=== PATIENT | female | born 1960 | race Caucasian/White ===

== ENCOUNTER 2020-04-07 07:50 | Outpatient (CLI) | payer OTHER, SELFPAY ==
[2020-04-07 09:02] LABS: Basophils Absolute Auto 0.1 K/mm3 (0.0-0.1); Basophils Percent Auto 0.8 % (0.2-1.2); Eosinophils Absolute Auto 0.2 K/mm3 (0-0.3); Eosinophils Percent Auto 2.7 % (0-4.4); Hematocrit 40.2 % (37.0-47.0); Hemoglobin 13.6 g/dL (12.0-15.0); Immature Granulocyte Absolute 0.01 K/mm3 (0.00-0.031); Immature Granulocyte Percent A 0.1 % (0-0.5); Lymphocytes Absolute Auto 1.87 K/mm3 (0.9-3.2); Lymphocytes Percent Auto 24.9 % (18.3-44.2); Mean Corpuscular HGB Conc 33.8 g/dl (32-36); Mean Corpuscular Hemoglobin 30.2 pg (26-34); Mean Corpuscular Volume 89.1 fl (80-100); Mean Platelet Volume 10.1 fl (7.4-10.4); Monocytes Absolute Auto 0.9 K/mm3 (0.1-0.6); Neutrophils Absolute Auto 4.5 K/mm3 (1.3-6.7); Neutrophils Percent Auto 59.5 % (45.5-73.1); Platelet Count Result 326 k/mm3 (150-375); Red Blood Count 4.51 M/mm3 (4.2-5.4); Red Cell Distribution Width 11.9 % (11.5-14.5); White Blood Count 7.5 K/mm3 (4.5-10.0)
[2020-04-07 09:18] LABS: Alanine Aminotransferase 23 U/L (4-35); Albumin Level 4.1 g/dL (3.5-5.1); Alkaline Phosphatase 116 U/L (38-126); Anion Gap 7 mmol/L (8-16); Aspartate Amino Transferase 21 U/L (14-36); Bilirubin,Total 0.8 mg/dL (0.2-1.3); Blood Urea Nitrogen 15 mg/dL (7-17); Calcium 9.4 mg/dL (8.4-10.2); Carbon Dioxide 25 mmol/L (22-30); Chloride 107 mmol/L (98-107); Cholesterol 148 mg/dL (0-200); Estimated Glomerular Filt Rate 57; Glucose 113 mg/dL (65-105); HDL Direct 50 mg/dL; Potassium 4.1 mmol/L (3.4-5.0); Sodium 139 mmol/L (137-145); Triglycerides 111 mg/dL (<150)
[2020-04-07 09:29] LABS: LDL Cholesterol Direct 78 mg/dL
[2020-04-07 10:01] LABS: Vitamin D 25 Hydroxy 13.9 ng/mL
[2020-04-07 11:02] LABS: Free T4 Free Thyroxine Reflex 1.13 ng/dL (0.78-2.19)
[2020-04-07 12:01] LABS: Total Triiodothyronine (T3) 1.09 NG/ML (0.97-1.69)
== END 2020-04-07 07:51 | disposition home or self-care (01) ==
PROVIDERS: PCP Student in an Organized Health Care Education/Training Program; Visit Provider Student in an Organized Health Care Education/Training Program
DX: E53.8 Deficiency of other specified B group vitamins (principal); Z13.220 Encounter for screening for lipoid disorders; Z13.29 Encounter for screening for other suspected endocrine disorder; Z13.228 Encounter for screening for other metabolic disorders; Z13.0 Encounter for screening for diseases of the blood and blood-forming organs and certain disorders involving the immune mechanism; E78.5 Hyperlipidemia, unspecified
CPT/HCPCS: 36415; 80053; 80061; 82306; 82607; 82746; 84439; 84443; 84480; 85025

== ENCOUNTER 2021-07-18 04:01 | Emergency (ER) | payer OTHER, SELFPAY ==
[2021-07-18 04:18] VITALS: BP 168/104; PULSE 129; RESP 20; O2SAT 97
--- NOTE | 2021-07-18 06:05 | PC.NURSE ---
Pt reports she is here c daughter who has same symptoms, as did pt's grandson. pt c/o n/v/d x 12 hours. a/o x 4. skin pink, cool, kumar. no s/s of distress.
[2021-07-18] MEDS: SODIUM CHLORIDE 0.9% IV 1,000 ML 999 ML IV CONT (06:11)
[2021-07-18] MEDS: ONDANSETRON INJ 4 MG/2 ML VIAL IV PUSH (06:11)
[2021-07-18 06:18] LABS: Basophils Percent Auto 0.3 % (0.2-1.2); Eosinophils Percent Auto 0.1 % (0-4.4); Hematocrit 46.7 % (37.0-47.0); Hemoglobin 15.5 g/dL (12.0-15.0); Immature Granulocyte Absolute 0.03 K/mm3 (0.00-0.031); Immature Granulocyte Percent A 0.3 % (0-0.5); Lymphocytes Absolute Auto 0.49 K/mm3 (0.9-3.2); Lymphocytes Percent Auto 4.3 % (18.3-44.2); Mean Corpuscular HGB Conc 33.2 g/dl (32-36); Mean Corpuscular Hemoglobin 30.1 pg (26-34); Mean Corpuscular Volume 90.7 fl (80-100); Mean Platelet Volume 10.3 fl (7.4-10.4); Monocytes Absolute Auto 0.8 K/mm3 (0.1-0.6); Monocytes Percent Auto 6.6 % (2.6-8.5); Neutrophils Percent Auto 88.4 % (45.5-73.1); Platelet Count Result 269 k/mm3 (150-375); Red Blood Count 5.15 M/mm3 (4.2-5.4); Red Cell Distribution Width 11.9 % (11.5-14.5); White Blood Count 11.3 K/mm3 (4.5-10.0)
--- NOTE | 2021-07-18 06:25 | ED.GENADULT ---
HPI - General Adult General Chief complaint: Nausea/Vomiting/Diarrhea Stated complaint: vomiting Time Seen by Provider: 07/18/21 05:08 History of Present Illness HPI narrative: Patient is a 60-year-old female who presents ER with nausea/vomiting/diarrhea. Sudden onset last day. No alleviating factors at home. Feels dehydrated. No syncope or dizziness. Her daughter and her grand child both have had GI illness. No loss of taste or smell. Related Data Home Medications Medication Instructions Recorded Confirmed atorvastatin 07/18/21 diltiazem HCl [DILT-XR] PO 07/18/21 doxazosin mg 07/18/21 enalapril maleate 07/18/21 fluticasone propion-salmeterol INHALATION 07/18/21 [Wixela Inhub] methylphenidate HCl 07/18/21 omeprazole 07/18/21 Allergies Allergy/AdvReac Type Severity Reaction Status Date / Time metoclopramide [From Reglan] AdvReac Hallucinati Verified 07/18/21 05:09 ng naproxen AdvReac Swelling Verified 07/18/21 05:09 of Lip/Tongue/Throat Review of Systems Review of Systems: All systems reviewed & are unremarkable except as noted in HPI and below Constitutional: Constitutional: Denies chills, Reports fatigue, Denies fever(s) and Reports weakness ENT: Denies nasal congestion and Denies sore throat Cardiovascular: Cardiovascular: Denies chest pain and Denies radiating jaw, neck or arm pain Gastrointestinal: Gastrointestinal: Denies abdominal pain, Reports diarrhea, Reports nausea and Reports vomiting Genitourinary: Genitourinary: Denies nocturia and Denies dysuria PMFSH Past Medical History Medical History (Updated 07/18/21 @ 06:29 by Ben Bynum MD) Chronic kidney disease Hypertension Surgical History Surgical History (Updated 07/18/21 @ 06:27 by Ben Bynum MD) History of cholecystectomy Social History Social History (Updated 07/18/21 @ 06:27 by Ben Bynum MD) Smoking status: Never smoker Exam Narrative: GENERAL: Fatigued-appearing, well-nourished, and in no acute distress. HEAD: Normocephalic, atraumatic. CHEST: Clear to auscultation. No respiratory distress. HEART: Tachycardic and regular. Normal peripheral pulses. ABDOMEN: Soft, nontender, nondistended. EXTREMITIES: Normal range of motion. No edema. SKIN: Warm, dry, no rash. NEURO: Alert and oriented x3. PSYCH: Normal mood and affect. Course Course Emergency Course: Patient given Zofran and fluids. Vital Signs Vital signs: Vital Signs Pulse Rate 129 H 07/18/21 04:18 Respiratory Rate 20 07/18/21 04:18 Blood Pressure 168/104 H 07/18/21 04:18 Pulse Oximetry 97 07/18/21 04:18 Pulse Rate 129 H 07/18/21 04:18 Respiratory Rate 20 07/18/21 04:18 Blood Pressure 168/104 H 07/18/21 04:18 Pulse Oximetry 97 07/18/21 04:18 Medical Decision Making Vital Signs Vital Signs: Vital Signs Pulse Rate 129 H 07/18/21 04:18 Respiratory Rate 20 07/18/21 04:18 Blood Pressure 168/104 H 07/18/21 04:18 Pulse Oximetry 97 07/18/21 04:18 Pulse Rate 129 H 07/18/21 04:18 Respiratory Rate 20 07/18/21 04:18 Blood Pressure 168/104 H 07/18/21 04:18 Pulse Oximetry 97 07/18/21 04:18 Lab Data Result diagrams: 07/18/21 06:06 07/18/21 06:06 Labs: Lab Results 07/18/21 07/18/21 Range/Units 06:06 06:06 WBC 11.3 H (4.5-10.0) K/mm3 RBC 5.15 (4.2-5.4) M/mm3 Hgb 15.5 H (12.0-15.0) g/dL Hct 46.7 (37.0-47.0) % MCV 90.7 (80-100) fl MCH 30.1 (26-34) pg MCHC 33.2 (32-36) g/dl RDW 11.9 (11.5-14.5) % Plt Count 269 (150-375) k/mm3 MPV 10.3 (7.4-10.4) fl Immature Gran % (Auto) 0.3 (0-0.5) % Neut % (Auto) 88.4 H (45.5-73.1) % Lymph % (Auto) 4.3 L (18.3-44.2) % [place] % (Auto) 6.6 (2.6-8.5) % Eos % (Auto) 0.1 (0-4.4) % Baso % (Auto) 0.3 (0.2-1.2) % Lymph # (Auto) 0.49 L (0.9-3.2) K/mm3 [place] # (Auto) 0.8 H (0.1-0.6) K/mm3 Eos # (Auto) 0.0 (0-0.3
[2021-07-18 06:38] LABS: Alanine Aminotransferase 23 U/L (4-35); Albumin Level 4.4 g/dL (3.5-5.1); Alkaline Phosphatase 143 U/L (38-126); Anion Gap 11 mmol/L (8-16); Aspartate Amino Transferase 26 U/L (14-36); Bilirubin,Total 1.1 mg/dL (0.2-1.3); Blood Urea Nitrogen 14 mg/dL (7-17); Calcium 9.5 mg/dL (8.4-10.2); Carbon Dioxide 22 mmol/L (22-30); Chloride 106 mmol/L (98-107); Estimated CRCL calculation 52 ml/min; Estimated Glomerular Filt Rate 57; Glucose 141 mg/dL (65-110); Lipase 103 U/L (23-300); Sodium 139 mmol/L (137-145)
[2021-07-18 07:26] VITALS: BP 144/96; PULSE 90; RESP 18; O2SAT 100
== END 2021-07-18 07:28 | disposition home or self-care (01) ==
PROVIDERS: Emergency Provider Emergency Medicine; PCP Student in an Organized Health Care Education/Training Program
DX: K52.9 Noninfective gastroenteritis and colitis, unspecified (principal); I12.9 Hypertensive chronic kidney disease with stage 1 through stage 4 chronic kidney disease, or unspecified chronic kidney disease; N18.9 Chronic kidney disease, unspecified
CPT/HCPCS: 36415; 80053; 83690; 85025; 96361; 96374; 99284; J2405; J7030

== ENCOUNTER 2021-11-18 20:51 | Emergency (ER) | payer OTHER, SELFPAY ==
--- NOTE | ~2021-11-18 | XR_ITS ---
EXAMINATION: XR hand RT min 3V DATE: 11/18/2021 21:23 INDICATION: Right hand pain TECHNIQUE: Posteroanterior, oblique and lateral views of the right hand were obtained. COMPARISON: None. FINDINGS: Diffuse osteopenia. Bone alignment is normal. No fracture. Of mild polyarticular osteoarthritis at th e distal radioulnar, radiocarpal, triscaphe, first carpometacarpal and multiple interphalangeal joint s. No erosions to suggest inflammatory arthritis. IMPRESSION: 1. Mild polyarticular osteoarthritis. Reviewed, dictated and finalized at location A.
[2021-11-18 20:58] VITALS: BP 181/103; PULSE 89; RESP 16; TEMP 36.4; O2SAT 98
--- NOTE | 2021-11-18 21:11 | ED.ANIMALBIT ---
HPI - Animal Bite General Chief Complaint: Animal Bite Stated Complaint: dog bite right hand Time Seen by Provider: 11/18/21 21:06 Source: patient Mode of arrival: ambulatory History of Present Illness HPI narrative: 61-year-old female presents today with complaints of dog bite to right hand 15 minutes prior to arrival. Patient states it was her own dog that bit her and is up-to-date on shots. Patient states she was trying to take something from the dog when it bit her. Bleeding controlled upon arrival. Patient unsure of tetanus status. States that it feels like her hand is broken. Patient with full range of motion. CMS intact. Related Data Home Medications Medication Instructions Recorded Confirmed atorvastatin 07/18/21 diltiazem HCl [DILT-XR] PO 07/18/21 doxazosin mg 07/18/21 enalapril maleate 07/18/21 fluticasone propion-salmeterol INHALATION 07/18/21 [Wixela Inhub] methylphenidate HCl 07/18/21 omeprazole 07/18/21 Allergies Allergy/AdvReac Type Severity Reaction Status Date / Time iohexol Allergy Hives Verified 11/18/21 21:04 [From contrast - CT, X-RAY] metoclopramide [From Reglan] AdvReac Hallucinati Verified 11/18/21 21:03 ng naproxen AdvReac Swelling Verified 11/18/21 21:03 of Lip/Tongue/Throat Review of Systems Review of Systems: CONSTITUTIONAL: Denies fever, chills, or sweats. EYES: Denies visual changes, redness, or discharge. ENT: Denies rhinorrhea, congestion, sore throat, or otalgia. CARDIOVASCULAR: Denies chest pain, palpitations, or edema. RESPIRATORY: Denies cough or dyspnea. GASTROINTESTINAL: Denies abdominal pain, nausea, vomiting, or diarrhea. GENITOURINARY: Denies dysuria or hematuria. SKIN: Dog bite to right hand. Denies rash or itching. MUSCULOSKELETAL: Denies back pain, joint pain, or myalgia. NEUROLOGIC: Denies headache, numbness, dizziness, or weakness. PSYCHIATRIC: Denies anxiety or depression. [facility] Past Medical History Medical History Chronic kidney disease Hypertension Surgical History Surgical History History of cholecystectomy Social History Social History Smoking status: Never smoker Exam Narrative: GENERAL: Well-appearing, well-nourished, and in no acute distress. HEAD: Normocephalic, atraumatic. EYES: PERRLA and EOMI. ENT: Nares clear, no rhinorrhea or epistaxis. Mucous membranes moist. Oropharynx without tonsillar hypertrophy exudate or other lesions. Bilateral TMs pearly scott nonbulging NECK: Supple. No adenopathy or masses. No carotid bruits or JVD CHEST: Clear to auscultation. No respiratory distress. No wheezes rales or rhonchi HEART: Regular rate and rhythm. No murmur heard. Normal peripheral pulses. ABDOMEN: Soft, nontender, nondistended, normal active bowel sounds. EXTREMITIES: Normal range of motion. No edema. SKIN: 4 puncture dickey noted to right hand 2 on left dorsal side and 2 on right dorsal side near base of thumb. No erythema noted, purulent drainage, or warmth. Warm, dry, no rash. NEURO: No focal deficits. Alert and oriented x3. PSYCH: Normal mood and affect. Course Vital Signs Vital signs: Vital Signs Temperature 36.4 C 11/18/21 20:58 Pulse Rate 89 11/18/21 20:58 Respiratory Rate 16 11/18/21 20:58 Blood Pressure 181/103 H 11/18/21 20:58 Pulse Oximetry 98 11/18/21 20:58 Temperature 36.4 C 11/18/21 20:58 Pulse Rate 88 11/18/21 22:10 Respiratory Rate 16 11/18/21 22:10 Blood Pressure 174/90 H 11/18/21 22:10 Pulse Oximetry 100 11/18/21 22:10 MDM - Animal Bite Differential Diagnosis Differential diagnosis: Likely bite by animal Medical Records Attestation: I reviewed the patient's medical records. Imaging Data Radiologist's impression: Impressions Hand X-Ray 11/18/21 21:28 IMPRESSION: 1. Mil
[2021-11-18] MEDS: AMOXICILLIN/CLAVULANATE K 875-125 MG TAB 1 TABLET PO (21:46)
[2021-11-18] MEDS: TETANUS,DIPHTHERIA,AC PERTUSSIS ADULT (0.5 ML) BOOSTRIX IM (21:46)
[2021-11-18 22:10] VITALS: BP 174/90; PULSE 88; RESP 16; O2SAT 100
== END 2021-11-18 22:16 | disposition home or self-care (01) ==
LOC: ANHED 21:58
PROVIDERS: Emergency Provider Nurse Practitioner Family; PCP Student in an Organized Health Care Education/Training Program
DX: S61.451A Open bite of right hand, initial encounter (principal); Z23 Encounter for immunization; I12.9 Hypertensive chronic kidney disease with stage 1 through stage 4 chronic kidney disease, or unspecified chronic kidney disease; N18.9 Chronic kidney disease, unspecified; M18.9 Osteoarthritis of first carpometacarpal joint, unspecified; M19.041 Primary osteoarthritis, right hand; M19.031 Primary osteoarthritis, right wrist; W54.0XXA Bitten by dog, initial encounter
CPT/HCPCS: 73130; 90471; 90715; 99283; A9270

== ENCOUNTER 2024-08-29 11:40 | Outpatient (CLI) | payer MEDICARE, SELFPAY ==
--- NOTE | ~2024-08-29 | US_ITS ---
EXAMINATION: US venous doppler LE DATE: 08/29/2024 12:15 INDICATION: Right lower limb pain and swelling TECHNIQUE: Grayscale ultrasound images without and with compression and Doppler ultrasound images of the right lower extremity veins were obtained. COMPARISON: None. FINDINGS: The visualized portions of right common femoral vein, profunda (deep) femoral vein, femoral vein, pop liteal vein, peroneal trunk, posterior tibial veins, peroneal veins, gastrocnemius vein and greater s aphenous vein outflow are patent. IMPRESSION: 1. No deep venous thrombosis in the right lower limb. Reviewed, dictated and finalized at location B. BALL MOLDER
--- OUTSIDE RECORDS SUMMARY | 2024-08-29 12:05 | XMS_ITS | Encounter Summary ---
Author Organization [facility] Address [address] [place] [address] Care Team Providers Care News Editor Name Role Phone Chance Medellin MD Primary Care Provider [phone] Encounter Details Date Type Department Care Team (Late st Contact Info) Description 04/03/2007 Outpatient Historical [facility] 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
--- OUTSIDE RECORDS SUMMARY | 2024-08-29 12:05 | XMS_ITS | Encounter Summary ---
Author Organization [facility] Address [address] [place] [address] Care Team Providers Care Computer Game Tester Name Role Phone Chance Medellin MD Primary Care Provider [phone] Encounter Details Date Type Department Care Team (Late st Contact Info) Description 02/04/2007 Outpatient Historical Division of Neurology [address] [address] Nohemy Benitez MD [address] [facility] [address] [place] [address] Social History Tobacco Use Types Packs/Day Years Used Date Smoking Tobacco: Never Assessed Comments Unknown Sex and Gender Information Value Date Recorded Sex Assigned at Not on file 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
--- OUTSIDE RECORDS SUMMARY | 2024-08-29 12:06 | XMS_ITS | Encounter Summary ---
Author Organization [facility] Address [address] [place]: [place] [address] Care Team Providers Care Inspector Automatic Typewriter Name Role Phone Chance Medellin MD Primary Care Provider [phone] Encounter Details Date Type Department Care Team (Late st Contact Info) Description 04/23/1991 [place] 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 [address] [place] [phone] PCP - General Internal Medicine 04/28/16 documented as of this encounter
--- OUTSIDE RECORDS SUMMARY | 2024-08-29 12:06 | XMS_ITS | Encounter Summary ---
Author Organization [facility] Address [address] [place] [address] Care Team Providers Care Company Pilot Name Role Phone Chance Medellin MD Primary Care Provider [phone] Encounter Details Date Type Department Care Team (Late st Contact Info) Description 11/25/1999 Outpatient Historical [facility] Internal Medicine [facility] [address] [facility] [address] [facility] [address] [place] [address] Niesha Arevalo MD [address] [place] [address] Social History Tobacco Use Types Packs/Day Years Used Date Smoking Tobacco: Never Assessed Comments Unknown Sex and Gender Information Value Date Recorded Sex Assigned at Not on file 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
--- OUTSIDE RECORDS SUMMARY | 2024-08-29 12:06 | XMS_ITS | Encounter Summary ---
Author Organization [facility] Address [address] [place] [address] Care Team Providers Care Sandblaster Paint Sprayer Name Role Phone Chance Medellin MD Primary Care Provider [phone] Encounter Details Date Type Department Care Team (Late st Contact Info) Description 05/07/2007 Outpatient Historical [facility] 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
--- OUTSIDE RECORDS SUMMARY | 2024-08-29 12:06 | XMS_ITS | Encounter Summary ---
Author Organization [facility] Address [address] [place] [address] Care Team Providers Care Steam Press Tender Name Role Phone Chance Medellin MD Primary Care Provider [phone] Encounter Details Date Type Department Care Team (Late st Contact Info) Description 12/04/2001 Outpatient Historical [facility] Internal Medicine [facility] [address] [place] [address] Niesha Arevalo MD [address] [place] [address] Social History Tobacco Use Types Packs/Day Years Used Date Smoking Tobacco: Never Assessed Comments Unknown Sex and Gender Information Value Date Recorded Sex Assigned at Not on file Legal Sex Female 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
--- OUTSIDE RECORDS SUMMARY | 2024-08-29 12:06 | XMS_ITS | Encounter Summary ---
Author Organization [facility] Address 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
--- OUTSIDE RECORDS SUMMARY | 2024-08-29 12:06 | XMS_ITS | Encounter Summary ---
Author Organization [facility] Address [address] [place] [address] Care Team Providers Care Earthmoving Plant Operator Name Role Phone Chance Medellin MD Primary Care Provider [phone] Encounter Details Date Type Department Care Team (Late st Contact Info) Description 11/05/2007 Outpatient Historical [facility] Primary Care - [address] [place] [address] Franklyn Tolbert MD [address] [facility] [address] [address] Social History Tobacco Use Types Packs/Day Years Used Date Smoking Tobacco: Never Assessed Comments Unknown Sex and Gender Information Value Date Recorded Sex Assigned at Not on file Legal Sex Female 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
--- OUTSIDE RECORDS SUMMARY | 2024-08-29 12:06 | XMS_ITS | Encounter Summary ---
Author Organization [facility] Address [address] [place] [address] Care Team Providers Care Warper Tender Name Role Phone Chance Medellin MD Primary Care Provider [phone] Encounter Details Date Type Department Care Team (Late st Contact Info) Description 11/18/1999 Outpatient Historical [facility] Internal Medicine [facility] [address] [facility] [address] [place] [address] Niesha Arevalo MD [address] [place] [address] Social History Tobacco Use Types Packs/Day Years Used Date Smoking Tobacco: Never Assessed Comments Unknown Sex and Gender Information Value Date Recorded Sex Assigned at Not on file Legal Sex Female 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
--- OUTSIDE RECORDS SUMMARY | 2024-08-29 12:06 | XMS_ITS | Encounter Summary ---
Author Organization [facility] Address [address] [place] [address] Care Team Providers Care Junior Underwriter Name Role Phone Chance Medellin MD Primary Care Provider [phone] Encounter Details Date Type Department Care Team (Late st Contact Info) Description 06/11/2007 Outpatient Historical [facility] Internal Medicine Medical [facility] [address] [facility] [address] [address] Nina Contreras MD Social History Tobacco Use Types Packs/Day Years Used Date Smoking Tobacco: Never Assessed Comments Unknown Sex and Gender Information Value Date Recorded Sex Assigned at Not on file Legal Sex Female 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
--- OUTSIDE RECORDS SUMMARY | 2024-08-29 12:06 | XMS_ITS | Encounter Summary ---
Author Organization [facility] Address [address] [place] [address] Care Team Providers Care Technical Service Representative Name Role Phone Chance Medellin MD Primary Care Provider [phone] Encounter Details Date Type Department Care Team (Late st Contact Info) Description 12/02/1999 Outpatient Historical [facility] Internal Medicine [facility] [address] [facility] [address] [place] [address] Niesha Arevalo MD [address] [place] [address] Social History Tobacco Use Types Packs/Day Years Used Date Smoking Tobacco: Never Assessed Comments Unknown Sex and Gender Information Value Date Recorded Sex Assigned at Not on file Legal Sex Female 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
--- OUTSIDE RECORDS SUMMARY | 2024-08-29 12:06 | XMS_ITS | Encounter Summary ---
Author Organization [facility] Address [address] [place] [address] Care Team Providers Care Dividing Machine Operator Helper Name Role Phone Chance Medellin MD Primary Care Provider [phone] Encounter Details Date Type Department Care Team (Late st Contact Info) Description 02/23/1999 Outpatient Historical [facility] Internal Medicine [facility] [address] [facility] [address] [place] [address] Niesha Arevalo MD [address] [place] [address] Social History Tobacco Use Types Packs/Day Years Used Date Smoking Tobacco: Never Assessed Comments Unknown Sex and Gender Information Value Date Recorded Sex Assigned at Not on file Legal Sex Female 4:22 AM REGISTERED REPRESENTATIVE Gender Identity Not on file Sexual Orientation Not on file documented as of this encounter Plan of Treatment Not on file documented as of this encounter Visit Diagnoses Not on filedocumented in this encounter Care Teams Dividing Machine Operator Helper Relationship Specialty Start Date End Date Chance Medellin MD [address] [facility] [address] [place] [address] PCP - General Internal Medicine 04/28/16 documented as of this encounter
--- OUTSIDE RECORDS SUMMARY | 2024-08-29 12:06 | XMS_ITS | Encounter Summary ---
Author Organization [facility] Address [address] [place] [address] Care Team Providers Care Carcass Washer Name Role Phone Chance Medellin MD Primary Care Provider [phone] Encounter Details Date Type Department Care Team (Late st Contact Info) Description 08/19/2001 Outpatient Historical [facility] Internal Medicine [facility] [address] [facility] [address] [place] [address] Niesha Arevalo MD [address] [place] [address] Social History Tobacco Use Types Packs/Day Years Used Date Smoking Tobacco: Never Assessed Comments Unknown Sex and Gender Information Value Date Recorded Sex Assigned at Not on file Legal Sex Female 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
--- OUTSIDE RECORDS SUMMARY | 2024-08-29 12:06 | XMS_ITS | Encounter Summary ---
Author Organization [facility] Address [address] [place] [address] Care Team Providers Care Research Manufacturing Operator Name Role Phone Chance Medellin MD Primary Care Provider [phone] Encounter Details Date Type Department Care Team (Late st Contact Info) Description 09/16/[address] [facility] Internal Medicine [facility] [address] [facility] [address] [place] [address] Niesha Arevalo MD [address] [place] [address] Social History Tobacco Use Types Packs/Day Years Used Date Smoking Tobacco: Never Assessed Comments Unknown Sex and Gender Information Value Date Recorded Sex Assigned at Not on file Legal Sex Female 4:22 AM DIRECTOR OF LABOR RELATIONS Gender Identity Not on file Sexual Orientation Not on file documented as of this encounter Plan of Treatment Not on file documented as of this encounter Visit Diagnoses Not on filedocumented in this encounter Care Teams Research Manufacturing Operator Relationship Specialty Start Date End Date Chance Medellin MD [address] [facility] [address] [place] [phone] PCP - General Internal Medicine 04/28/16 documented as of this encounter
--- OUTSIDE RECORDS SUMMARY | 2024-08-29 12:06 | XMS_ITS | Encounter Summary ---
Author Organization [facility] Address [address] [place] [address] Care Team Providers Care Java Development Manager Name Role Phone Chance Medellin MD Primary Care Provider [phone] Encounter Details Date Type Department Care Team (Late st Contact Info) Description 07/19/2001 Outpatient Historical [facility] Internal Medicine [facility] [address] [facility] [address] [place] [address] Niesha Arevalo MD [address] [place] [address] Social History Tobacco Use Types Packs/Day Years Used Date Smoking Tobacco: Never Assessed Comments Unknown Sex and Gender Information Value Date Recorded Sex Assigned at Not on file Legal Sex Female 4:22 AM DISTANCE EDUCATION DIRECTOR Gender Identity Not on file Sexual Orientation Not on file documented as of this encounter Plan of Treatment Not on file documented as of this encounter Visit Diagnoses Not on filedocumented in this encounter Care Teams Java Development Manager Relationship Specialty Start Date End Date Chance Medellin MD [address] [facility] [address] [place] [phone] PCP - General Internal Medicine 04/28/16 documented as of this encounter
--- OUTSIDE RECORDS SUMMARY | 2024-08-29 12:06 | XMS_ITS | Encounter Summary ---
Author Organization [facility] Address [address] [place] [address] Care Team Providers Care Raw Stock Drier Tender Name Role Phone Chance Medellin MD Primary Care Provider [phone] Encounter Details Date Type Department Care Team (Late st Contact Info) Description 06/11/[address] [facility] [address] [facility] [address] [address] Nohemy Benitez MD [address] [place] [address] Social History Tobacco Use Types Packs/Day Years Used Date Smoking Tobacco: Never Assessed Comments Unknown Sex and Gender Information Value Date Recorded Sex Assigned at Not on file Legal Sex Female 4:22 AM UNIX ANALYST Gender Identity Not on file Sexual Orientation Not on file documented as of this encounter Plan of Treatment Not on file documented as of this encounter Visit Diagnoses Not on filedocumented in this encounter Care Teams Raw Stock Drier Tender Relationship Specialty Start Date End Date Chance Medellin MD [address] [facility] [address] [place] [phone] PCP - General Internal Medicine 04/28/16 documented as of this encounter
--- OUTSIDE RECORDS SUMMARY | 2024-08-29 12:06 | XMS_ITS | Encounter Summary ---
Author Organization [facility] Address [address] [place] [address] Care Team Providers Care General Matcher Name Role Phone Chance Medellin MD Primary Care Provider [phone] Encounter Details Date Type Department Care Team (Late st Contact Info) Description 04/09/2007 Outpatient Historical [facility] [address] [facility] [address] [address] Nohemy Benitez MD [address] [facility] [address] [place] [address] Social History Tobacco Use Types Packs/Day Years Used Date Smoking Tobacco: Never Assessed Comments Unknown Sex and Gender Information Value Date Recorded Sex Assigned at Not on file Legal Sex Female 4:22 AM SR. PAYROLL PROCESSOR Gender Identity Not on file Sexual Orientation Not on file documented as of this encounter Plan of Treatment Not on file documented as of this encounter Visit Diagnoses Not on filedocumented in this encounter Care Teams General Matcher Relationship Specialty Start Date End Date Chance Medellin MD [address] [facility] [address] [place] [phone] PCP - General Internal Medicine 04/28/16 documented as of this encounter
--- OUTSIDE RECORDS SUMMARY | 2024-08-29 12:06 | XMS_ITS | Encounter Summary ---
Author Organization [employer] Address [address] [place] [address] Care Team Providers Care Brass Molder Helper Name Role Phone Chance Medellin MD Primary Care Provider [phone] Encounter Details Date Type Department Care Team (Late st Contact Info) Description 09/19/1999 Outpatient Historical [facility] Gurpreet Kevin MD NO ADDRESS ON FILE Blood in stool (Primary Dx) Social History Tobacco Use Types Packs/Day Years Used Date Smoking Tobacco: Never Assessed Comments Unknown Sex and Gender Information Value Date Recorded Sex Assigned at Not on file Legal Sex Female 4:22 AM DIESEL ENGINE INSPECTOR Gender Identity Not on file Sexual Orientation Not on file documented as of this encounter Plan of Treatment Not on file documented as of this encounter Visit Diagnoses Diagnosis Blood in stool- Primary documented in this encounter Care Teams Brass Molder Helper Relationship Specialty Start Date End Date Chance Medellin MD [address] [facility] [address] [place] [phone] PCP - General Internal Medicine 04/28/16 documented as of this encounter
--- OUTSIDE RECORDS SUMMARY | 2024-08-29 12:06 | XMS_ITS | Encounter Summary ---
Author Organization [facility] Address [address] [place] [address] Care Team Providers Care Police Lieutenant Precinct Name Role Phone Chance Medellin MD Primary Care Provider [phone] Encounter Details Date Type Department Care Team (Latest Contact Info) Description 11/05/2007 Outpatient Historical [facility] Primary Care - [address] [place] [address] Franklyn Tolbert MD [address] [facility] [address] [address] Other and Unspecified Hyperlipidemia Social History Tobacco Use Types Packs/Day Years Used Date Smoking Tobacco: Never Assessed Comments Unknown Sex and Gender Information Value Date Recorded Sex Assigned at Not on file Legal Sex Female 4:22 AM ANESTHESIOLOGY FELLOW Gender Identity Not on file Sexual Orientation Not on file documented as of this encounter Plan of Treatment Not on file documented as of this encounter Procedures Procedure Name Priority Date/Time Associated Diagnosis Comments URINALYSIS WITH REFLEX CULTURE Routine 11/05/2007 9:39 PM CDT URINALYSIS W/REFLEX MICROSCOPIC Routine 11/05/2007 9:39 PM CDT TSH Routine 11/05/2007 9:39 PM CDT LIPID PANEL Routine 11/05/2007 9:39 PM CDT COMPREHENSIVE METABOLIC PANEL Routine 11/05/2007 9:39 PM CDT documented in this encounter Results * URINALYSIS (11/05/2007 9:39 PM CDT) BLOOD UA Negative Negative [facility] GLUCOSE UA Negative Negative [facility] COLOR UA Yellow [facility] NITRITE UA Negative Negative [facility] UROBILINOGEN UA <1 <=1 mg/dL [facility] PH UA 6.0 5.0 - 8.0 [facility] KETONES UA Negative Negative [facility] CLARITY UA Clear Clear [facility] PROTEIN UA Negative Negative [facility] BILIRUBIN UA Negative Negative [facility] LEUKOCYTE ESTERASE UA Negative Negative [facility] SPECIFIC GRAVITY UA 1.014 1.001 - 1.035 [facility] 11/05/2007 9:39 PM CDT 11/05/2007 10:25 PM CDT Franklyn Tolbert MD URINE ORDERABLES Final Resul t [facility] [address] [facility] [place] [address] * URINALYSIS WITH REFLEX CULTURE (11/05/2007 9:39 PM CDT) URINE CULTURE ORDER Not indicated [facility] Comment: Criteria for a reflex culture include one or more of the following: Abnormal nitrite, leukocyte esterase, WBCs or RBCs. Lack of qualifying criteria does not exclude the possiblity of a urinary tract infection. Dilute urine, drug interference, etc. may decrease the sensitivity of the criteria analytes. Urine, clean catch 11/05/2007 9:39 PM CDT 11/05/2007 10:25 PM CDT Franklyn Tolbert MD URINE ORDERABLES Final Resul t Performing Organization Address [facility]/ZIP Co de Phone Number [facility] [address] [place], [place] [address] * TSH (11/05/2007 9:39 PM CDT) Pathologist [facility] TSH 2.90 0.27 - 4.20 uU/mL [facility] Blood specimen (specimen) 11/05/2007 9:39 PM CDT 11/05/2007 10:25 PM CDT Franklyn Tolbert MD CHEMISTRY ORDERABLES Final R esult Performing Organization Address [facility] Co de Phone Number [facility] [address] [place] [address] * COMPREHENSIVE METABOLIC PANEL (11/05/2007 9:39 PM CDT) [facility] GLUCOSE 93 65 - 99 mg/dL [facility] AST 19 12 - 32 U/L [facility] BUN 9 6 - 20 mg/dL [facility] CALCIUM 9.0 8.4 - 10.2 mg/dL [facility] ALBUMIN 4.3 3.4 - 4.8 g/dL [facility] CHLORIDE 104 96 - 108 mmol/L [facility] CREATININE 0.91 0.51 - 0.95 mg/dL [facility] ALT 15 0 - 31 U/L [facility] SODIUM 139 135 - 145 mmol/L [facility] ALKALINE PHOSPHATASE 82 35 - 104 U/L [facility] CO2 25 22 - 30 mmol/L [facility] BILIRUBIN TOTAL 0.4 0.2 - 1.0 mg/dL [facility] POTASSIUM 3.7 3.5 - 4.9 mmol/L [facility] TOTAL PROTEIN 7.5 6.3 - 8.6 g/dL [facility] GFR, >60 >=60 mL/min/1.7 sq meter [facility] GFR >60 >=60 mL/min/1.7 sq meter [facility] Comment: Estimated GFR rate interpretative information for both Americans and non- Americans is available on the [facility] Intranet at: [email or web address] Select: Lab Policies and Procedures Select: Reference Ranges - GFR Blood specimen (specimen) 11/05/2007 9:39 PM CDT 11/05/2007 10:25 PM CDT Franklyn Tolbert MD CHEMISTRY ORDERABLES Edited [facility] [address] [facility] [facility] [place] [address] * (ABNORMAL) LIPID PANEL (11/05/2007 9:39 PM CDT) HDL 48 40 - 59 mg/dL [facility] CHOLESTEROL 181 100 - 199 mg/dL [facility] CHOL/HDL RATIO 3.8 2.0 - 5.0 [facility] TRIGLYCERIDE 116 10 - 149 mg/dL [facility] LDL CALCULATED 110(H) <=99 mg/dL [facility] LIPID PANEL COMMENT See Below [facility] Comment: The adult ATP and pediatric NCEP classifications for lipids are available on the [facility] Intranet at: [email or web address] Select: Lab Policies and Procedures,Current Select: Lipid Panel Interpretation Blood specimen (specimen) 11/05/2007 9:39 PM CDT 11/05/2007 10:25 PM CDT Franklyn Tolbert MD CHEMISTRY ORDERABLES Edited [facility] [address] [place] [address] documented in this encounter Visit Diagnoses Diagnosis Other and unspecified hyperlipidemia documented in this encounter Care Teams Police Lieutenant Precinct Relationship Specialty Start Date End Date Chance Medellin MD [address] [address] PCP - General Internal Medicine 04/28/16 documented as of this encounter
--- OUTSIDE RECORDS SUMMARY | 2024-08-29 12:06 | XMS_ITS | Encounter Summary ---
Author Organization [facility] Address [address] [facility] Attn: Epic Prelude ADT [place] [address] Care Team Providers Care Chief Of Staff Name Role Phone Chance Medellin MD Primary Care Provider [phone] Encounter Details Date Type Department Care Team (Latest Contact Info) Description 09/19/2007 Orders Only Nina Contreras MD Social History Tobacco Use Types Packs/Day Years Used Date Smoking Tobacco: Never Assessed Comments Unknown Sex and Gender Information Value Date Recorded Sex Assigned at Not on file Legal Sex Female 4:22 AM LINTER SAW SHARPENER Gender Identity Not on file Sexual Orientation Not on file documented as of this encounter Plan of Treatment Not on file documented as of this encounter Visit Diagnoses Not on filedocumented in this encounter Care Teams Chief Of Staff Relationship Specialty Start Date End Date Chance Medellin MD [address] [address] PCP - General Internal Medicine 04/28/16 documented as of this encounter
--- OUTSIDE RECORDS SUMMARY | 2024-08-29 12:06 | XMS_ITS | Encounter Summary ---
Author Organization [facility] Address [address] [place] [address] Care Team Providers Care Fruit Farmer Name Role Phone Chnace Medellin MD Primary Care Provider [phone] Encounter Details Date Type Department Care Team (Late st Contact Info) Description 11/22/2001 Outpatient Historical [facility] Internal Medicine [facility] [address] [facility] [address] [place] [address] Niesha Arevalo MD [address] [place] [address] Social History Tobacco Use Types Packs/Day Years Used Date Smoking Tobacco: Never Assessed Comments Unknown Sex and Gender Information Value Date Recorded Sex Assigned at Not on file Legal Sex Female 4:22 AM CRIB CLERK Gender Identity Not on file Sexual Orientation Not on file documented as of this encounter Plan of Treatment Not on file documented as of this encounter Visit Diagnoses Not on filedocumented in this encounter Care Teams Fruit Farmer Relationship Specialty Start Date End Date Chance Medellin MD [address] [facility] [address] [place] [phone] PCP - General Internal Medicine 04/28/16 documented as of this encounter
--- OUTSIDE RECORDS SUMMARY | 2024-08-29 12:06 | XMS_ITS | Encounter Summary ---
Author Organization [facility] Address [address] [place] [address] Care Team Providers Care Ophthalmic Surgical Assistant Name Role Phone Chance Medellin MD Primary Care Provider [phone] Encounter Details Date Type Department Care Team (Late st Contact Info) Description 10/07/2001 Outpatient Historical [facility] Internal Medicine [facility] [address] [place] [address] Niesha Arevalo MD [address] [place] [address] Social History Tobacco Use Types Packs/Day Years Used Date Smoking Tobacco: Never Assessed Comments Unknown Sex and Gender Information Value Date Recorded Sex Assigned at Not on file Legal Sex Female 4:22 AM TEACHER HOME THERAPY Gender Identity Not on file Sexual Orientation Not on file documented as of this encounter Plan of Treatment Not on file documented as of this encounter Visit Diagnoses Not on filedocumented in this encounter Care Teams Ophthalmic Surgical Assistant Relationship Specialty Start Date End Date Chance Medellin MD [address] [facility] [address] [place] [phone] PCP - General Internal Medicine 04/28/16 documented as of this encounter
--- OUTSIDE RECORDS SUMMARY | 2024-08-29 12:06 | XMS_ITS | Encounter Summary ---
Author Organization [facility] Address [address] [place] [address] Care Team Providers Care Patient Consumer Marketer Name Role Phone Chance Medellin MD Primary Care Provider [phone] Encounter Details Date Type Department Care Team (Late st Contact Info) Description 10/14/1999 Outpatient Historical [facility] Internal Medicine [facility] [address] [facility] [address] [place] [address] Niesha Arevalo MD [address] [place] [address] Social History Tobacco Use Types Packs/Day Years Used Date Smoking Tobacco: Never Assessed Comments Unknown Sex and Gender Information Value Date Recorded Sex Assigned at Not on file Legal Sex Female 4:22 AM HOOD FITTER Gender Identity Not on file Sexual Orientation Not on file documented as of this encounter Plan of Treatment Not on file documented as of this encounter Visit Diagnoses Not on filedocumented in this encounter Care Teams Patient Consumer Marketer Relationship Specialty Start Date End Date Chance Medellin MD [address] [facility] [address] [place] [address] PCP - General Internal Medicine 04/28/16 documented as of this encounter
--- OUTSIDE RECORDS SUMMARY | 2024-08-29 12:06 | XMS_ITS | Encounter Summary ---
Author Organization [facility] Address [address] [facility] Attn: Epic Prelude ADT [place] [address] Care Team Providers Care Lan Engineer Name Role Phone Chance Medellin MD Primary Care Provider [phone] Encounter Details Date Type Department Care Team (Latest Contact Info) Description 06/11/2007 Orders Only Nina Contreras MD Social History Tobacco Use Types Packs/Day Years Used Date Smoking Tobacco: Never Assessed Comments Unknown Sex and Gender Information Value Date Recorded Sex Assigned at Not on file Legal Sex Female 4:22 AM BEARING MAKER Gender Identity Not on file Sexual Orientation Not on file documented as of this encounter Plan of Treatment Not on file documented as of this encounter Visit Diagnoses Not on filedocumented in this encounter Care Teams Lan Engineer Relationship Specialty Start Date End Date Chance Medellin MD [address] [address] PCP - General Internal Medicine 04/28/16 documented as of this encounter
--- OUTSIDE RECORDS SUMMARY | 2024-08-29 12:06 | XMS_ITS | Encounter Summary ---
Author Organization [facility] Address [address] [place] [address] Care Team Providers Care Patient Information Coordinator Name Role Phone Chance Medellin MD Primary Care Provider [phone] Encounter Details Date Type Department Care Team (Late st Contact Info) Description 09/23/2001 Outpatient Historical [facility] Internal Medicine [facility] [address] [facility] [address] [place] [address] Niesha Arevalo MD [address] [place] [address] Social History Tobacco Use Types Packs/Day Years Used Date Smoking Tobacco: Never Assessed Comments Unknown Sex and Gender Information Value Date Recorded Sex Assigned at Not on file Legal Sex Female 4:22 AM RIBBON BLOCKMAKER Gender Identity Not on file Sexual Orientation Not on file documented as of this encounter Plan of Treatment Not on file documented as of this encounter Visit Diagnoses Not on filedocumented in this encounter Care Teams Patient Information Coordinator Relationship Specialty Start Date End Date Chance Medellin MD [address] [facility] [address] [place] [phone] PCP - General Internal Medicine 04/28/16 documented as of this encounter
--- OUTSIDE RECORDS SUMMARY | 2024-08-29 12:06 | XMS_ITS | Encounter Summary ---
Author Organization [facility] Address [address] [place] [address] Care Team Providers Care Lift Truck Operator Name Role Phone Chance Medellin MD Primary Care Provider [phone] Encounter Details Date Type Department Care Team (Late st Contact Info) Description 07/04/1999 Outpatient Historical [facility] Internal Medicine [facility] [address] [facility] [address] [place] [address] Niesha Arevalo MD [address] [place] [address] Social History Tobacco Use Types Packs/Day Years Used Date Smoking Tobacco: Never Assessed Comments Unknown Sex and Gender Information Value Date Recorded Sex Assigned at Not on file Legal Sex Female 4:22 AM LONGWALL SHEARER OPERATOR Gender Identity Not on file Sexual Orientation Not on file documented as of this encounter Plan of Treatment Not on file documented as of this encounter Visit Diagnoses Not on filedocumented in this encounter Care Teams Lift Truck Operator Relationship Specialty Start Date End Date Chance Medellin MD [address] [facility] [address] [place] [phone] PCP - General Internal Medicine 04/28/16 documented as of this encounter
--- OUTSIDE RECORDS SUMMARY | 2024-08-29 12:06 | XMS_ITS | Encounter Summary ---
Author Organization [facility] Address [address] [place] [address] Care Team Providers Care Alarm Operator Name Role Phone Chance Medellin MD Primary Care Provider [phone] Encounter Details Date Type Department Care Team (Late st Contact Info) Description 09/16/1998 Outpatient Historical [facility] Internal Medicine [facility] [address] [facility] [address] [place] [address] Niesha Arevalo MD [address] [place] [address] Social History Tobacco Use Types Packs/Day Years Used Date Smoking Tobacco: Never Assessed Comments Unknown Sex and Gender Information Value Date Recorded Sex Assigned at Not on file Legal Sex Female 4:22 AM CREW TEAM MEMBER Gender Identity Not on file Sexual Orientation Not on file documented as of this encounter Plan of Treatment Not on file documented as of this encounter Visit Diagnoses Not on filedocumented in this encounter Care Teams Alarm Operator Relationship Specialty Start Date End Date Chance Medellin MD [address] [facility] [address] [place] [address] PCP - General Internal Medicine 04/28/16 documented as of this encounter
--- OUTSIDE RECORDS SUMMARY | 2024-08-29 12:06 | XMS_ITS | Encounter Summary ---
Author Organization [facility] Address [address] [place] [address] Care Team Providers Care Firestopper Technician Name Role Phone Chance Medellin MD Primary Care Provider Encounter Details Date Type Department Care Team (Late st Contact Info) Description 07/13/1999 Outpatient Historical [facility] Internal Medicine [facility] [address] [facility] [address] [place] [address] Niesha Arevalo MD [address] [place] [address] Social History Tobacco Use Types Packs/Day Years Used Date Smoking Tobacco: Never Assessed Comments Unknown Sex and Gender Information Value Date Recorded Sex Assigned at Not on file Legal Sex Female 4:22 AM LAB SUPPORT TECH Gender Identity Not on file Sexual Orientation Not on file documented as of this encounter Plan of Treatment Not on file documented as of this encounter Visit Diagnoses Not on filedocumented in this encounter Care Teams Firestopper Technician Relationship Specialty Start Date End Date Chance Medellin MD [address] [facility] [address] [place] [address] PCP - General Internal Medicine 04/28/16 documented as of this encounter
--- OUTSIDE RECORDS SUMMARY | 2024-08-29 12:06 | XMS_ITS | Encounter Summary ---
Author Organization [facility] Address [address] [place] [address] Care Team Providers Care Miller Head Name Role Phone Chance Medellin MD Primary Care Provider [phone] Encounter Details Date Type Department Care Team (Late st Contact Info) Description 04/17/2007 Outpatient Historical [facility] [address] [facility] [address] Nohemy Benitez MD [address] [facility] [address] [place] [address] Social History Tobacco Use Types Packs/Day Years Used Date Smoking Tobacco: Never Assessed Comments Unknown Sex and Gender Information Value Date Recorded Sex Assigned at Not on file Legal Sex Female 4:22 AM LEAVE MANAGER Gender Identity Not on file Sexual Orientation Not on file documented as of this encounter Plan of Treatment Not on file documented as of this encounter Visit Diagnoses Not on filedocumented in this encounter Care Teams Miller Head Relationship Specialty Start Date End Date Chance Medellin MD [address] [facility] [address] [place] [address] PCP - General Internal Medicine 04/28/16 documented as of this encounter
--- OUTSIDE RECORDS SUMMARY | 2024-08-29 12:06 | XMS_ITS | Encounter Summary ---
Author Organization [facility] Address [address] [place] [address] Care Team Providers Care Surface Grinding Machine Hand Name Role Phone Chance Medellin MD Primary Care Provider [phone] Encounter Details Date Type Department Care Team (Latest Contact Info) Description 01/17/2007 Outpatient Historical [facility] Internal Medicine [facility] [place] [facility] [address] [facility] [address] [address] Nina Contreras MD Essential Hypertension, Malignant (Primary Dx) Social History Tobacco Use Types Packs/Day Years Used Date Smoking Tobacco: Never Assessed Comments Unknown Sex and Gender Information Value Date Recorded Sex Assigned at Not on file 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 Gender Identity Not on file Sexual Orientation Not on file documented as of this encounter Plan of Treatment Not on file documented as of this encounter Procedures Procedure Name Priority Date/Time Associated Diagnosis Comments VITAMIN B12 LEVEL Routine 01/17/2007 11: 35 AM CDT LIPID PANEL Routine 01/17/2007 11:35 AM CDT BASIC METABOLIC PANEL Routine 01/17/2007 11:35 AM CDT documented in this encounter Results * VITAMIN B12 (01/17/2007 11:35 AM CDT) VITAMIN B12 353 211 - 946 pg/mL INTERFACE SYSTEM Comment: It has been reported that between 5 to 10% of patients with values between 200 and 400 pg/mL may experience neuropsychiatric and hematologic abnormalities due to occult B12 deficiency. Less than 1% of patients with values above 400 pg/mL will have symptoms. 01/17/2007 11:3 5 AM CDT Nina Contreras MD CHEMISTRY ORDERABLES Edited Performing Organization Address [facility] de Phone Number INTERFACE SYSTEM Refer to clinic/hospital department * (ABNORMAL) BASIC METABOLIC PANEL (01/17/2007 11:35 AM CDT) GLUCOSE 102(H) 65 - 99 mg/dL INTERFACE SYSTEM CREATININE 0.97(H) 0.51 - 0.95 mg/dL INTERFACE SYSTEM CALCIUM 8.9 8.4 - 10.2 mg/dL INTERFACE SYSTEM BUN 13 6 - 20 mg/dL INTERFACE SYSTEM SODIUM 138 135 - 145 mmol/L INTERFACE SYSTEM POTASSIUM 4.1 3.5 - 4.9 mmol/L INTERFACE SYSTEM CHLORIDE 103 96 - 108 mmol/L INTERFACE SYSTEM CO2 28 22 - 30 mmol/L INTERFACE SYSTEM GFR, >60 >=60 mL/min/1. 7 sq meter INTERFACE SYSTEM GFR >60 >=60 mL/min/1. 7 sq meter INTERFACE SYSTEM Comment: Estimated GFR rate interpretative information for both Americans and non- Americans is available on the [facility] Intran[facility] at: [email or web address] [email or web address] north [email or web address] Select: Lab Policies and Procedures Select: Reference Ranges - GFR 01/17/2007 11:3 5 AM CDT Result [facility] Nina Contreras MD CHEMISTRY ORDERABLES Edited Performing Organization Address [facility] de Phone Number INTERFACE SYSTEM Refer to clinic/hospital department * (ABNORMAL) LIPID PANEL (01/17/2007 11:35 AM CDT) CHOLESTEROL 209(H) 100 - 199 mg/dL INTERFACE SYSTEM TRIGLYCERIDE 159(H) 10 - 149 mg/dL INTERFACE SYSTEM HDL 57 40 - 59 mg/dL INTERFACE SYSTEM CHOL/HDL RATIO 3.7 2.0 - 5.0 INTER FACE SYSTEM LDL CALCULATED 120(H) <=99 mg/dL INTERFACE SYSTEM LIPID PANEL COMMENT See Below INTERFACE SYSTEM Comment: The adult ATP and pediatric NCEP classifications for lipids are available on the [facility]an[facility] at: [email or web address] [email or web address] north fulton [email or web address]/[email or web address] Select: Lab Policies and Procedures Select: Reference Ranges - Lipids 01/17/2007 11:3 5 AM CDT us Nina Contreras MD CHEMISTRY ORDERABLES Edited INTERFACE SYSTEM Refer to clinic/hospital department documented in this encounter Visit Diagnoses Diagnosis Essential hypertension, malignant- Primary documented in this encounter Care Teams Surface Grinding Machine Hand Relationship Specialty Start Date End Date Chance Medellin MD [address] [address] PCP - General Internal Medicine 04/28/16 documented as of this encounter
--- OUTSIDE RECORDS SUMMARY | 2024-08-29 12:06 | XMS_ITS | Encounter Summary ---
Author Organization [facility] Address [address] [place] [address] Care Team Providers Care Vascular Technologist Name Role Phone Chance Medellin MD Primary Care Provider [phone] Encounter Details Date Type Department Care Team (Late st Contact Info) Description 06/11/2007 Outpatient Historical [facility] Internal Medicine Medical [facility] [address] [facility] [address] [address] Nina Contreras MD Social History Tobacco Use Types Packs/Day Years Used Date Smoking Tobacco: Never Assessed Comments Unknown Sex and Gender Information Value Date Recorded Sex Assigned at Not on file 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
--- OUTSIDE RECORDS SUMMARY | 2024-08-29 12:06 | XMS_ITS | Encounter Summary ---
Author Organization [facility] Address [address] [place] [address] Care Team Providers Care Industrial Relations Officer Name Role Phone Chance Medellin MD Primary Care Provider [phone] Encounter Details Date Type Department Care Team (Late st Contact Info) Description 07/18/1999 Outpatient Historical [facility] Internal Medicine [facility] [address] [facility] [address] [place] [address] Niesha Arevalo MD [address] [place] [address] Social History Tobacco Use Types Packs/Day Years Used Date Smoking Tobacco: Never Assessed Comments Unknown Sex and Gender Information Value Date Recorded Sex Assigned at Not on file 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
--- OUTSIDE RECORDS SUMMARY | 2024-08-29 12:06 | XMS_ITS | Encounter Summary ---
Author Organization 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
--- OUTSIDE RECORDS SUMMARY | 2024-08-29 12:06 | XMS_ITS | Encounter Summary ---
Author Organization [facility] Address [address] [place] [address] Care Team Providers Care Special Police Officer Name Role Phone Chance Medellin MD Primary Care Provider [phone] Encounter Details Date Type Department Care Team (Late st Contact Info) Description 09/30/2001 Outpatient Historical [facility] Internal Medicine [facility] [address] [facility] [address] [place] [address] Niesha Arevalo MD [address] [place] [address] Social History Tobacco Use Types Packs/Day Years Used Date Smoking Tobacco: Never Assessed Comments Unknown Sex and Gender Information Value Date Recorded Sex Assigned at Not on file 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
--- OUTSIDE RECORDS SUMMARY | 2024-08-29 12:06 | XMS_ITS | Encounter Summary ---
Author Organization [facility] Address [address] [place] [address] Care Team Providers Care Health Physics Technician Name Role Phone Chance Medellin MD Primary Care Provider [phone] Encounter Details Date Type Department Care Team (Late st Contact Info) Description 09/26/2007 Outpatient Historical [facility] Primary Care - [address] [place] [address] Franklyn Tolbert MD [address] [facility] [address] [address] Social History Tobacco Use Types Packs/Day Years Used Date Smoking Tobacco: Never Assessed Comments Unknown Sex and Gender Information Value Date Recorded Sex Assigned at Not on file 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
--- OUTSIDE RECORDS SUMMARY | 2024-08-29 12:06 | XMS_ITS | Encounter Summary ---
Author Organization [facility] Address [address] [place] [address] Care Team Providers Care Vessel Master Name Role Phone Chance Medellin MD Primary Care Provider [phone] Encounter Details Date Type Department Care Team (Late st Contact Info) Description 12/27/2001 Outpatient Historical [facility] Internal Medicine [facility] [address] [facility] [address] [place] [address] Niesha Arevalo MD [address] [place] [address] Social History Tobacco Use Types Packs/Day Years Used Date Smoking Tobacco: Never Assessed Comments Unknown Sex and Gender Information Value Date Recorded Sex Assigned at Not on file 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
--- OUTSIDE RECORDS SUMMARY | 2024-08-29 12:06 | XMS_ITS | Encounter Summary ---
Author Organization [facility] Address [address] [place] [address] Care Team Providers Care Nursing Home Assistant Name Role Phone Chance Medellin MD Primary Care Provider [phone] Encounter Details Date Type Department Care Team (Late st Contact Info) Description 06/20/1999 Outpatient Historical [facility] Internal Medicine [facility] [address] [facility] [address] [place] [address] Niesha Arevalo MD [address] [place] [address] Social History Tobacco Use Types Packs/Day Years Used Date Smoking Tobacco: Never Assessed Comments Unknown Sex and Gender Information Value Date Recorded Sex Assigned at Not on file 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
--- OUTSIDE RECORDS SUMMARY | 2024-08-29 12:06 | XMS_ITS | Encounter Summary ---
Author Organization [facility] Address [address] [place] [address] Care Team Providers Care Plaster Applicator Name Role Phone Chance Medellin MD Primary Care Provider [phone] Encounter Details Date Type Department Care Team (Late st Contact Info) Description 05/13/2007 Outpatient [facility] 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
--- OUTSIDE RECORDS SUMMARY | 2024-08-29 12:06 | XMS_ITS | Encounter Summary ---
Author Organization [facility] Address [address] [place] [address] Care Team Providers Care Oil Burner Repairer Name Role Phone Chance Medellin MD Primary Care Provider [phone] Encounter Details Date Type Department Care Team (Late st Contact Info) Description 04/06/1999 Outpatient Historical [facility] Internal Medicine [facility] [address] 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
--- OUTSIDE RECORDS SUMMARY | 2024-08-29 12:06 | XMS_ITS | Encounter Summary ---
Author Organization [employer] Address 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 [address] [place] [phone] PCP - General Internal Medicine 04/28/16 documented as of this encounter
--- OUTSIDE RECORDS SUMMARY | 2024-08-29 12:06 | XMS_ITS | Encounter Summary ---
Author Organization [facility] Address [address] [place] [address] Care Team Providers Care Green Feed Attendant Name Role Phone Chance Medellin MD Primary Care Provider [phone] Encounter Details Date Type Department Care Team (Late st Contact Info) Description 12/09/1999 Outpatient Historical [facility] Internal Medicine [facility] [address] [facility] [address] [place] [address] Niesha Arevalo MD [address] [place] [address] Social History Tobacco Use Types Packs/Day Years Used Date Smoking Tobacco: Never Assessed Comments Unknown Sex and Gender Information Value Date Recorded Sex Assigned at Not on file Legal Sex Female 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 [address] [place] [phone] PCP - General Internal Medicine 04/28/16 documented as of this encounter
--- OUTSIDE RECORDS SUMMARY | 2024-08-29 12:06 | XMS_ITS | Clinical Summary ---
Author Organization [facility] Address [address] [place] [address] Care Team Providers Care Casino Floor Supervisor Name Role Phone Chance Medellin MD Primary Care Provider [phone] Allergies Active Allergy Reactions Criticality Noted Date Comments Adhesive Tape-Silicones Other (See Comments) Skin comes off Iodinated Contrast Media Hives High 11/05/2007 Metoclopramide Hallucination Low 11/05/2007 Naproxen Swelling Low 11/05/2007 Medications ASPIRIN LOW DOSE 81 mg Oral TbEC 1 Every Day 30.00 0 8 Active Cetirizine (ZYRTEC) 10 mg Capsule Take 1 Cap by mouth daily. Active ranitidine (ZANTAC) 150 mg tabletIndications :Hyperlipidemia Take 1 Tab by mouth 2 times daily. 180 Tab 3 5 Active lovastatin (MEVACOR) 40 mg tabletIndications :Hyperlipidemia Take 1 Tab by mouth daily with supper. 90 Tab 3 5 Active furosemide (LASIX) 40 mg tabletIndications :Essential hypertension, malignant Take 1 Tab by mouth daily. 90 Tab 3 5 Active albuterol sulfate (VENTOLIN HFA) 90 mcg/Actuation inhalerIndication s:Asthma, mild persistent, uncomplicated Take 1 Puff by inhalation every 6 hours as needed for Shortness of Breath. 6.7 Gram 5 5 Active ergocalciferol (VITAMIN D2) 50,000 unit capsuleIndication s:Encounter for long-term (current) use of medications Take 1 capsule once a week x 8 weeks; then have a Vitamin D level drawn at the lab.. 8 Capsule 0 6 Active doxazosin (CARDURA) 2 mg tabletIndications :Essential hypertension, malignant Take 1 Tablet (2 mg) by mouth daily. 30 Tablet 0 6 Active diltiaZEM (DILACOR XR) 240 mg Extended Release capsuleIndication s:Essential hypertension, malignant Take 1 Capsule (240 mg) by mouth 2 times daily. 60 Capsule 0 6 Active enalapril (VASOTEC) 20 mg tabletIndications :Essential hypertension, malignant Take 1 Tablet (20 mg) by mouth 2 times daily. 60 Tablet 0 6 Active cyanocobalamin (VITAMIN B-12) 1,000 mcg Tablet Take 1,000 mcg by mouth daily. Active methylphenidate (METADATE ER) 20 mg Extended Release tabletIndications :Multiple sclerosis (CMS/HCC) Take 1 Tablet (20 mg) by mouth daily. Max Daily Amount: 20 mg 30 Tablet 7 Active methylphenidate (METADATE ER) 20 mg Extended Release tabletIndications :Multiple sclerosis (CMS/HCC) Take 1 Tablet (20 mg) by mouth daily. Max Daily Amount: 20 mg 30 Tablet 7 Active methylphenidate (METADATE ER) 20 mg Extended Release tabletIndications :Multiple sclerosis (CMS/HCC) Take 1 Tablet (20 mg) by mouth daily. Max Daily Amount: 20 mg 30 Tablet 7 Active Active Problems Patient Care Coordination No te Formatting of this note migh t be different from the original. Nohemy Benitez, neurologist Kenyon Morgan, adult nurse practitioner Moy Thomas, genetic coordinator Hussein Mcghee, sap director Brad Adkins, nca certified concierge [facility] coding full review 12/22/2014 ss Problem Noted Date Diagnosed Date Hyperlipidemia 11/11/2009 Fatigue Syndrome 12/01/2008 Overview (12/01/2008): Requires ritalin to function Family history of cardiovascular disease 009 Overview (12/01/2008): Brother had WA in 40s Chronic kidney disease, stage II (mild) 11/05/19 08 Overview (08/05/2014): Had seen Dr. Mcghee but no longer will see him due to differences Memory loss 07/13/2006 Other B-complex deficiencies 07/03/2006 H/O prothrombin mutation 06/22/2006 Overview (11/05/2007): Prothrombin promotor mutation, heterozygous Hypertension 06/13/2004 Overview (12/01/2008): No JUSTYNA US 2003 Nl LV fxn, no my abn echo 2003 No ischemia, LVEF 67% stress 2005 No ischemia, nl LV fxn, ZOE 04/28 Esophageal reflux 06/02/2004 Overview (04/26/2010): EGD 2004 Neurogenic bladder 05/19/2004 Demyelinating disease of sigrid tral nervous system, unspecified 05/19/2004 Asthma 05/19/2004 Overview (04/26/2010): Dr. Kenyon Morgan, DePl Resolved Problems Problem Noted Date Diagnosed Date Resolved Date Unspecified essential hypertension 11/05/2007 12/01/2008 Multiple sclerosis -04/199411/05/2007 04/26/2010 Overview (08/13/2012): Completely & totally disabled 09/02 Lovastatin - 20 mg qd -06/2010 - present Doxazosin - 1 mg qd - 06/2010 - present Aspirin - 09/2007 - present Ritalin sr - 20 mg qd - 12/2004 - present Tegretol - 05/2005 Lasix - 40 mg qd - 01/2004 - present nexium - 40 mg bid - 01/2004 - present Hyperlipidemia 11/05/2007 12/01/2008 Extrinsic asthma, unspecified 11/05/2007 12/01/2008 Shortness of breath 06/11/2007 12/02/19 09 Screening for lipoid disorders 05/06/2007 12/01/2008 Plantar fascial fibromatosis 11/16/2006 04/26/2010 Osteoporosis 01/22/2006 04/26/2010 Urinary tract infection, site not specified 12/29/2005 12/01/2008 Pyelonephritis, unspecified 12/29/2005 12/01/2008 Other nonspecific abnormal s elizabeth enzyme levels 05/11/2005 12/01/2008 Other abnormal blood chemistry 04/18/2005 12/01/2008 Pain in limb 01/11/2005 12/01/2008 Stricture and stenosis of esophagus 06/02/2004 11/11/2010 Mitral valve disorders(424.0) 05/19/2004 12/01/2008 Family history of ischemic heart disease 05/19/2004 12/01/2008 Family history of other condition 05/19/2004 12/01/2008 Immunizations Immunization Administration Dates Next Due (PNEUMOVAX 23)(50 YRS UP) PN EUMOCOCCAL POLYSACCHARIDE (PPV23) 0.5 ML, IM 04/26/2010 Influenza Seasonal Unspecified Formulation IM Influenza Vaccine Split 3+ Yrs IM 04/26/2010 Tetanus Vaccine IM 07/23/1998 Family History Medical History Relation Name Comments Coronary Artery Disease Brother 1 WA 4 0 Aneurysm Brother 2 brain aneu rysm Hypertension Brother 3 hypertensive Other Brother 3 obese Lung Cancer Father Kidney Disease Maternal Aunt Bright's dis ease Dementia Maternal Grandmother Diabetes Mother Heart Failure Mother Hypertension Mother Thyroid Disease Mother Hypertension Sister hypertensive Other Sister obese Thyroid Disease Sister Breast Cancer Neg Hx Relation Name Status Comments Brother 1 Brother 2 Brother 3 Father Maternal Aunt Maternal Grandmother Mother Sister Social History Tobacco Use Types Packs/Day Years Used Date Smoking Tobacco: Never Smokeless Tobacco: Never Alcohol Use Standard Drinks/Week Comments No 0 (1 standard drink = 0.6 oz pur e alcohol) Comments No Sex and Gender Information Value Date Recorded Sex Assigned at Not on file 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 Gender Identity Not on file Sexual Orientation Not on file Last Filed Vital Signs Vital Sign Reading Time Taken Comments Blood Pressure 160/98 12/13/2016 1:22 PM CDT Pulse 82 12/13/2016 1:22 PM CDT Temperature 37.4 C (99.3 F) 12/07/2014 12:20 PM CDT Respiratory Rate 16 12/07/2014 12:20 PM CDT Oxygen Saturation 98% 12/07/2014 12:20 PM CDT Inhaled Oxygen Concentration - - Weight 96.2 kg (212 lb 1.9 oz) 12/13/2016 1:22 P M CDT Height 171.5 cm (5' 7.5 ) 12/13/2016 1:22 PM CDT Body Mass Index 32.73 12/13/2016 1:22 PM CDT Plan of Treatment Health Maintenance Due Date Last Done Comments DTAP/TDAP/TD VACCINES (1 - Tdap) 10/24/1979 FIT-DNA Q 3 years 2005 FIT/FOBT Q 1 year 2005 Flex Sig/CT Colonography Q 5 years 2005 ZOSTER VACCINE (1 of 2) 2010 BREAST CANCER SCREENING 05/16/2012 05/16/20 11, 05/16/2011, 06/06/2010, Additional history exists CERVICAL CANCER SCREENING 07/23/2012 07/23/2009, 07/2006 COLORECTAL SCREENING 02/02/2019 02/02/2009 Colorectal Cancer Screening 02/02/2019 INFLUENZA VACCINE (#1) 2024 07/23/2013, 2009 RSV VACCINE (60+ or ) (1 - 1-dose 75+ series) 10/24/2035 Procedures Procedure Name Priority Date/Time Associated Diagnosis Comments MAMMO DIAGNOSTIC BILATERAL W OR WO CAD Routine 05/16/2011 1:39 PM CDT Breast pain from Last 3 Months or Most Recently Relevant to Health Maintenance Results * MAMMO DIGITAL DIAG BILAT (05/16/2011 1:39 PM CDT) Anatomical Region Laterality Modality Breast Bilateral Mammography 05/16/2011 1:37 PM CDT Narrative 05/18/2011 7:56 AM CDT BILATERAL FULL FIELD DIGITAL DIAGNOSTIC MAMMOGRAM WITH CAD DATE OF EXAM: 05/16/11 HISTORY: The patient complains of bilateral breast pain in the far lateral aspect of each breast near the chest wall. COMPARISON: May 2010 and April 2004 COMPOSITION: Heterogeneously dense which lowers the sensitivity of mammography FINDINGS: The bilateral parenchymal pattern appears stable when compared to the previous exams. No new mass or distortion has developed in either breast. No suspicious microcalcifications are seen. CAD was utilized. OVERALL ASSESSMENT: BI-RADS category 1 - Negative RECOMMENDATION: Clinical followup is recommended for further management of the patient's bilateral breast symptoms. Based on imaging findings, the patient may return for routine screening mammography in April 2012. Procedure Note Hussein Dominguez MD - 05/18/2011 BILATERAL FULL FIELD DIGITAL DIAGNOSTIC MAMMOGRAM WITH CAD DATE OF EXAM: 05/16/11 HISTORY: The patient complains of bilateral breast pain in the far lateral aspect of each breast near the chest wall. COMPARISON: May 2010 and April 2004 COMPOSITION: Heterogeneously dense which lowers the sensitivity of mammography FINDINGS: The bilateral parenchymal pattern appears stable when compared to the previous exams. No new mass or distortion has developed in either breast. No suspicious microcalcifications are seen. CAD was utilized. OVERALL ASSESSMENT: BI-RADS category 1 - Negative RECOMMENDATION: Clinical followup is recommended for further management of the patient's bilateral breast symptoms. Based on imaging findings, the patient may return for routine screening mammography in April 2012. us Nina Contreras MD MAMMO ORDERABLES Final Result from Last 3 Months or Most Recently Relevant to Health Maintenance Care Teams Casino Floor Supervisor Relationship Specialty Start Date End Date Chance Medellin MD [address] [address] PCP - General Internal Medicine 04/28/16
--- OUTSIDE RECORDS SUMMARY | 2024-08-29 12:06 | XMS_ITS | Encounter Summary ---
Author Organization [email or web address] [facility] Address 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
--- OUTSIDE RECORDS SUMMARY | 2024-08-29 12:06 | XMS_ITS | Encounter Summary ---
Author Organization [facility] Address [address] [place] [address] Care Team Providers Care Inspector Chief Name Role Phone Chance Medellin MD Primary Care Provider [phone] Encounter Details Date Type Department Care Team (Late st Contact Info) Description 11/05/2007 Orders Only [facility] Primary Care - [address] [place] [address] Franklyn Tolbert MD [address] [facility] [address] [address] Social History Tobacco Use Types Packs/Day Years Used Date Smoking Tobacco: Never Assessed Comments Unknown Sex and Gender Information Value Date Recorded Sex Assigned at Not on file 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 TOBACCO USE Patient does not currently use tobacco. MEDICATIONS: Medication list current. and pt takes monthly b12 injections CHIEF COMPLAINT Seen as a new patient to get established with the practice. saw dr angela nicolas HISTORY: Lisa is here as a new patient. She used to be seen by Dr. Arevalo. She denies any acute complaints. Lisa has a long, complicated past medical history including; a neurologic disease which wasthought to be an MS variant. She has also been treated for acid reflux and hypertension. Current medications; Enalapril 5 mg's bid. Benicar 20 mg's daily. Generic Lasix 20 mg's daily. Nexium 40 mg's bid. Ritalin SR 20 mg's and Advair. ROS: She has no acute complaints. She has various nasal congestion and asthma concerns. Right now, she is suffering from some musculoskeletal back pain and is going to see her neurologist to discuss further management of this. PAST MEDICAL HISTORY: Includes gallbladder surgery and a kidney infection. FAMILY HISTORY: Mother and father both in their 50's and 60's from cancer or heart disease. SOCIAL HISTORY: The patient is disabled. She is for 16 years and has 2 children at home. She is a non-smoker, non-drinker. She wears her seat belt regularly. PHYSICAL EXAMINATION: This is a pleasant 47 year old white female in no acute distress. The lungs are clear. Heart is regular. Peripheral pulses are strong. Head and neck exam is unremarkable. ASSESSMENT/PLAN: 401.9-HYPERTENSION, UNSPECIFIED ASSESSMENT: Her blood pressure is out of control, but she states that it usually is. She is going to see her rental sales representative later this week and we will let him adjust her medicines. LAB ORDERS: Order number: [id number] Test Ordered: COMPREHENSIVE METABOLIC PANEL & GFR 1112 Order number: [id number] Test Ordered: TSH 1720 Order number: [id number] Test Ordered: URINALYSIS WITH REFLEX CULTURE 2221 340-MULTIPLE SCLEROSIS ASSESSMENT: The patient sees Dr. Benitez on a regular basis for further recommendations. 272.4-HYPERLIPIDEMIA ASSESSMENT: We will check her labs today and make further recommendations. LAB ORDERS: Order number: [id number] Test Ordered: LIPID PANEL 1078 493.00-EXTRINSIC ASTHMA ASSESSMENT: It sounds like Advair has been working pretty well for her and she will continue on that. MEDICATIONS: ADVAIR DISKUS INHALATION MISCELLANEOUS 250-50 MCG/DOSE DISKS, 1 puff bid, 1 Dispensed, 11 Fills, status: CONTINUED, 11/05/2007. 585.2-CHRONIC KIDNEY DISEASE STAGE II MILD ASSESSMENT: Will continue to monitor her kidneys with blood work every 4 months or so. HEALTH MAINTENANCE: LAST BREAST EXAM DATE: 04-28. LAST PAP DATE: 04-28. PAP SMEAR PROVIDER: hamzah. LAST DATE PELVIC EXAM: 04-28. LAST MAMMOGRAM DATE: 2 yrs. LAST DATE HORMONE REPLACE DISCUSSED: neg. DISCUSSED SMOKING: neg. LAST TD: neg SEXUAL ACTIVITY DISCUSSED: pos. SUBSTANCE ABUSE DISCUSSED: neg. INJURY PREVENTION DISCUSSED: pos. DIET AND EXERCISE DISCUSSED: neg. ADVANCED DIRECTIVES DISCUSSED: neg. LAST DATE COLONOSCOPY: 3 yrs ago. LAST DATE FOBT: yes. LAST BONE DENSITY DATE: 1 -2 yrs ago. DIABETIC EYE EXAM: na. DIABETIC FOOT EXAM: na LAST FLU VACCINE:neg LAST PNEUMOCOCCAL:neg RETURN VISIT : Patient instructed to return in 3 months, to 4 months. Electronically Signed by: Franklyn Tolbert MD on Thursday, November 08, 2007 documented in this encounter Plan of Treatment Not on file documented as of this encounter Visit Diagnoses Not on filedocumented in this encounter Care Teams Inspector Chief Relationship Specialty Start Date End Date Chance Medellin MD [address] [address] PCP - General Internal Medicine 04/28/16 documented as of this encounter
--- OUTSIDE RECORDS SUMMARY | 2024-08-29 12:06 | XMS_ITS | Encounter Summary ---
Author Organization [facility] Address [address] [place] [address] Care Team Providers Care Specialty Trimmer Name Role Phone Chance Medellin MD Primary Care Provider [phone] Encounter Details Date Type Department Care Team (Late st Contact Info) Description 08/19/1998 Outpatient Historical [facility] Internal Medicine [facility] [address] [facility] [address] [place] [address] Niesha Arevalo MD [address] [place] [address] Social History Tobacco Use Types Packs/Day Years Used Date Smoking Tobacco: Never Assessed Comments Unknown Sex and Gender Information Value Date Recorded Sex Assigned at Not on file 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
--- OUTSIDE RECORDS SUMMARY | 2024-08-29 12:06 | XMS_ITS | Encounter Summary ---
Author Organization [facility] Address [address] [place] [address] Care Team Providers Care Virtual Recruiter Name Role Phone Chance Medellin MD Primary Care Provider [phone] Encounter Details Date Type Department Care Team (Late st Contact Info) Description 07/06/1999 Outpatient Historical [facility] Internal Medicine [facility] [address] 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
--- OUTSIDE RECORDS SUMMARY | 2024-08-29 12:06 | XMS_ITS | Encounter Summary ---
Author Organization [facility] Address [address] [place] [address] Care Team Providers Care Food Preparer Name Role Phone Chance Medellin MD Primary Care Provider [phone] Encounter Details Date Type Department Care Team (Late st Contact Info) Description 06/01/1999 Outpatient Historical [facility] Internal Medicine 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
--- OUTSIDE RECORDS SUMMARY | 2024-08-29 12:06 | XMS_ITS | Encounter Summary ---
Author Organization [facility] Address [address] [place] [address] Care Team Providers Care Furniture Repairer Name Role Phone Chance Medellin MD Primary Care Provider [phone] Encounter Details Date Type Department Care Team (Late st Contact Info) Description 11/08/2001 Outpatient Historical [facility] Internal Medicine [facility] [address] [facility] [address] [place] [address] Niesha Arevalo MD [address] [place] [address] Social History Tobacco Use Types Packs/Day Years Used Date Smoking Tobacco: Never Assessed Comments Unknown Sex and Gender Information Value Date Recorded Sex Assigned at Not on file Legal Sex Female 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
--- OUTSIDE RECORDS SUMMARY | 2024-08-29 12:06 | XMS_ITS | Encounter Summary ---
Author Organization [employer] [facility] Address [address] [place] [address] Care Team Providers Care Fiber Technologist Name Role Phone Chance Medellin MD Primary Care Provider [phone] Encounter Details Date Type Department Care Team (Late st Contact Info) Description 11/05/2007 Outpatient Historical [facility] [address] [address] Yarely Perez, [facility] [address] 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
--- OUTSIDE RECORDS SUMMARY | 2024-08-29 12:06 | XMS_ITS | Encounter Summary ---
Author Organization [facility] Address [address] [place] [address] Care Team Providers Care Foreign Service Teacher Name Role Phone Chance Medellin MD Primary Care Provider [phone] Encounter Details Date Type Department Care Team (Late st Contact Info) Description 07/27/1999 Outpatient Historical [facility] Internal Medicine [facility] [address] [facility] [address] [place] [address] Niesha Arevalo MD [address] [place] [address] Social History Tobacco Use Types Packs/Day Years Used Date Smoking Tobacco: Never Assessed Comments Unknown Sex and Gender Information Value Date Recorded Sex Assigned at Not on file 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
--- OUTSIDE RECORDS SUMMARY | 2024-08-29 12:06 | XMS_ITS | Encounter Summary ---
Author Organization [facility] Address [address] [place] [address] Care Team Providers Care Kiln Firer Name Role Phone Chance Medellin MD Primary Care Provider [phone] Encounter Details Date Type Department Care Team (Late st Contact Info) Description 08/17/1999 Outpatient Historical [facility] Internal Medicine [facility] [address] 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
--- OUTSIDE RECORDS SUMMARY | 2024-08-29 12:06 | XMS_ITS | Encounter Summary ---
Author Organization [facility] Address [address] [place] [address] Care Team Providers Care Shipping Helper Name Role Phone Chance Medellin MD Primary Care Provider [phone] Encounter Details Date Type Department Care Team (Late st Contact Info) Description 01/04/1999 Outpatient Historical [facility] Internal Medicine [facility] [address] [facility] [address] [place] [address] Niesha Arevalo MD [address] [place] [address] Social History Tobacco Use Types Packs/Day Years Used Date Smoking Tobacco: Never Assessed Comments Unknown Sex and Gender Information Value Date Recorded Sex Assigned at Not on file 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
--- OUTSIDE RECORDS SUMMARY | 2024-08-29 12:06 | XMS_ITS | Encounter Summary ---
Author Organization [facility] Address [address] [place] [address] Care Team Providers Care Cabin Outfitter Name Role Phone Chance Medellin MD Primary Care Provider [phone] Encounter Details Date Type Department Care Team (Latest Contact Info) Description 05/07/2007 Outpatient Historical [facility] Internal Medicine [facility] [place] [facility] [address] [address] Nina Contreras MD Screening for Lipoid Disorders (Primary Dx) Social History Tobacco Use Types Packs/Day Years Used Date Smoking Tobacco: Never Assessed Comments Unknown Sex and Gender Information Value Date Recorded Sex Assigned at Not on file Legal 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 Female 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 Gender Identity Not on file Sexual Orientation Not on file documented as of this encounter Plan of Treatment Not on file documented as of this encounter Procedures Procedure Name Priority Date/Time Associated Diagnosis Comments CBC WITH DIFFERENTIAL Routine 05/07/2007 11:38 AM CDT CBC WITH DIFFERENTIAL Routine 05/07/2007 11:38 AM CDT URINALYSIS W/REFLEX MICROSCOPIC Routine 05/07/2007 11:38 AM CDT BRAIN NATRIURETIC PEPTIDE, BNP OR PROBNP Routine 05/07/2007 11:38 AM CDT VITAMIN B12 LEVEL Routine 05/07/2007 11: 38 AM CDT LIPID PANEL Routine 05/07/2007 11:38 AM CDT BASIC METABOLIC PANEL Routine 05/07/2007 11:38 AM CDT documented in this encounter Results * (ABNORMAL) URINALYSIS (05/07/2007 11:38 AM CDT) COLOR UA Yellow INTERFACE SYSTEM CLARITY UA Clear Clear INTERFACE SYSTEM SPECIFIC GRAVITY UA 1.013 1.001 - 1.035 INTERFACE SYSTEM PH UA 7.0 5.0 - 8.0 INTERFACE SYSTEM LEUKOCYTE ESTERASE UA Trace(A) Negative INTERFACE SYSTEM NITRITE UA Negative Negative INTERFACE SYSTEM PROTEIN UA Negative Negative INTERFACE SYSTEM GLUCOSE UA Negative Negative INTERFACE SYSTEM KETONES UA Negative Negative INTERFACE SYSTEM UROBILINOGEN UA <1 <=1 mg/dL INTE RFACE SYSTEM BILIRUBIN UA Negative Negative INTERFA CE SYSTEM BLOOD UA Negative Negative INTERFACE SYSTEM WBC UA 3 0 - 5 /HPF INTERFACE SYSTEM RBC UA <1 0 - 4 /HPF INTERFACE SYSTEM EPITHELIAL CELLS, URINE 0-2 /HPF INTERFACE SYSTEM 05/07/2007 11:3 8 AM CDT Nina Contreras MD URINE ORDERABLES Edited Performing Organization Address [facility] Phone Number INTERFACE SYSTEM Refer to clinic/hospital department * CBC WITH DIFFERENTIAL (05/07/2007 11:38 AM CDT) NEUTROPHILS 65 45 - 70 % INTERFAC E SYSTEM LYMPHOCYTES 22 16 - 45 % INTERFAC E SYSTEM MONOCYTES 11 3 - 13 % INTERFACE SYSTEM EOSINOPHILS 2 0 - 7 % INTERFAC E SYSTEM BASOPHILS 1 0 - 2 % INTERFACE SYSTEM NEUTROPHIL ABSOLUTE 4.93 1.90 - 7.00 K/uL INTERFACE SYSTEM LYMPHOCYTE ABSOLUTE 1.70 0.70 - 4.50 K/uL INTERFACE SYSTEM MONOCYTE ABSOLUTE 0.80 0.10 - 1.30 K/uL INTERFACE SYSTEM EOSINOPHIL ABSOLUTE 0.14 0.00 - 0.70 K/uL INTERFACE SYSTEM BASOPHILS ABSOLUTE 0.06 0.00 - 0.20 K/uL INTERFACE SYSTEM 05/07/2007 11:3 8 AM CDT Nina Contreras MD HEMATOLOGY ORDERABLES Edited Performing Organization Address [facility] Phone Number INTERFACE SYSTEM Refer to clinic/hospital department * CBC WITH DIFFERENTIAL (05/07/2007 11:38 AM CDT) WBC 7.6 4.0 - 9.8 K/uL INTERFACE SYSTEM RBC 4.62 3.90 - 4.90 M/uL INTERFACE SYSTEM HEMOGLOBIN 13.5 11.8 - 14.8 g/dL INTERFACE SYSTEM HEMATOCRIT 39.7 35.5 - 44.0 % INTERFACE SYSTEM MCV 85.9 82.0 - 99.0 fL INTERFACE SYSTEM MCH 29.2 27.2 - 32.6 pg INTERFACE SYSTEM MCHC 34.0 31.5 - 35.5 % INTERFACE SYSTEM RDW 12.3 11.5 - 14.5 % INTERFACE SYSTEM RDW-STDEV 38.6 37.1 - 48.7 fL INTERFACE SYSTEM PLATELETS 316 140 - 350 K/uL INTERFACE SYSTEM MPV 10.4 9.3 - 12.4 fL INTERFACE SYSTEM 05/07/2007 11:3 8 AM CDT Nina Contreras MD HEMATOLOGY ORDERABLES Edited Performing Organization Address [facility] de Phone Number INTERFACE SYSTEM Refer to clinic/hospital department * VITAMIN B12 (05/07/2007 11:38 AM CDT) Pathologist [facility] VITAMIN B12 507 211 - 946 pg/mL INTERFACE SYSTEM Comment: It has been reported that between 5 to 10% of patients with values between 200 and 400 pg/mL may experience neuropsychiatric and hematologic abnormalities due to occult B12 deficiency. Less than 1% of patients with values above 400 pg/mL will have symptoms. 05/07/2007 11:3 8 AM CDT Nina Contreras MD CHEMISTRY ORDERABLES Edited Performing Organization Address [facility] Co de Phone Number INTERFACE SYSTEM Refer to clinic/hospital department * (ABNORMAL) BASIC METABOLIC PANEL (05/07/2007 11:38 AM CDT) GLUCOSE 92 65 - 99 mg/dL INTERFACE SYSTEM CREATININE 1.03(H) 0.51 - 0.95 mg/dL INTERFACE SYSTEM CALCIUM 9.5 8.4 - 10.2 mg/dL INTERFACE SYSTEM BUN 10 6 - 20 mg/dL INTERFACE SYSTEM SODIUM 139 135 - 145 mmol/L INTERFACE SYSTEM POTASSIUM 4.2 3.5 - 4.9 mmol/L INTERFACE SYSTEM CHLORIDE 103 96 - 108 mmol/L INTERFACE SYSTEM CO2 28 22 - 30 mmol/L INTERFACE SYSTEM GFR, >60 >=60 mL/min/1. 7 sq meter INTERFACE SYSTEM GFR 58(L) >=60 mL/min/1. 7 sq meter INTERFACE SYSTEM Comment: Estimated GFR rate interpretative information for both Americans and non- Americans is available on the [facility] Intranet at: [email or web address] Select: Lab Policies and Procedures Select: Reference Ranges - GFR 05/07/2007 11:3 8 AM CDT Nina Contreras MD CHEMISTRY ORDERABLES Edited Performing Organization Address [facility] Co de Phone Number INTERFACE SYSTEM Refer to clinic/hospital department * (ABNORMAL) LIPID PANEL (05/07/2007 11:38 AM CDT) CHOLESTEROL 202(H) 100 - 199 mg/dL INTERFACE SYSTEM TRIGLYCERIDE 147 10 - 149 mg/dL INTERFACE SYSTEM HDL 49 40 - 59 mg/dL INTERFACE SYSTEM CHOL/HDL RATIO 4.1 2.0 - 5.0 INTER FACE SYSTEM LDL CALCULATED 124(H) <=99 mg/dL INTERFACE SYSTEM LIPID PANEL COMMENT See Below INTERFACE SYSTEM Comment: The adult ATP and pediatric NCEP classifications for lipids are available on the [facility] Intranet at: [email or web address] Select: Lab Policies and Procedures,Current Select: Lipid Panel Interpretation 05/07/2007 11:3 8 AM CDT us Nina Contreras MD CHEMISTRY ORDERABLES Edited Performing Organization Address City/[facility]/ZIP Co de Phone Number INTERFACE SYSTEM Refer to clinic/hospital department * BRAIN NATRIURETIC PEPTIDE, BNP OR PROBNP (05/07/2007 11:38 AM CDT) PRO-BNP 32 <=124 pg/mL INTERFACE SYSTEM Comment: proBNP Interpretation: Reference values for screening purposes based on aircraft de icer installer's recommendation: Patients less than 75 years: <125 pg/mL Patients 75 years and older: <450 pg/mL Reference values for determination of acute congestive heart failure in dyspneic patients based on PRIDE study (AM J Cardiol 2005;95:948): Patients less than 50 years: <450 pg/mL (Negative predictive value= 99%) Patients 50 years and older: <900 pg/mL (Negative predictive value= 92%) Rule out cutpoint, all ages: <300 pg/mL (Negative predictive value= 99% ) 05/07/2007 11:3 8 AM CDT us Nina Contreras MD CHEMISTRY ORDERABLES Edited INTERFACE SYSTEM Refer to clinic/hospital department documented in this encounter Visit Diagnoses Diagnosis Screening for lipoid disorders- Primary documented in this encounter Care Teams Cabin Outfitter Relationship Specialty Start Date End Date Chance Medellin MD [address] [facility] [address] [place] [address] PCP - General Internal Medicine 04/28/16 documented as of this encounter
--- OUTSIDE RECORDS SUMMARY | 2024-08-29 12:06 | XMS_ITS | Encounter Summary ---
Author Organization [facility] Address [address] [place] [address] Care Team Providers Care Department Of Sociology Chair Name Role Phone Chance Medellin MD Primary Care Provider [phone] Encounter Details Date Type Department Care Team (Late st Contact Info) Description 02/10/2007 Outpatient Historical [facility] Michael Sanders MD [facility] [place] [id number] [place], Authorized P NO ADDRESS ON FILE Painful Respiration (Primary Dx) Social History Tobacco Use Types Packs/Day Years Used Date Smoking Tobacco: Never Assessed Comments Unknown Sex and Gender Information Value Date Recorded Sex Assigned at Not on file 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 Gender Identity Not on file Sexual Orientation Not on file documented as of this encounter Plan of Treatment Not on file documented as of this encounter Procedures Procedure Name Priority Date/Time Associated Diagnosis Comments TROPONIN (W/REFLEX CKMB/CK) Routine 02/10/2007 9:02 PM CDT PT AND APTT Routine 02/10/2007 9:02 PM CDT CBC WITH DIFFERENTIAL Routine 02/10/2007 9:02 PM CDT CBC WITH DIFFERENTIAL Routine 02/10/2007 9:02 PM CDT D-DIMER Routine 02/10/2007 9:02 PM CDT COMPREHENSIVE METABOLIC PANEL Routine 02/10/2007 9:02 PM CDT documented in this encounter Results * TROPONIN (W/REFLEX CKMB/CK) (02/10/2007 9:02 PM CDT) Pathologist [facility] TROPONIN T <0.01 <=0.03 ng/mL INTERFACE SYSTEM TROPONIN T INTERP Negative INTERFACE SYSTEM 02/10/2007 9:02 PM CDT Narrative INTERFACE SYSTEM - 02/10/2007 9:29 PM CDT Ordered by an unspecified provider. Historical Provider CHEMISTRY ORDERABLES Edited Performing Organization Address City/[facility] Co de Phone Number INTERFACE SYSTEM Refer to clinic/hospital department * (ABNORMAL) CBC WITH DIFFERENTIAL (02/10/2007 9:02 PM CDT) Pathologist [facility] NEUTROPHIL ABSOLUTE 8.13(H) 1.90 - 7.00 K/uL INTERFACE SYSTEM LYMPHOCYTE ABSOLUTE 1.28 0.70 - 4.50 K/uL INTERFACE SYSTEM MONOCYTE ABSOLUTE 1.18 0.10 - 1.30 K/uL INTERFACE SYSTEM EOSINOPHIL ABSOLUTE 0.11 0.00 - 0.70 K/uL INTERFACE SYSTEM BASOPHILS ABSOLUTE 0.00 0.00 - 0.20 K/uL INTERFACE SYSTEM NEUTROPHILS, SEG 76(H) 45 - 70 % INT ERFACE SYSTEM LYMPHOCYTES 12(L) 16 - 45 % INTERFAC E SYSTEM MONOCYTES 11 3 - 13 % INTERFACE SYSTEM EOSINOPHILS 1 0 - 7 % INTERFAC E SYSTEM BASOPHILS 0 0 - 2 % INTERFACE SYSTEM PLATELET EST. Consistent w/ count Normal INTERFACE SYSTEM ANISOCYTOSIS Slight INTERFA CE SYSTEM POIKILOCYTES Slight INTERFA CE SYSTEM MICROCYTES Slight INTERFACE SYSTEM HYPOCHROMIA Slight INTERFAC E SYSTEM OVALOCYTES Slight INTERFACE SYSTEM 02/10/2007 9:02 PM CDT Narrative INTERFACE SYSTEM - 02/10/2007 9:41 PM CDT Ordered by an unspecified provider. Historical Provider HEMATOLOGY ORDERABLES Edited Performing Organization Address City/[facility]/ZIP Co de Phone Number INTERFACE SYSTEM Refer to clinic/hospital department * (ABNORMAL) CBC WITH DIFFERENTIAL (02/10/2007 9:02 PM CDT) Pathologist [facility] WBC 10.7(H) 4.0 - 9.8 K/uL INTERFACE SYSTEM RBC 4.48 3.90 - 4.90 M/uL INTERFACE SYSTEM HEMOGLOBIN 12.9 11.8 - 14.8 g/dL INTERFACE SYSTEM HEMATOCRIT 37.4 35.5 - 44.0 % INTERFACE SYSTEM MCV 83.5 82.0 - 99.0 fL INTERFACE SYSTEM MCH 28.8 27.2 - 32.6 pg INTERFACE SYSTEM MCHC 34.5 31.5 - 35.5 % INTERFACE SYSTEM RDW 14.0 11.5 - 14.5 % INTERFACE SYSTEM RDW-STDEV 42.1 37.1 - 48.7 fL INTERFACE SYSTEM PLATELETS 354(H) 140 - 350 K/uL INTERFACE SYSTEM MPV 10.6 9.3 - 12.4 fL INTERFACE SYSTEM 02/10/2007 9:02 PM CDT Narrative INTERFACE SYSTEM - 02/10/2007 9:11 PM CDT Ordered by an unspecified provider. Historical Provider HEMATOLOGY ORDERABLES Edited Performing Organization Address City/[facility] de Phone Number INTERFACE SYSTEM Refer to clinic/hospital department * (ABNORMAL) D-DIMER (02/10/2007 9:02 PM CDT) [facility] D-DIMER QUANT 0.52(H) <=0.42 ug/mL FEU INTERFACE SYSTEM Comment: DVT Screen reference range <0.45 ug/mL FEU D. Dimer Interpretation: The reference range is not clearly established in uncomplicated pregnanc ies. Values above the upper limit of the reference range are common from the 31st to 40th week of . High negative predictive values for DVT have been reported with the current methodology, as part of a comprehensive medical examination, including risk stratification. 02/10/2007 9:02 PM CDT Narrative INTERFACE SYSTEM - 02/10/2007 9:31 PM CDT Ordered by an unspecified provider. [facility] Provider HEMATOLOGY ORDERABLES Edited Performing Organization Address City/[facility] Co de Phone Number INTERFACE SYSTEM Refer to clinic/hospital department * PT AND APTT (02/10/2007 9:02 PM CDT) PROTIME 13.8 12.7 - 15.1 Seconds INTERFACE SYSTEM INR 1.0 0.9 - 1.1 INTERFACE SYSTEM Comment: INR Therapeutic Range: Adult: 2.0 - 3.0 for pulmonary embolism or prophylaxis against venous thrombosis or systemic embolization. 2.0 - 3.0 for patients with tissue heart valves. 2.5 - 3.5 for patients with mechanical heart valves or post NE. Pediatric (12 years and under): 1.5 - 3.0 Although the target range in children is not well established , INR values of 1.5 - 3.0 are recommended for most patients. Higher values have been used in children with prosthetic cardiac valves and hereditary clotting disorders. (<3 days) therapeutic ranges have not been established. PTT 30.7 24.4 - 36.4 Seconds INTERFACE SYSTEM Comment: PTT Therapeutic Range: Heparin Level PTT (seconds) <0.10 units/mL <53 0.10 - 0.30 units/mL 53 - 67 0.30 - 0.70 units/mL* 67 - 95* 0.70 - 1.00 units/mL 95 - 116 *corresponds to therapeutic range for unfractionated heparin 02/10/2007 9:02 PM CDT Narrative INTERFACE SYSTEM - 02/10/2007 9:24 PM CDT Ordered by an unspecified provider. us Historical Provider HEMATOLOGY ORDERABLES Edited INTERFACE SYSTEM Refer to clinic/hospital department * (ABNORMAL) COMPREHENSIVE METABOLIC PANEL (02/10/2007 9:02 PM CDT) GLUCOSE 97 65 - 99 mg/dL INTERFACE SYSTEM CREATININE 1.16(H) 0.51 - 0.95 mg/dL INTERFACE SYSTEM CALCIUM 8.9 8.4 - 10.2 mg/dL INTERFACE SYSTEM ALKALINE PHOSPHATASE 96 35 - 104 U/L INTERFACE SYSTEM AST 15 12 - 32 U/L INTERFACE SYSTEM ALT 15 0 - 31 U/L INTERFACE SYSTEM TOTAL PROTEIN 7.4 6.3 - 8.6 g/dL INTERFACE SYSTEM ALBUMIN 4.3 3.4 - 4.8 g/dL INTERFACE SYSTEM BILIRUBIN TOTAL 0.4 0.2 - 1.0 mg/dL INTERFACE SYSTEM BUN 15 6 - 20 mg/dL INTERFACE SYSTEM SODIUM 140 135 - 145 mmol/L INTERFACE SYSTEM POTASSIUM 3.8 3.5 - 4.9 mmol/L INTERFACE SYSTEM CHLORIDE 106 96 - 108 mmol/L INTERFACE SYSTEM CO2 25 22 - 30 mmol/L INTERFACE SYSTEM GFR, >60 >=60 mL/min/1. 7 sq meter INTERFACE SYSTEM GFR 50(L) >=60 mL/min/1. 7 sq meter INTERFACE SYSTEM Comment: Estimated GFR rate interpretative information for both Americans and non- Americans is available on the [facility] Intranet at: [email or web address] new [email or web address] Select: Lab Policies and Procedures Select: Reference Ranges - GFR 02/10/2007 9:02 PM CDT Narrative INTERFACE SYSTEM - 02/10/2007 9:30 PM CDT Ordered by an unspecified provider. us Historical Provider CHEMISTRY ORDERABLES Edited INTERFACE SYSTEM Refer to clinic/hospital department documented in this encounter Visit Diagnoses Diagnosis Painful respiration- Primary documented in this encounter Care Teams Department Of Sociology Chair Relationship Specialty Start Date End Date Chance Medellin MD [address] [address] PCP - General Internal Medicine 04/28/16 documented as of this encounter
--- OUTSIDE RECORDS SUMMARY | 2024-08-29 12:06 | XMS_ITS | Encounter Summary ---
Author Organization [facility] Address [address] [place] [address] Care Team Providers Care Associate Relations Specialist Name Role Phone Chance Medellin MD Primary Care Provider [phone] Encounter Details Date Type Department Care Team (Late st Contact Info) Description 04/13/1999 Outpatient Historical Division of Neurology [address] [facility] [address] Nohemy Benitez MD [address] [facility] [address] [place] [address] Social History Tobacco Use Types Packs/Day Years Used Date Smoking Tobacco: Never Assessed Comments Unknown Sex and Gender Information Value Date Recorded Sex Assigned at Not on file 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
--- OUTSIDE RECORDS SUMMARY | 2024-08-29 12:06 | XMS_ITS | Encounter Summary ---
Author Organization [facility] Address [address] [place] [address] Care Team Providers Care Content Designer Name Role Phone Chance Medellin MD Primary Care Provider [phone] Encounter Details Date Type Department Care Team (Late st Contact Info) Description 05/07/2007 Outpatient Historical [facility] [address] [facility] 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
--- OUTSIDE RECORDS SUMMARY | 2024-08-29 12:07 | XMS_ITS | Encounter Summary ---
Author Organization [employer] Address [address] [place] [address] Care Team Providers Care Mineral Industry Teacher Name Role Phone Chance Medellin MD Primary Care Provider [phone] Encounter Details Date Type Department Care Team (Latest Contact Info) Description 07/03/2005 Outpatient Historical [facility] Brad Graff MD [address] [place] [address] HYPERTENSION NOS (Primary Dx) Social History Tobacco Use Types Packs/Day Years Used Date Smoking Tobacco: Never Assessed Comments Unknown Sex and Gender Information Value Date Recorded Sex Assigned at Not on file Legal 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 Female 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 Gender Identity Not on file Sexual Orientation Not on file documented as of this encounter Plan of Treatment Not on file documented as of this encounter Procedures Procedure Name Priority Date/Time Associated Diagnosis Comments CBC WITH DIFFERENTIAL Routine 07/03/2005 10:49 AM 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 CBC WITH DIFFERENTIAL Routine 07/03/2005 10:49 AM 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 BRAIN NATRIURETIC PEPTIDE, BNP OR PROBNP Routine 07/03/2005 10:49 AM 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 LIPID PANEL Routine 07/03/2005 10:49 AM 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 BASIC METABOLIC PANEL Routine 07/03/2005 10:49 AM 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 documented in this encounter Results * BRAIN NATRIURETIC PEPTIDE, BNP OR PROBNP (07/03/2005 10:49 AM 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) BRAIN NATRIURETIC PEPTIDE 46 pg/mL INTERFACE SYSTEM Comment: BNP Interpretation: < or = 100 pg/mL: Negative Unlikely the patient's symptoms are related to heart failure. >100 pg/mL: Positive The degree of elevation correlates with the severity of heart failure. 07/03/2005 10:4 9 AM 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 Brad Adkins MD CHEMISTRY ORDERABLES Final Resul t Performing Organization Address City/[facility] Phone Number INTERFACE SYSTEM Refer to clinic/hospital department * CBC WITH DIFFERENTIAL (07/03/2005 10:49 AM 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) NEUTROPHILS 60 45 - 70 % INTERFAC E SYSTEM LYMPHOCYTES 26 16 - 45 % INTERFAC E SYSTEM MONOCYTES 11 3 - 13 % INTERFACE SYSTEM EOSINOPHILS 3 0 - 7 % INTERFAC E SYSTEM BASOPHILS 1 0 - 2 % INTERFACE SYSTEM NEUTROPHIL ABSOLUTE 3.92 1.90 - 7.00 K/uL INTERFACE SYSTEM LYMPHOCYTE ABSOLUTE 1.72 0.70 - 4.50 K/uL INTERFACE SYSTEM MONOCYTE ABSOLUTE 0.73 0.10 - 1.30 K/uL INTERFACE SYSTEM EOSINOPHIL ABSOLUTE 0.18 0.00 - 0.70 K/uL INTERFACE SYSTEM BASOPHILS ABSOLUTE 0.04 0.00 - 0.20 K/uL INTERFACE SYSTEM 07/03/2005 10:4 9 AM 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 Brad Adkins MD HEMATOLOGY ORDERABLES Final Resu lt Performing Organization Address [facility] Phone Number INTERFACE SYSTEM Refer to clinic/hospital department * (ABNORMAL) CBC WITH DIFFERENTIAL (07/03/2005 10:49 AM 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) WBC 6.6 4.0 - 9.8 K/uL INTERFACE SYSTEM RBC 4.50 3.90 - 4.90 M/uL INTERFACE SYSTEM HEMOGLOBIN 13.1 11.8 - 14.8 g/dL INTERFACE SYSTEM HEMATOCRIT 39.4 35.5 - 44.0 % INTERFACE SYSTEM MCV 87.6 82.0 - 99.0 fL INTERFACE SYSTEM MCH 29.1 27.2 - 32.6 pg INTERFACE SYSTEM MCHC 33.2 31.5 - 35.5 % INTERFACE SYSTEM RDW 12.2 11.5 - 14.5 % INTERFACE SYSTEM RDW-STDEV 39.0 37.1 - 48.7 fL INTERFACE SYSTEM PLATELETS 352(H) 140 - 350 K/uL INTERFACE SYSTEM MPV 10.3 9.3 - 12.4 fL INTERFACE SYSTEM 07/03/2005 10:4 9 AM 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 us Brad Adkins MD HEMATOLOGY ORDERABLES Final Resu lt Performing Organization Address City/[facility] Phone Number INTERFACE SYSTEM Refer to clinic/hospital department * (ABNORMAL) BASIC METABOLIC PANEL (07/03/2005 10:49 AM 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) GLUCOSE 99 65 - 109 mg/dL INTERFACE SYSTEM CREATININE 1.2 0.4 - 1.2 mg/dL INTERFACE SYSTEM CALCIUM 9.8 8.6 - 10.2 mg/dL INTERFACE SYSTEM BUN 14 6 - 20 mg/dL INTERFACE SYSTEM SODIUM 141 135 - 145 mmol/L INTERFACE SYSTEM POTASSIUM 4.0 3.5 - 4.9 mmol/L INTERFACE SYSTEM CHLORIDE 103 96 - 108 mmol/L INTERFACE SYSTEM CO2 31(H) 22 - 30 mmol/L INTERFACE SYSTEM 07/03/2005 10:4 9 AM 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 us Brad Adkins MD CHEMISTRY ORDERABLES Final Resul t Performing Organization Address [facility] Phone Number INTERFACE SYSTEM Refer to clinic/hospital department * (ABNORMAL) LIPID PANEL (07/03/2005 10:49 AM 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) LIPID PANEL COMMENT See below INTERFACE SYSTEM Comment: Adult ATP III Classifications: Cholesterol (mg/dL) Triglyceride (mg/dL) Desirable <200 Normal <150 Borderline 200 - 239 Borderline High 150 - 199 High >=240 High 200 - 499 Very High >=500 HDL Cholesterol (mg/dL) LDL (mg/dL) Low (increased risk) <40 Optimal <100 High (reduced risk) >=60 Near or above optimal 100 - 129 Borderline 130 - 159 High 160 - 189 Very High >=190 LDL calculation is not accurate if Triglycerides are greater than 400 mg /dL Pediatric NCEP Classifications: Cholesterol(<20 years),(mg/dL) Triglyceride Desirable <170 Pediatric classification Borderline 170 - 199 not defined. High >=200 HDL (<5 years) LDL (mg/dL) No Reference Range Established Desirable <110 Borderline 110 - 129 High >=130 CHOLESTEROL 222(H) 100 - 199 mg/dL INTERFACE SYSTEM TRIGLYCERIDE 143 10 - 149 mg/dL INTERFACE SYSTEM HDL 50 40 - 59 mg/dL INTERFACE SYSTEM LDL CALCULATED 143(H) <=99 mg/dL INTERFACE SYSTEM CHOL/HDL RATIO 4.4 2.0 - 5.0 INTER FACE SYSTEM Comment:See interpretive dwaine a section for risk classifications. 07/03/2005 10:4 9 AM 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 us Brad Adkins MD CHEMISTRY ORDERABLES Final Resul t INTERFACE SYSTEM Refer to clinic/hospital department documented in this encounter Visit Diagnoses Diagnosis Unspecified essential hypertension- Primary documented in this encounter Care Teams Mineral Industry Teacher Relationship Specialty Start Date End Date Chance Medellin MD [address] [facility] [address] [place] [phone] PCP - General Internal Medicine 04/28/16 documented as of this encounter
--- OUTSIDE RECORDS SUMMARY | 2024-08-29 12:07 | XMS_ITS | Encounter Summary ---
Author Organization [facility] Address [address] [place] [address] Care Team Providers Care Senior Shipping Clerk Name Role Phone Chance Medellin MD Primary Care Provider [phone] Encounter Details Date Type Department Care Team (Late st Contact Info) Description 01/11/2001 Outpatient Historical [facility] Internal Medicine [facility] [address] [facility] [address] [place] [address] Niesha Arevalo MD [address] [place] [address] Social History Tobacco Use Types [...] on filedocumented in this encounter Care Teams Senior Shipping Clerk Relationship Specialty Start Date End Date Chance Medellin MD [address] [facility] [address] [place] [phone] PCP - General Internal Medicine 04/28/16 documented as of this encounter
--- OUTSIDE RECORDS SUMMARY | 2024-08-29 12:07 | XMS_ITS | Encounter Summary ---
Author Organization [facility] Address 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 Gender Identity Not on file Sexual Orientation Not on file documented as of this encounter Plan of Treatment Not on file documented as of this encounter Procedures Procedure Name Priority Date/Time Associated Diagnosis Comments TSH REFLEXIVE Routine 04/13/2005 1:15 PM CDT CBC WITH DIFFERENTIAL Routine 04/13/2005 1:15 PM CDT CBC WITH DIFFERENTIAL Routine 04/13/2005 1:15 PM CDT COMPREHENSIVE METABOLIC PANEL Routine 04/13/2005 1:15 PM CDT documented in this encounter Results * (ABNORMAL) CBC WITH DIFFERENTIAL (04/13/2005 1:15 PM CDT) NEUTROPHIL ABSOLUTE 7.74(H) 1.90 - 7.00 K/uL INTERFACE SYSTEM LYMPHOCYTE ABSOLUTE 2.54 0.70 - 4.50 K/uL INTERFACE SYSTEM MONOCYTE ABSOLUTE 0.21 0.10 - 1.30 K/uL INTERFACE SYSTEM EOSINOPHIL ABSOLUTE 0.00 0.00 - 0.70 K/uL INTERFACE SYSTEM BASOPHILS ABSOLUTE 0.11 0.00 - 0.20 K/uL INTERFACE SYSTEM NEUTROPHILS, SEG 73(H) 45 - 70 % INT ERFACE SYSTEM LYMPHOCYTES 23 16 - 45 % INTERFAC E SYSTEM MONOCYTES 2(L) 3 - 13 % INTERFACE SYSTEM EOSINOPHILS 0 0 - 7 % INTERFAC E SYSTEM BASOPHILS 1 0 - 2 % INTERFACE SYSTEM ATYPICAL LYMPHOCYTE 1 0 - 5 % INTERFACE SYSTEM PLATELET EST. Normal Normal INTERF MARKUS SYSTEM ANISOCYTOSIS Slight INTERFA CE SYSTEM POIKILOCYTES Slight INTERFA CE SYSTEM OVALOCYTES Slight INTERFACE SYSTEM 04/13/2005 1:15 PM CDT Nina Contreras MD HEMATOLOGY ORDERABLES Final R esult Performing Organization Address [facility] de Phone Number INTERFACE SYSTEM Refer to clinic/hospital department * (ABNORMAL) CBC WITH DIFFERENTIAL (04/13/2005 1:15 PM CDT) WBC 10.6(H) 4.0 - 9.8 K/uL INTERFACE SYSTEM RBC 4.30 3.90 - 4.90 M/uL INTERFACE SYSTEM HEMOGLOBIN 12.7 11.8 - 14.8 g/dL INTERFACE SYSTEM HEMATOCRIT 37.3 35.5 - 44.0 % INTERFACE SYSTEM MCV 86.7 82.0 - 99.0 fL INTERFACE SYSTEM MCH 29.5 27.2 - 32.6 pg INTERFACE SYSTEM MCHC 34.0 31.5 - 35.5 % INTERFACE SYSTEM RDW 12.3 11.5 - 14.5 % INTERFACE SYSTEM RDW-STDEV 39.2 37.1 - 48.7 fL INTERFACE SYSTEM PLATELETS 309 140 - 350 K/uL INTERFACE SYSTEM MPV 10.0 9.3 - 12.4 fL INTERFACE SYSTEM 04/13/2005 1:15 PM CDT Nina Contreras MD HEMATOLOGY ORDERABLES Final R esult Performing Organization Address [facility] Co de Phone Number INTERFACE SYSTEM Refer to clinic/hospital department * (ABNORMAL) COMPREHENSIVE METABOLIC PANEL (04/13/2005 1:15 PM CDT) GLUCOSE 112(H) 65 - 109 mg/dL INTERFACE SYSTEM CREATININE 1.3(H) 0.4 - 1.2 mg/dL INTERFACE SYSTEM CALCIUM 9.7 8.6 - 10.2 mg/dL INTERFACE SYSTEM AST 17 12 - 32 U/L INTERFACE SYSTEM ALKALINE PHOSPHATASE 78 35 - 104 U/L INTERFACE SYSTEM BUN 11 6 - 20 mg/dL INTERFACE SYSTEM BILIRUBIN TOTAL 0.8 0.2 - 1.0 mg/dL INTERFACE SYSTEM ALBUMIN 4.5 3.4 - 4.8 g/dL INTERFACE SYSTEM TOTAL PROTEIN 7.4 6.3 - 8.6 g/dL INTERFACE SYSTEM ALT 15 0 - 31 U/L INTERFACE SYSTEM SODIUM 139 135 - 145 mmol/L INTERFACE SYSTEM POTASSIUM 4.0 3.5 - 4.9 mmol/L INTERFACE SYSTEM CHLORIDE 104 96 - 108 mmol/L INTERFACE SYSTEM CO2 28 22 - 30 mmol/L INTERFACE SYSTEM 04/13/2005 1:15 PM CDT us Nina Contreras MD CHEMISTRY ORDERABLES Final Re sult Performing Organization Address City/[facility] de Phone Number INTERFACE SYSTEM Refer to clinic/hospital department * TSH REFLEXIVE (04/13/2005 1:15 PM CDT) TSH 2.73 0.27 - 4.20 uU/mL INTERFACE SYSTEM 04/13/2005 1:15 PM CDT Nina Contreras MD CHEMISTRY ORDERABLES Final Re marielyt Performing Organization Address [facility] Co de Phone Number INTERFACE SYSTEM Refer to clinic/hospital department documented in this encounter Visit Diagnoses Diagnosis Nausea alone- Primary documented in this encounter Care Teams Shop Tech Relationship Specialty Start Date End Date Chance Medellin MD [address] [phone] PCP - General Internal Medicine 04/28/16 documented as of this encounter
--- OUTSIDE RECORDS SUMMARY | 2024-08-29 12:07 | XMS_ITS | Encounter Summary ---
Author Organization [facility] Address [address] [place] [address] Care Team Providers Care Paper Winder Name Role Phone Chance Medellin MD Primary Care Provider [phone] Encounter Details Date Type Department Care Team (Late st Contact Info) Description 12/23/1999 Outpatient Historical [facility] Internal Medicine [facility] [address] [place] [address] Niesha Arevalo MD [address] [place] [address] Social History Tobacco Use Types Packs/Day Years Used Date Smoking Tobacco: Never Assessed Comments Unknown Sex and Gender Information Value Date Recorded Sex Assigned at Not on file Legal 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 [address] [place] [phone] PCP - General Internal Medicine 04/28/16 documented as of this encounter
--- OUTSIDE RECORDS SUMMARY | 2024-08-29 12:07 | XMS_ITS | Encounter Summary ---
Author Organization [employer] Address [address] [place] [address] Care Team Providers Care Walking Dragline Oiler Name Role Phone Chance Medellin MD Primary Care Provider [phone] Encounter Details Date Type Department Care Team (Latest Contact Info) Description 05/05/2008 Outpatient Historical [facility] [address] Franklyn Tolbert MD [address] [facility] [address] [address] Chronic Kidney Disease, Stage II (Mild) Social History Tobacco Use Types Packs/Day Years Used Date Smoking Tobacco: Never Alcohol Use Standard Drinks/Week Comments No 0 (1 standard drink = 0.6 oz pur e alcohol) Comments No Sex and Gender Information Value Date Recorded Sex Assigned at Not on file Legal Sex Female 4:22 AM FIRST COOK Gender Identity Not on file Sexual Orientation Not on file documented as of this encounter Plan of Treatment Not on file documented as of this encounter Visit Diagnoses Diagnosis Chronic kidney disease, stage II (mild) Chronic kidney disease, Stage II (mild) documented in this encounter Care Teams Walking Dragline Oiler Relationship Specialty Start Date End Date Chance Medellin MD [address] [facility] [address] [place] [phone] PCP - General Internal Medicine 04/28/16 documented as of this encounter
--- OUTSIDE RECORDS SUMMARY | 2024-08-29 12:07 | XMS_ITS | Encounter Summary ---
Author Organization [facility] Address [address] [place] [address] Care Team Providers Care Processor Inspector Name Role Phone Chance Medellin MD Primary Care Provider [phone] Encounter Details Date Type Department Care Team (Late st Contact Info) Description 03/15/2001 Outpatient Historical [facility] Internal Medicine [facility] [address] [place] [address] Niesha Arevalo MD [address] [place] [address] Social History Tobacco Use Types Packs/Day Years Used Date Smoking Tobacco: Never Assessed Comments Unknown Sex and Gender Information Value Date Recorded Sex Assigned at Not on file Legal Sex Female 4:22 AM CUFF SETTER Gender Identity Not on file Sexual Orientation Not on file documented as of this encounter Plan of Treatment Not on file documented as of this encounter Visit Diagnoses Not on filedocumented in this encounter Care Teams Processor Inspector Relationship Specialty Start Date End Date Chance Medellin MD [address] [facility] [address] [place] [phone] PCP - General Internal Medicine 04/28/16 documented as of this encounter
--- OUTSIDE RECORDS SUMMARY | 2024-08-29 12:07 | XMS_ITS | Encounter Summary ---
Author Organization [employer] Address [address] [place] [address] Care Team Providers Care Support Staff Name Role Phone Chance Medellin MD Primary Care Provider [phone] Encounter Details Date Type Department Care Team (Late st Contact Info) Description 06/22/2005 Outpatient Historical [facility] 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
--- OUTSIDE RECORDS SUMMARY | 2024-08-29 12:07 | XMS_ITS | Encounter Summary ---
Author Organization [employer] [facility] Address 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
--- OUTSIDE RECORDS SUMMARY | 2024-08-29 12:07 | XMS_ITS | Encounter Summary ---
Author Organization [facility] Address [address] [place] [address] Care Team Providers Care Spot Cleaner Name Role Phone Chance Medellin MD Primary Care Provider [phone] Encounter Details Date Type Department Care Team (Late st Contact Info) Description 02/10/2003 Outpatient Historical [facility] Internal Medicine [facility] [address] [place] [address] Niesha Arevalo MD [address] [place] [address] Social History Tobacco Use Types Packs/Day Years Used Date Smoking Tobacco: Never Assessed Comments Unknown Sex and Gender Information Value Date Recorded Sex Assigned at Not on file Legal Sex Female 4:22 AM ODD PIECE CHECKER Gender Identity Not on file Sexual Orientation Not on file documented as of this encounter Plan of Treatment Not on file documented as of this encounter Visit Diagnoses Not on filedocumented in this encounter Care Teams Spot Cleaner Relationship Specialty Start Date End Date Chance Medellin MD [address] [facility] [address] [place] [phone] PCP - General Internal Medicine 04/28/16 documented as of this encounter
--- OUTSIDE RECORDS SUMMARY | 2024-08-29 12:07 | XMS_ITS | Encounter Summary ---
Author Organization [employer] [facility] Address [address] [place] [address] Care Team Providers Care Safety And Skill Based Pay Manager Name Role Phone Chance Medellin MD Primary Care Provider [phone] Encounter Details Date Type Department Care Team (Latest Contact Info) Description 11/03/2008 Outpatient Historical [facility] [address] Franklyn Tolbert MD [address] [facility] [address] [address] Other and Unspecified Hyperlipidemia Social History Tobacco Use Types Packs/Day Years Used Date Smoking Tobacco: Never Alcohol Use Standard Drinks/Week Comments No 0 (1 standard drink = 0.6 oz pur e alcohol) Comments No Sex and Gender Information Value Date Recorded Sex Assigned at Not on file Legal Sex Female 4:22 AM GAG WRITER Gender Identity Not on file Sexual Orientation Not on file documented as of this encounter Plan of Treatment Not on file documented as of this encounter Visit Diagnoses Diagnosis Other and unspecified hyperlipidemia documented in this encounter Care Teams Safety And Skill Based Pay Manager Relationship Specialty Start Date End Date Chance Medellin MD [address] [facility] [address] [place] [phone] PCP - General Internal Medicine 04/28/16 documented as of this encounter
--- OUTSIDE RECORDS SUMMARY | 2024-08-29 12:07 | XMS_ITS | Encounter Summary ---
Author Organization [facility] Address [address] [place] [address] Care Team Providers Care Manager Site Name Role Phone Chance Medellin MD Primary Care Provider Encounter Details Date Type Department Care Team (Late st Contact Info) Description 11/16/2000 Outpatient Historical [facility] Internal Medicine [facility] [address] [facility] [address] [place] [address] Niesha Arevalo MD [address] [place] [address] Social History Tobacco Use Types Packs/Day Years Used Date Smoking Tobacco: Never Assessed Comments Unknown Sex and Gender Information Value Date Recorded Sex Assigned at Not on file Legal Sex Female 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
--- OUTSIDE RECORDS SUMMARY | 2024-08-29 12:07 | XMS_ITS | Encounter Summary ---
Author Organization [facility] Address [address] [place] [address] Care Team Providers Care Barrel Line Operator Name Role Phone Chance Medellin MD Primary Care Provider [phone] Encounter Details Date Type Department Care Team (Late st Contact Info) Description 03/29/2001 Outpatient Historical [facility] Internal Medicine [facility] [address] [place] [address] Niesha Arevalo MD [address] [place] [address] Social History Tobacco Use Types Packs/Day Years Used Date Smoking Tobacco: Never Assessed Comments Unknown Sex and Gender Information Value Date Recorded Sex Assigned at Not on file 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
--- OUTSIDE RECORDS SUMMARY | 2024-08-29 12:07 | XMS_ITS | Encounter Summary ---
Author Organization [facility] Address [address] [place] [address] Care Team Providers Care Block Hacker Name Role Phone Chance Medellin MD Primary Care Provider [phone] Encounter Details Date Type Department Care Team (Late st Contact Info) Description 04/11/2000 Outpatient Historical [facility] [address] [place] [address] Niesha Arevalo MD [address] [place] [address] Social History Tobacco Use Types Packs/Day Years Used Date Smoking Tobacco: Never Assessed Comments Unknown Sex and Gender Information Value Date Recorded Sex Assigned at Not on file Legal Sex Female 4:22 AM [employer] Gender Identity Not on file Sexual Orientation Not on file documented as of this encounter Plan of Treatment Not on file documented as of this encounter Visit Diagnoses Not on filedocumented in this encounter Care Teams Block Hacker Relationship Specialty Start Date End Date Chance Medellin MD [address] [facility] [address] [place] [phone] PCP - General Internal Medicine 04/28/16 documented as of this encounter
--- OUTSIDE RECORDS SUMMARY | 2024-08-29 12:07 | XMS_ITS | Patient Health Summary ---
Author Organization [facility] Address [address] [place] [address] Care Team Providers Care Head Porter Name Role Phone Nina Contreras MD Primary Care Provider [phone] Hussein Mcghee MD Unavailable [phone] Kenyon Morgan MD Unavailable [phone] Note from [facility],non-owned Affiliates and Associated Physician Practices is amultiple site organization consisting of ambulatory clinics and hospital sitesin [place], [place], [place]. This disclosure is being madepursuant to the Care Everywhere program and may not contain all information available regarding this patient. Last updated 18.[facility] Allergies * Contrast-Iodinated Agents For Ct/Other * Naproxen * Reglan Medications * Be aware that medications may not be up to date on this document. Alwaysverify current medications with the patient. * enalapril (VASOTEC) 20 MG tablet Take 20 mg by mouth 2 times daily. * diltiazem ER (TIAZAC) 240 MG capsule Take 240 mg by mouth 2 times daily. * furosemide (LASIX) 40 MG tablet Take 40 mg by mouth once daily. 40 to 60 mg daily. * aspirin 81 MG tablet Take 81 mg by mouth daily. * methylphenidate ER (RITALIN SR) 20 MG tablet Take 20 mg by mouth every morning. * cyanocobalamin (vitamin B-12) injection Inject into muscle every 30 days. * lovastatin (MEVACOR) 20 MG tablet Take 20 mg by mouth at bedtime. * vitamin D, ergocalciferol, (DRISDOL) 65579 UNIT capsule Take 50,000 Units by mouth every 7 days. * doxazosin (CARDURA) 1 MG tablet Take 1 mg by mouth at bedtime. * levalbuterol (XOPENEX HFA) 45 MCG/ACT inhaler(Started 07/29/2010) Inhale 2 Puffs by mouth every 6 hours. prn 3 refills left * fluticasone-salmeterol (ADVAIR) 250-50 MCG/DOSE inhaler(Started 01/09/2011) Inhale 1 Puff by mouth 2 times daily. 5 refills left * albuterol HFA (PROVENTIL;VENTOLIN;PROAIR) 108 (90 BASE) MCG/ACT inhaler (Started 01/27/2011) Inhale 2 Puffs by mouth every 6 hours as needed. 5 refills left * esomeprazole (NEXIUM) 40 MG capsule(Started 01/27/2011) Take 1 Cap by mouth 2 times daily. 5 refills left Active Problems Problem Noted Date Diagnosed Date MS (multiple sclerosis) 01/27/2011 Snoring 07/29/2010 Sleep disturbance 07/29/2010 Asthma 08/17/2009 GERD (gastroesophageal reflux disease) 0 Hypertension 08/17/2009 Primary hypercoagulable state 08/17/2009 Chronic fatigue 08/17/2009 Esophageal stricture 08/17/2009 Allergic rhinitis 08/17/2009 Immunizations * INFLUENZA A [id number] VACCINE(Given 07/23/2009) * INFLUENZA VACCINE(Given 06/30/2009) Social History Tobacco Use Types Packs/Day Years Used Date Smoking Tobacco: Never Alcohol Use Standard Drinks/Week Comments No 0 (1 standard drink = 0.6 oz pur e alcohol) Sex and Gender Information Value Date Recorded Sex Assigned at Not on file Gender Identity Not on file Sexual Orientation Not on file Last Filed Vital Signs Vital Sign Reading Time Taken Comments Blood Pressure 157/102 01/27/2011 1:12 PM CDT Pulse 88 01/27/2011 1:12 PM CDT Temperature 36.7 C (98.1 F) 01/27/2011 1:12 PM CDT Respiratory Rate 20 01/27/2011 1:12 PM CDT Oxygen Saturation 97% 01/27/2011 1:12 PM CDT Room air Inhaled Oxygen Concentration 21% 01/27/2011 1 :12 PM CDT Room air Weight 97.1 kg (214 lb) 01/27/2011 1:12 PM CDT Height 170.2 cm (5' 7 ) 01/27/2011 1:12 PM CDT Body Mass Index 33.52 01/27/2011 1:12 PM CDT Procedures * XR CHEST 2VW(Performed 07/29/2010) Performed for Vitamin D deficiency, Asthma, GERD (gastroesophageal reflux disease), Chronic fatigue, Esophageal stricture, Allergic rhinitis, Hyperglycemia, Arthralgia, Cough, Shortness of breath * PFT-LAB(Performed 07/29/2010) * COMPLETE PFT W/WO BRONCHODILATOR(Performed 07/29/2010) Performed for Vitamin D deficiency, Asthma, GERD (gastroesophageal reflux disease), Chronic fatigue, Esophageal stricture, Allergic rhinitis, Hyperglycemia, Arthralgia, Cough, Shortness of breath * RHEUMATOID FACTOR BLOOD QUANTITATIVE(Performed 02/07/2010) Performed for Vitamin D Deficiency, Asthma, GERD (Gastroesophageal Reflux Disease), Chronic Fatigue, Esophageal Stricture, Allergic Rhinitis, Hyperglycemia, Arthralgia, Cough, Shortness of Breath * ERYTHROCYTE SEDIMENTATION RATE(Performed 02/07/2010) Performed for Vitamin D Deficiency, Asthma, GERD (Gastroesophageal Reflux Disease), Chronic Fatigue, Esophageal Stricture, Allergic Rhinitis, Hyperglycemia, Arthralgia, Cough, Shortness of Breath * OLIVER W REFLEX DS-DNA+OSEI+SSJ(Performed 02/07/2010) Performed for Vitamin D Deficiency, Asthma, GERD (Gastroesophageal Reflux Disease), Chronic Fatigue, Esophageal Stricture, Allergic Rhinitis, Hyperglycemia, Arthralgia, Cough, Shortness of Breath * HEMOGLOBIN A1C(Performed 02/07/2010) Performed for Vitamin D Deficiency, Asthma, GERD (Gastroesophageal Reflux Disease), Chronic Fatigue, Esophageal Stricture, Allergic Rhinitis, Hyperglycemia, Arthralgia, Cough, Shortness of Breath * BASIC METABOLIC PANEL (CALCIUM TOTAL)(Performed 02/07/2010) Performed for Vitamin D Deficiency, Asthma, GERD (Gastroesophageal Reflux Disease), Chronic Fatigue, Esophageal Stricture, Allergic Rhinitis, Hyperglycemia, Arthralgia, Cough, Shortness of Breath * VITAMIN D 1,25 DIHYDROXY(Performed 02/07/2010) Performed for Vitamin D Deficiency, Asthma, GERD (Gastroesophageal Reflux Disease), Chronic Fatigue, Esophageal Stricture, Allergic Rhinitis, Hyperglycemia, Arthralgia, Cough, Shortness of Breath * VITAMIN D 25-HYDROXY(Performed 07/22/2009) * IGE BLOOD(Performed 07/22/2009) * FUNGAL ANTIBODY PANEL IMMUNODIFFUSION(Performed 07/22/2009) * PNEUMONITIS HYPERSENSITIVE PANEL(Performed 07/22/2009) * CBC W AUTO DIFFERENTIAL(Performed 07/22/2009) * ALLERGEN ZONE 10(Performed 07/22/2009) * BLOOD GASES ART + COOX PANEL(Performed 06/25/2009) Performed for Unspecified Asthma (Hcc) * PFT-LAB(Performed 06/25/2009) * PFT-LAB(Performed 06/25/2009) Performed for Unspecified Asthma (Hcc) Results * XR CHEST PA AND LATERAL (07/29/2010 11:23 AM BIOMEDICAL MANAGER) Anatomical Region Laterality Modality Chest Radiographic An ging 07/29/2010 11:5 1 AM BIOMEDICAL MANAGER Impressions 07/29/2010 11:51 AM BIOMEDICAL MANAGER No acute disease in the chest. Narrative 07/29/2010 11:51 AM BIOMEDICAL MANAGER PA AND LATERAL CHEST INDICATION: Vitamin D deficiency FINDINGS: The lungs are clear. The mediastinal contour and heart size are within normal limits. The pulmonary vascularity is normal. The osseous structures are unremarkable. Procedure Note Delfina Stubbs MD - 07/29/2010 PA AND LATERAL CHEST INDICATION: Vitamin D deficiency FINDINGS: The lungs are clear. The mediastinal contour and heart size are within normal limits. The pulmonary vascularity is normal. The osseous structures are unremarkable. IMPRESSION No acute disease in the chest. Kenyon Morgan MD DIAGNOSTIC IMAGING O RDERABLES * COMPLETE PFT W/WO BRONCHODILATOR (07/29/2010) Kenyon Morgan MD RESPIRATORY THERAPY ORDERABLES * COMPLETE PFT (07/29/2010) 07/29/2010 Narrative 07/29/2010 1:06 PM BIOMEDICAL MANAGER [facility] Pulmonary Function Test [facility] PULMONARY FUNCTION TEST REPORT PATIENT: LUDA PEREZ MR#: [id number] ADMIT DATE: 07/29/2010 DATE OF PROCEDURE: 07/29/2010 : 1960 PHYSICIAN: Kenyon Morgan MD FINDINGS: 1. Baseline spirometry reveals normal expiratory flows. 2. Following administration of bronchodilator, there is no significant change in expiratory flows. 3. Lung volumes are within normal limits. 4. Diffusing capacity is within normal limits. 5. Flow volume loop has a normal configuration. IMPRESSION: Normal pulmonary function with no obstructive or restrictive lung disease. Gas transfer capacity is normal. Compared to the patient's prior PFT from 06/25/2009 there has been an increase in expiratory flows, lung volumes and gas transfer capacity. Overall this is consistent with interval improvement in the patient's normal pulmonary function. MD JUSTYNA Madison/MedRaghavendra #: [id number] Procedure Note Kenyon Morgan MD - 07/29/2010 1:06 PM CST [facility] Pulmonary Function Test [facility] PULMONARY FUNCTION TEST REPORT PATIENT: LUDA PEREZ MR#: [id number] ADMIT DATE: 07/29/2010 DATE OF PROCEDURE: 07/29/2010 : 1960 PHYSICIAN: Kenyon Morgan MD FINDINGS: 1. Baseline spirometry reveals normal expiratory flows. 2. Following administration of bronchodilator, there is no significantchange in expiratory flows. 3. Lung volumes are within normal limits. 4. Diffusing capacity is within normal limits. 5. Flow volume loop has a normal configuration. IMPRESSION: Normal pulmonary function with no obstructive or restrictivelung disease. Gas transfer capacity is normal. Compared to the patient'sprior PFT from 06/25/2009 there has been an increase in expiratory flows,lung volumes and gas transfer capacity. Overall this is consistent withinterval improvement in the patient's normal pulmonary function. MD JUSTYNA Madison/Margarita #:[id number] Kenyon Morgan MD RESPIRATORY THERAPY ORDERABLES * OLIVER W REFLEX DS-DNA+OSEI+SSJ (PO REF LAB) (02/07/2010 2:00 PM CDT) OLIVER Direct Negative Negative [facility] INSURANCE BILL BLOOD SPECIMEN / Unknown 02/07/2010 2:00 PM CDT 02/07/2010 7:35 PM CDT Narrative Resulting Agency Comment [facility] [address] [phone] Kenyon Morgan MD LAB - SEROLOGY ORDER SAMMY [facility] INSURANCE BILL * RHEUMATOID FACTOR BLOOD QUANTITATIVE (02/07/2010 2:00 PM CDT) Rheumatoid Factor 9.9 0.0 - 13.9 IU/mL [facility] INSURANCE BILL BLOOD SPECIMEN / Unknown 02/07/2010 2:00 PM CDT 02/07/2010 7:35 PM CDT Narrative Resulting Agency Comment [facility] [address] [phone] Kenyon Morgan MD LAB - CHEMISTRY ORDE RABMENDY [facility] INSURANCE BILL * (ABNORMAL) HEMOGLOBIN A1C (02/07/2010 2:00 PM CDT) Hemoglobin A1c 6.0(H) 4.8 - 5.6 % [facility] INSURANCE BILL Comment: Increased risk for diabetes: 5.7 - 6.4 Diabetes: >6.4 Glycemic control for adults with diabetes: <7.0 BLOOD SPECIMEN / Unknown 02/07/2010 2:00 PM CDT 02/07/2010 7:35 PM CDT Narrative Resulting Agency Comment [facility] [address] [phone] Kenyon Morgan MD LAB - CHEMISTRY ORDJax OLIVEROS [facility] INSURANCE BILL * SED RATE WESTERGREN AUTO (02/07/2010 2:00 PM CDT) Erythrocyte Sedimentation Rate Westergren 12 0 - 20 mm/hr [facility] INSURANCE BILL BLOOD SPECIMEN / Unknown 02/07/2010 2:00 PM CDT 02/07/2010 7:35 PM CDT Narrative Resulting Agency Comment [place] [id number] [facility] [phone] Kenyon Morgan MD LAB - HEMATOLOGY STEF SANCHEZ [facility] INSURANCE BILL * (ABNORMAL) BASIC METABOLIC PANEL (CALCIUM TOTAL) (02/07/2010 2:00 PM CDT) Glucose 89 65 - 99 mg/dL [facility] INSURANCE BILL BUN 11 5 - 26 mg/dL [facility] INSURANCE BILL Creatinine 1.29(H) 0.57 - 1.00 mg/dL [facility] INSURANCE BILL eGFR by MDRD 44(L) >59 mL/min/1.7 3 [facility] INSURANCE BILL eGFR by MDRD 53(L) >59 mL/min/1.7 3 [facility] INSURANCE BILL Comment: Note: Persistent reduction for 3 months or more in an eGFR <60 mL/min/1.73 m2 defines CKD. Patients with eGFR values >/=60 mL/min/1.73 m2 may also have CKD if evidence of persistent proteinuria is present. Additional information may be found at [email or web address].org. BUN/Creatinine Ratio 9 8 - 27 [facility] INSURANCE BILL Sodium 140 135 - 145 mmol/L [facility] INSURANCE BILL Potassium 4.0 3.5 - 5.2 mmol/L [facility] INSURANCE BILL Chloride 102 97 - 108 mmol/L [facility] INSURANCE BILL CO2 23 20 - 32 mmol/L [facility] INSURANCE BILL Calcium 9.8 8.7 - 10.2 mg/dL [facility] INSURANCE BILL BLOOD SPECIMEN / Unknown 02/07/2010 2:00 PM CDT 02/07/2010 7:35 PM CDT Narrative Resulting Agency Comment [facility] [address] [phone] Kenyon Morgan MD LAB - CHEMISTRY JOSE ARMANDO OLIVEROS [facility] INSURANCE BILL * VITAMIN D 1,25 DIHYDROXY (02/07/2010 1:59 PM CDT) Calcitriol (1,25 di-OH Vit D) 24.8 10.0 - 75.0 pg/mL [facility] INSURANCE BILL BLOOD SPECIMEN / Unknown 02/07/2010 1:59 PM CDT 02/07/2010 7:53 PM CDT Narrative Resulting Agency Comment [facility] [address] [phone] Kenyon Morgan MD LAB - CHEMISTRY JOSE ARMANDO OLIVEROS [facility] INSURANCE BILL * (ABNORMAL) ALLERGEN PROFILE ZONE 10 (07/22/2009 11:53 AM BIOMEDICAL MANAGER) Class Description Blood [facility] ACCOUNT BILL Comment: Levels of Specific IgE Class Description of Class ----- <0.05 0 Negative 0.05 - 0.07 0/I Equivocal 0.08 - 0.15 I Increasing 0.16 - 0.50 II levels 0.51 - 2.50 III of 2.51 - 12.50 IV Specific IgE 12.51 - 62.50 V Antibody 62.51 - >100.00 Allergen Dermatophagoides pteronyssinus 1.14(A) Class III kU/L [facility] ACCOUNT BILL Allergen Dermatophagoides farinae 1.28(A) Class III kU/L [facility] ACCOUNT BILL Allergen Cat Dander <0.05 Class 0 kU/L [facility] ACCOUNT BILL Allergen Dog Epithelium <0.05 Class 0 kU/L [facility] ACCOUNT BILL Allergen Bermuda Grass 0.32(A) Class II kU/L [facility] ACCOUNT BILL Allergen Paty Grass 0.59(A) Class III kU/L [facility] ACCOUNT BILL Allergen Braden Grass 0.14(A) Class I kU/L [facility] ACCOUNT BILL Allergen Cockroach Nicaraguan <0.05 Class 0 kU/L [facility] ACCOUNT BILL Allergen P. Notatum <0.05 Class 0 kU/L [facility] ACCOUNT BILL Allergen C Herbarum 0.05(A) Class 0/I kU/L [facility] ACCOUNT BILL Allergen Aspergillus fumigatus 0.09(A) Class I kU/L [facility] ACCOUNT BILL Allergen Mucor racemosus 0.06(A) Class 0/I kU/L [facility] ACCOUNT BILL Allergen A Tenuis 0.05(A) Class 0/I kU/L [facility] ACCOUNT BILL Allergen Stemphylium botryosum <0.05 Class 0 kU/L [facility] ACCOUNT BILL Allergen [place] <0.05 Class 0 kU/L [facility] ACCOUNT BILL Allergen Elm <0.05 Class 0 kU/L [facility] ACCOUNT BILL Allergen Maple <0.05 Class 0 kU/L [facility] ACCOUNT BILL Allergen [place] <0.05 Class 0 kU/L [facility] ACCOUNT BILL Allergen Nicaraguan [place] <0.05 Class 0 kU/L [facility] ACCOUNT BILL Allergen [place] <0.05 Class 0 kU/L [facility] ACCOUNT BILL Allergen [place] <0.05 Class 0 kU/L [facility] ACCOUNT BILL Allergen Short/Common Ragweed <0.05 Class 0 kU/L [facility] ACCOUNT BILL Allergen Ivorian Plantain <0.05 Class 0 kU/L [facility] ACCOUNT BILL Allergen Greenlandic Thistle <0.05 Class 0 kU/L [facility] ACCOUNT BILL Allergen Rough Pigweed <0.05 Class 0 kU/L [facility] ACCOUNT BILL Allergen [place] <0.05 Class 0 kU/L [facility] ACCOUNT BILL Allergen Neetle <0.05 Class 0 kU/L [facility] ACCOUNT BILL 07/22/2009 11:5 3 AM BIOMEDICAL MANAGER 07/22/2009 5:07 PM BIOMEDICAL MANAGER Narrative [facility] ACCOUNT BILL - 07/28/2009 8:08 PM BIOMEDICAL MANAGER [id number] [place]; [id number] Pigweed, Rough; [id number] [place](Dock); [id number] Nettle were developed and had performance characteristics determined by [facility]. These tests have not been cleared or approved by the U.S. Food and Drug Administration. The FDA has determined that such clearance or approval is not necessary. These tests are used for clinical purposes. These should not be regarded as investigational or for research. Resulting Agency Comment [facility] [address] [phone] Kenyon Morgan MD LAB - SEROLOGY ORDER SAMMY [facility] ACCOUNT BILL * PNEUMONITIS HYPERSENSITIVE PANEL (07/22/2009 11:53 AM BIOMEDICAL MANAGER) Aspergillus fumigatus IGG Antibody Negative Negative [facility] ACCOUNT BILL Micropolyspora faeni IgG Antibody Negative Negative [facility] ACCOUNT BILL Thermoactinomyces vulgaris IgG Negative Negative [facility] ACCOUNT BILL Aureobasidium pullulans IgG Antibody Negative Negative [facility] ACCOUNT BILL Thermoactinomyces sacchari IgG Negative Negative [facility] ACCOUNT BILL [place]ick Serum IgG Negative Negative LAB [facility] ACCOUNT BILL 07/22/2009 11:5 3 AM BIOMEDICAL MANAGER 07/22/2009 5:07 PM BIOMEDICAL MANAGER Narrative [facility] ACCOUNT BILL - 07/28/2009 8:08 PM BIOMEDICAL MANAGER [id number] [place]; [id number] Pigweed, Rough; [id number]- [id number] [place]ock); [id number] Nettle were developed and had performance characteristics determined by [facility]. These tests have not been cleared or approved by the U.S. Food and Drug Administration. The FDA has determined that such clearance or approval is not necessary. These tests are used for clinical purposes. These should not be regarded as investigational or for research. Resulting Agency Comment [facility] [address] [phone] Kenyon Morgan MD LAB - CHEMISTRY JOSE ARMANDO OLIVEROS [facility] ACCOUNT BILL * FUNGAL ANTIBODY PANEL (07/22/2009 11:53 AM BIOMEDICAL MANAGER) Aspergillus fumigatus Negative Neg:<1:1 [facility] ACCOUNT BILL Aspergillus flavus Negative Neg:<1:1 [facility] ACCOUNT BILL Aspergillus niger Negative Neg:<1:1 [facility] ACCOUNT BILL Blastomyces Antibody Quantitative DID Negative Neg:<1:1 [facility] ACCOUNT BILL Coccidioides Antibody Quantitative DID Negative Neg:<1:1 [facility] ACCOUNT BILL Histoplasma Antibody Quantitative DID Negative Neg:<1:1 [facility] ACCOUNT BILL 07/22/2009 11:5 3 AM BIOMEDICAL MANAGER 07/22/2009 5:07 PM BIOMEDICAL MANAGER Narrative [facility] ACCOUNT BILL - 07/28/2009 8:08 PM BIOMEDICAL MANAGER [id number] [place]; [id number] Pigweed, Rough; [id number]- [id number] [place]); [id number] Nettle were developed and had performance characteristics determined by [facility]. These tests have not been cleared or approved by the U.S. Food and Drug Administration. The FDA has determined that such clearance or approval is not necessary. These tests are used for clinical purposes. These should not be regarded as investigational or for research. Resulting Agency Comment [facility] [address] [phone] Kenyon Morgan MD LAB - CHEMISTRY JOSE ARMANDO OLIVEROS Performing Organization Address [facility] Co de Phone Number [facility] ACCOUNT BILL * (ABNORMAL) VITAMIN D 25-HYDROXY (07/22/2009 11:53 AM BIOMEDICAL MANAGER) Vitamin D, 25 Hydroxy 7.3(L) 32.0 - 100.0 ng/mL [facility] ACCOUNT BILL Comment: Recent studies consider the lower limit of 32.0 ng/mL to be a threshold for optimal health. Jasbir HOOPER. J Nutr. 2004;135(2):317-22. 07/22/2009 11:5 3 AM BIOMEDICAL MANAGER 07/22/2009 5:07 PM BIOMEDICAL MANAGER Narrative [facility] ACCOUNT BILL - 07/28/2009 8:08 PM BIOMEDICAL MANAGER [id number] [place]; [id number] Pigweed, Rough; [id number]- [id number] [place]); [id number] Nettle were developed and had performance characteristics determined by [facility]. These tests have not been cleared or approved by the U.S. Food and Drug Administration. The FDA has determined that such clearance or approval is not necessary. These tests are used for clinical purposes. These should not be regarded as investigational or for research. Resulting Agency Comment [facility] [address] [phone] Kenyon Morgan MD LAB - CHEMISTRY JOSE ARMANDO OLIVEROS Performing Organization Address City/[facility]/ZIP Co de Phone Number [facility] ACCOUNT BILL * CBC W AUTO DIFFERENTIAL (07/22/2009 11:53 AM BIOMEDICAL MANAGER) WBC 7.7 4.0 - 10.5 x10E3/uL [facility] ACCOUNT BILL RBC 4.41 3.80 - 5.10 x10E6/uL [facility] ACCOUNT BILL Hemoglobin 13.5 11.5 - 15.0 g/dL [facility] ACCOUNT BILL Hematocrit 39.3 34.0 - 44.0 % [facility] ACCOUNT BILL MCV 89 80 - 98 fL [facility] ACCOUNT BILL MCH 30.6 27.0 - 34.0 pg [facility] ACCOUNT BILL MCHC 34.3 32.0 - 36.0 g/dL [facility] ACCOUNT BILL RDW 12.9 11.7 - 15.0 % [facility] ACCOUNT BILL Platelet Count 367 140 - 415 x10E3/uL [facility] ACCOUNT BILL Granulocytes % 69 40 - 74 % [facility] ACCOUNT BILL Lymphocytes % 19 14 - 46 % [facility] ACCOUNT BILL Monocytes % 10 4 - 13 % [facility] ACCOUNT BILL Eosinophils % 1 0 - 7 % [facility] ACCOUNT BILL Basophils % 1 0 - 3 % [facility] ACCOUNT BILL Immature Cells NOT AVAIL. [facility] ACCOUNT BILL Granulocytes Absolute 5.3 1.8 - 7.8 x10E3/uL [facility] ACCOUNT BILL Lymphocytes Absolute 1.5 0.7 - 4.5 x10E3/uL [facility] ACCOUNT BILL Monocytes Absolute 0.8 0.1 - 1.0 x10E3/uL [facility] ACCOUNT BILL Eosinophils Absolute 0.1 0.0 - 0.4 x10E3/uL [facility] ACCOUNT BILL Basophils Absolute 0.1 0.0 - 0.2 x10E3/uL [facility] ACCOUNT BILL Immature Granulocytes NOT AVAIL. [facility] ACCOUNT BILL Immature Granulocytes Absolute NOT AVAIL. [facility] ACCOUNT BILL nRBC NOT AVAIL. [facility] ACCOUNT BILL Comment Hematology NOT AVAIL. [facility] ACCOUNT BILL 07/22/2009 11:5 3 AM BIOMEDICAL MANAGER 07/22/2009 5:07 PM BIOMEDICAL MANAGER Narrative [facility] ACCOUNT BILL - 07/28/2009 8:08 PM BIOMEDICAL MANAGER [id number] [place]; [id number] Pigweed, Rough; [id number]- [id number] [place]); [id number] Nettle were developed and had performance characteristics determined by [facility]. These tests have not been cleared or approved by the U.S. Food and Drug Administration. The FDA has determined that such clearance or approval is not necessary. These tests are used for clinical purposes. These should not be regarded as investigational or for research. Additional Result Information IMMATURE CELLS ([facility]): RESULT NOT AVAILABLE IMMATURE GRANULOCYTES ([facility]): RESULT NOT AVAILABLE IMMATURE GRANS (ABS) ([facility]): RESULT NOT AVAILABLE NRBC ([facility]): RESULT NOT AVAILABLE HEMATOLOGY COMMENTS: BLOOD,URINE ([facility]): RESULT NOT AVAILABLE Resulting Agency Comment [facility] [address] [phone] Kenyon Morgan MD LAB - HEMATOLOGY ORD ERABLES Performing Organization Address [facility] de Phone Number [facility] ACCOUNT BILL * IGE (07/22/2009 11:53 AM BIOMEDICAL MANAGER) IgE 8 0 - 158 IU/mL [facility] ACCOUNT BILL 07/22/2009 11:5 3 AM BIOMEDICAL MANAGER 07/22/2009 5:07 PM BIOMEDICAL MANAGER Narrative [facility] ACCOUNT BILL - 07/28/2009 8:08 PM BIOMEDICAL MANAGER [id number] [place]; [id number] Pigweed, Rough; [id number]- [id number] [place]); [id number] Nettle were developed and had performance characteristics determined by [facility]. These tests have not been cleared or approved by the U.S. Food and Drug Administration. The FDA has determined that such clearance or approval is not necessary. These tests are used for clinical purposes. These should not be regarded as investigational or for research. Resulting Agency Comment [facility] [address] [phone] Kenyon Morgan MD LAB - CHEMISTRY JOSE ARMANDO OLIVEROS Performing Organization Address [facility]/ZIP Co de Phone Number [facility] ACCOUNT BILL * (ABNORMAL) BLOOD GASES + COOX ARTERIAL PANEL (06/25/2009 8:10 AM BIOMEDICAL MANAGER) pH Arterial 7.419 7.38 - 7.42 pH Units [facility] pCO2 Arterial 34.8(L) 38 - 42 mm Hg [facility] pO2 Arterial 92.0 75 - 100 mm Hg [facility] O2 Saturation Arterial 97.0 92.0 - 98.5 % [facility] HCO3 Arterial 22.0 22 - 29 mmol/L [facility] TCO2 Arterial 23.1 23.0 - 27.0 mmol/L [facility] Base Excess Arterial -1.8 -2.0 to 2.0 mmol/L [facility] Oxyhemoglobin Arterial 96.6 92.0 - 98.5 % [facility] Carboxyhemoglobin Arterial 0.1(L) 0.5 - 1.5 % [facility] Methemoglobin Arterial 0.3 0.0 - 1.5 % [facility] O2 Content Arterial 19.4 15 - 23 % [facility] Hemoglobin Arterial 14.2 12.0 - 18.0 gm/dl [facility] Hematocrit Arterial 42 36 - 54 % [facility] Glucose 102 75 - 110 mg/dl [facility] Sodium Arterial 133.4(L) 135 - 145 mmol/L [facility] Potassium Arterial 3.95 3.3 - 5.3 mmol/L [facility] Calcium Ionized 1.21 1.10 - 1.33 mmol/L [facility] Site RIGHT RADIAL [facility] FI O2 Arterial 21.0 [facility] Reported To CATY [facility] ARTERIAL BLOOD SPECIMEN / Unknown 06/25/2009 8:10 AM BIOMEDICAL MANAGER 06/25/2009 8:15 AM BIOMEDICAL MANAGER Kenyon Morgan MD LAB - BLOOD GASES OR DERABLES [facility] [address] [place] [address] * COMPLETE PFT (06/25/2009 12:00 AM BIOMEDICAL MANAGER) 06/25/2009 Narrative 07/04/2009 12:41 PM BIOMEDICAL MANAGER [facility] Pulmonary Function Test [facility] PULMONARY FUNCTION TEST REPORT PATIENT: LUDA PEREZ MR#: [id number] ADMIT DATE: 06/25/2009 DATE OF PROCEDURE: 06/25/2009 : 1960 PHYSICIAN: Kenyon Morgan MD PULMONARY FUNCTION TEST: 1. Baseline spirometry reveals normal expiratory flows. 2. Following administration of bronchodilator, there is a 15% to 20% improvement in expiratory flows. 3. Lung volumes are within normal limits. 4. Diffusing capacity is within normal limits. 5. Flow volume loop has a normal configuration. 6. Arterial blood gases on room air demonstrate no significant hypercapnia or hypoxemia. IMPRESSION: Normal expiratory flows with a minimal improvement following bronchodilator administration consistent with a component of reversible airway obstruction. There is no restrictive lung disease. Gas transfer capacity is normal with normal oxygenation and ventilation on blood gases. Kenyon Morgan MD JUSTYNA/MedQ #: [id number] Procedure Note Kenyon Morgan MD - 06/25/2009 12:00 AM CST [facility] Pulmonary Function Test [facility] PULMONARY FUNCTION TEST REPORT PATIENT: LUDA PEREZ MR#: [id number] ADMIT DATE: 06/25/2009 DATE OF PROCEDURE: 06/25/2009 : 1960 PHYSICIAN: Kenyon Morgan MD PULMONARY FUNCTION TEST: 1. Baseline spirometry reveals normal expiratory flows. 2. Following administration of bronchodilator, there is a 15% to 20%improvement in expiratory flows. 3. Lung volumes are within normal limits. 4. Diffusing capacity is within normal limits. 5. Flow volume loop has a normal configuration. 6. Arterial blood gases on room air demonstrate no significant hypercapniaor hypoxemia. IMPRESSION: Normal expiratory flows with a minimal improvement followingbronchodilator administration consistent with a component of reversibleairway obstruction. There is no restrictive lung disease. Gas transfercapacity is normal with normal oxygenation and ventilation on bloodgases. Kenyon Morgan MD JUSTYNA/MedQ #:[id number] Kenyon Morgan MD RESPIRATORY THERAPY ORDERABLES * COMPLETE PFT (06/25/2009) Kenyon Morgan MD RESPIRATORY THERAPY ORDERABLES Care Teams Head Porter Relationship Specialty Start Date End Date Nina Contreras MD PCP - General 02/07/10 Hussein Mcghee MD [address] [facility] [address] [place] [address] Nephrology 07/29/[address] [place] [address] [facility] [address] [place] [address] Pulmonary Disease 01/27/11
--- OUTSIDE RECORDS SUMMARY | 2024-08-29 12:07 | XMS_ITS | Encounter Summary ---
Author Organization [employer] Address [address] [place] [address] Care Team Providers Care Drywall Professional Name Role Phone Chance Medellin MD Primary Care Provider [phone] Encounter Details Date Type Department Care Team (Late st Contact Info) Description 08/14/2003 Outpatient Historical Division [facility] Neurology [address] [facility] [address] Nohemy Benitez MD [address] [facility] [address] [place] [address] Social History Tobacco Use Types Packs/Day Years Used Date Smoking Tobacco: Never Assessed Comments Unknown Sex and Gender Information Value Date Recorded Sex Assigned at Not on file Legal Sex Female 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
--- OUTSIDE RECORDS SUMMARY | 2024-08-29 12:07 | XMS_ITS | Encounter Summary ---
Author Organization [facility] Address [address] [place] [address] Care Team Providers Care Affiliate Manager Name Role Phone Chance Medellin MD Primary Care Provider [phone] Encounter Details Date Type Department Care Team (Late st Contact Info) Description 04/13/2005 Outpatient Historical [facility] Internal Medicine [facility] [address] [facility] [address] [address] Nina Contreras MD Social History Tobacco Use Types Packs/Day Years Used Date Smoking Tobacco: Never Assessed Comments Unknown Sex and Gender Information Value Date Recorded Sex Assigned at Not on file Legal Sex Female 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 Gender Identity Not on file Sexual Orientation Not on file documented as of this encounter Last Filed Vital Signs Vital Sign Reading Time Taken Comments Blood Pressure 130/94 04/13/2005 11:45 AM CDT Pulse 76 04/13/2005 11:45 AM CDT Temperature 37.1 C (98.8 F) 04/13/2005 11:45 AM CDT Respiratory Rate 12 04/13/2005 11:45 AM CDT Oxygen Saturation - - Inhaled Oxygen Concentration - - Weight 86.2 kg (190 lb) 04/13/2005 11:45 AM CDT Height - - Body Mass Index 29.76 06/13/2004 9:30 AM SENIOR MEDICAL BILLING SPECIALIST documented in this encounter Plan of Treatment Not on file documented as of this encounter Visit Diagnoses Not on filedocumented in this encounter Care Teams Affiliate Manager Relationship Specialty Start Date End Date Chance Medellin MD [address] [facility] [address] [place] [phone] PCP - General Internal Medicine 04/28/16 documented as of this encounter
--- OUTSIDE RECORDS SUMMARY | 2024-08-29 12:07 | XMS_ITS | Encounter Summary ---
Author Organization [employer] Address [address] [place] [address] Care Team Providers Care Musical Instrument Mechanic Name Role Phone Chance Medellin MD Primary Care Provider [phone] Encounter Details Date Type Department Care Team (Late st Contact Info) Description 02/19/2001 Outpatient Historical Division of Neurology [address] [address] Nohemy Benitez MD [address] [facility] [address] [place] [address] Social History Tobacco Use Types Packs/Day Years Used Date Smoking Tobacco: Never Assessed Comments Unknown Sex and Gender Information Value Date Recorded Sex Assigned at Not on file Legal 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
--- OUTSIDE RECORDS SUMMARY | 2024-08-29 12:07 | XMS_ITS | Encounter Summary ---
Author Organization [facility] Address [address] [place] [address] Care Team Providers Care Documentation Lead Name Role Phone Chance Medellin MD Primary Care Provider [phone] Encounter Details Date Type Department Care Team (Late st Contact Info) Description 01/20/2003 Outpatient Historical [facility] Internal Medicine [facility] [address] [facility] [address] [place] [address] Niesha Arevalo MD [address] [place] [address] Social History Tobacco Use Types Packs/Day Years Used Date Smoking Tobacco: Never Assessed Comments Unknown Sex and Gender Information Value Date Recorded Sex Assigned at Not on file Legal Sex Female 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
--- OUTSIDE RECORDS SUMMARY | 2024-08-29 12:07 | XMS_ITS | Encounter Summary ---
Author Organization [facility] Address [address] [place] [address] Care Team Providers Care Presser Automatic Name Role Phone Chance Medellin MD Primary Care Provider Encounter Details Date Type Department Care Team (Late st Contact Info) Description 04/15/2008 Outpatient Historical [facility] Franklyn Tolbert MD [address] [facility] [address] [address] Cervicalgia Social History Tobacco Use Types Packs/Day Years Used Date Smoking Tobacco: Never Alcohol Use Standard Drinks/Week Comments No 0 (1 standard drink = 0.6 oz pur e alcohol) Comments No Sex and Gender Information Value Date Recorded Sex Assigned at Not on file Legal Sex Female 4:[address]IGHT REPAIRER Gender Identity Not on file Sexual Orientation Not on file documented as of this encounter Plan of Treatment Not on file documented as of this encounter Visit Diagnoses Diagnosis Cervicalgia documented in this encounter Care Teams Presser Automatic Relationship Specialty Start Date End Date Chance Medellin MD [address] [facility] [address] [place] [address] PCP - General Internal Medicine 04/28/16 documented as of this encounter
--- OUTSIDE RECORDS SUMMARY | 2024-08-29 12:07 | XMS_ITS | Encounter Summary ---
Author Organization [employer] Address [address] [place] [address] Care Team Providers Care Vehicle Operator Name Role Phone Chance Medellin MD Primary Care Provider [phone] Encounter Details Date Type Department Care Team (Late st Contact Info) Description 07/27/2005 Outpatient Historical [facility] [address] [place] [address] Brad Adkins MD [address] [address] [place] [address] Social History Tobacco Use Types Packs/Day Years Used Date Smoking Tobacco: Never Assessed Comments Unknown Sex and Gender Information Value Date Recorded Sex Assigned at Not on file Legal Sex Female 4:22 AM HR RECEPTIONIST Gender Identity Not on file Sexual Orientation Not on file documented as of this encounter Plan of Treatment Not on file documented as of this encounter Visit Diagnoses Not on filedocumented in this encounter Care Teams Vehicle Operator Relationship Specialty Start Date End Date Chance Medellin MD [address] [facility] [address] [place] [address] PCP - General Internal Medicine 04/28/16 documented as of this encounter
--- OUTSIDE RECORDS SUMMARY | 2024-08-29 12:07 | XMS_ITS | Encounter Summary ---
Author Organization [facility] Address [address] [place] [address] Care Team Providers Care Pipe Fitter Soft Copper Name Role Phone Chance Medellin MD Primary Care Provider Encounter Details Date Type Department Care Team (Late st Contact Info) Description 03/04/2001 Outpatient Historical [facility] Internal Medicine [facility] [address] [facility] [address] [place] [address] Niesha Arevalo MD [address] [place] [address] Social History Tobacco Use Types Packs/Day Years Used Date Smoking Tobacco: Never Assessed Comments Unknown Sex and Gender Information Value Date Recorded Sex Assigned at Not on file Legal Sex Female 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
--- OUTSIDE RECORDS SUMMARY | 2024-08-29 12:07 | XMS_ITS | Encounter Summary ---
Author Organization [facility] Address [address] [place] [address] Care Team Providers Care Wool Cleaner Name Role Phone Chance Medellin MD Primary Care Provider [phone] Encounter Details Date Type Department Care Team (Late st Contact Info) Description 02/10/2003 Outpatient Historical [facility] Niesha Witt MD [address] [place] [address] LOWER LEG INJURY NOS (Primary Dx) Social History Tobacco Use Types Packs/Day Years Used Date Smoking Tobacco: Never Assessed Comments Unknown Sex and Gender Information Value Date Recorded Sex Assigned at Not on file Legal Sex Female 4: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
--- OUTSIDE RECORDS SUMMARY | 2024-08-29 12:07 | XMS_ITS | Clinical Summary ---
Author Organization [facility] Address [address] [place] [address] Care Team Providers Care Configuration Analyst Name Role Phone Mykel Garcia DO Primary Care Provider + Allergies Active Allergy Reactions Criticality Noted Date Comments Chlorthalidone Unknown,Rash Medium 06/03/2021 Iodinated Contrast Media Hives,Unknown High 11/05/19 08 Iodine Hives,Itching,Rash Medium 03/25/2020 Iohexol Hives 11/18/2021 Metoclopramide Other (see comment),Unknown,Darrell lucinations Medium 11/05/2007 Naproxen Swelling,Unknown Medium 11/05/2007 Tape Unknown,Rash,Other (see comment) Medium 04/26/2010 Skin comes off Medications aspirin EC 81 MG tablet Take 1 tablet (81 mg total) by mouth daily. Active cetirizine (ZYRTEC ALLERGY) 10 MG tabletIndications :Seasonal allergies Take 1 tablet (10 mg total) by mouth daily. 90 tablet 3 022 Active vitamin B-12 (CYANOCOBALAMIN) (CYANOCOBALAMIN) 1000 mcg tabletIndications :Vitamin B12 deficiency Take 1 tablet (1,000 mcg total) by mouth daily. 90 tablet 3 022 Active Cholecalciferol (VITAMIN D) 50 MCG (1999 UT) TabIndications:Vi tamin D deficiency Take 1 tablet by mouth daily. 90 tablet 3 022 Active enalapril (VASOTEC) 20 MG tabletIndications :Benign hypertension with stage 3a chronic kidney disease ([facility] HHS/HCC) Take 1 tablet (20 mg total) by mouth 2 (two) times daily. 90 tablet 024 Active fluticasone-salme terol (ADVAIR DISKUS) 100-50 MCG/ACT inhalerIndication s:Mild intermittent asthma without complication (HHS/HCC) Inhale 1 puff into the lungs 2 (two) times daily. 60 each 1 024 Active doxazosin (CARDURA) 2 MG tabletIndications :Benign hypertension with stage 3a chronic kidney disease ([facility] HHS/HCC) Take 1 tablet (2 mg total) by mouth nightly at bedtime. 90 tablet 024 Active albuterol sulfate HFA (VENTOLIN HFA) 108 (90 Base) MCG/ACT inhalerIndication s:Mild intermittent asthma without complication (HHS/HCC) Inhale 2 puffs into the lungs every 4 (four) hours as needed for Wheezing. 18 g 2 024 Active dilTIAZem ER 240 MG 24 hr capsuleIndication s:Benign hypertension with stage 3a chronic kidney disease ([facility] HHS/HCC) Take 1 capsule (240 mg total) by mouth daily. 90 capsule 024 Active Additional Information Patient taking differently:240 mg OralBID, Reported on 08/29/2024 atorvastatin (LIPITOR) 10 MG tabletIndications :Hyperlipidemia, unspecified hyperlipidemia type TAKE 1 TABLET BY MOUTH EVERY DAY 90 tablet 1 024 Active methylphenidate (RITALIN) 10 MG tabletIndications :Demyelinating disease of central nervous system ([facility] HHS/HCC) Take 1 tablet (10 mg total) by mouth daily. 30 tablet 024 Active omeprazole (PRILOSEC) 20 MG capsuleIndication s:Gastroesophagea l reflux disease, unspecified whether esophagitis present TAKE 1 CAPSULE BY MOUTH EVERY DAY 90 capsule 1 025 Active omeprazole (PRILOSEC) 20 MG capsuleIndication s:Gastroesophagea l reflux disease, unspecified whether esophagitis present Take 1 capsule (20 mg total) by mouth daily. 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 ([facility]) 03/25/2020 Hiatal hernia 03/25/2020 Vitamin D deficiency 03/25/2020 Prediabetes 01/18/2018 Chronic cough 06/26/2017 Demyelinating disease of sigrid tral nervous system ([facility]) 06/26/2017 Herniation of intervertebral disc 02/26/2014 Sleep disturbance 07/29/2010 Hyperlipidemia 11/11/2009 Primary hypercoagulable state ([facility]) 08/17/2009 Overview (03/26/2020): Hx of clotting disorder with thrombosis due to abnormal clotting protein. Esophageal stricture 08/17/2009 Overview (11/12/2023): She is status post dilatation. Fatigue 12/01/2008 Overview (03/26/2020): Due to neurologic disorder: possibly MS. Requires ritalin to function Family history of cardiovascular disease 009 Overview (03/26/2020): Brother had MD in 40s Chronic kidney disease, stage II (mild) 11/05/19 08 Overview (03/26/2020): Had seen Dr. Mcghee but no longer will see him due to differences Cobalamin deficiency 07/03/2006 H/O prothrombin mutation 06/22/2006 Overview (03/26/2020): Prothrombin promotor mutation, heterozygous Hypertension 06/13/2004 Overview (03/26/2020): No JUSTYNA US 2004 Nl LV fxn, no my abn echo 2003 No ischemia, LVEF 67% stress 2005 No ischemia, nl LV fxn, ZOE 04/28 Gastroesophageal reflux disease 06/02/2004 Overview (03/26/2020): She is status post dilatation. EGD 2005 Asthma ([facility]) 05/19/2004 Overview (03/26/2020): Adult onset. Dr. Kenyon Morgan, [facility] Neurogenic bladder 05/19/2004 Resolved Problems Problem Noted Date Diagnosed Date Resolved Date Bite by animal 11/22/2021 09/11/2022 Sinusitis 07/05/2015 09/11/2022 Encounter for preventive health examination 12/05/2012 04/02/2020 Snoring 07/29/2010 09/11/2022 Allergic rhinitis 08/17/2009 09/11/2022 Overview (03/26/2020): RAST positive for dust, mold, grass. Memory loss 07/13/2006 09/11/2022 Encounters Date Type Department Care Team Description 08/29/2024 10:00 AM COMPENSATION MANAGER Office Visit [facility] [address] [phone] Mykel Garcia P, DO Leg Pain (Pt admits to the pain starting about 8pm last night. She admits that now it is not hurting as bad, it only hurts when touched or or bumped. She is worried due to her blood clot disorder and wants to make sure she is ok.//Wants to discuss vaccines before getting the flu and pneumonia ) 08/29/2024 Travel 08/18/2024 Patient Outreach [facility] [address] [phone] Sharon Dhillon, supervisor covering and lining Medication (Enalapril - successful 2024) 07/11/2024 Telephone [facility] [address] [phone] Mykel Garcia, DO Fall 06/30/2024 Telephone [facility] [address] [phone] Mykel Garcia, DO Lab Results 06/06/2024 8:20 AM COMPENSATION MANAGER Office Visit [facility] [address] [phone] Mykel Garcia DO Hypertension (Follow up on b/p ); Cyst (The patient was seen for a cyst 2 weeks ago and was prescribed septra. She states the area improved and started draining last night. ) 06/06/2024 Telephone [facility] [address] [phone] Mykel Garcia DO Lab Order 06/06/2024 Travel from Last 3 Months Immunizations Name Administration Dates Next Due Fluzone 6 Months+ Quad (0.5 mL Prefilled Syringe) 03/26/2020 H1N1 Injectable 2008 Influenza 07/23/2009 Influenza (Generic) 06/26/2017, 6,07/23/2013,2009,06/30/2009 Influenza Adult (Generic) 06/17/2023,,06/26/2017,2015,07/23/2013 Pneumococcal (Pneumovax 23) 04/26/2010 Tdap (Generic) 11/18/2021 Tdap (Historical Only-select from magnify glass) 03/26/2020 Tetanus Diptheria 07/23/1998 Tetanus Toxoid Inj 07/23/1998 Family History Medical History Relation Comments Aneurysm Brother 1 cerebral Early Brother 2 Cerebral aneurys m Cancer Father Lung Glaucoma Father Lung Cancer Father Diabetes Mother Hypertension Mother Thyroid Disease Mother Glaucoma Sister Thyroid Disease Sister Relation Status Comments Brother 1 Brother 2 Father Mother Sister Alive Social History Tobacco Use Types Packs/Day Years Used Date Smoking Tobacco: Never Passive Smoke Exposure: Never Smokeless Tobacco: Never Tobacco Cessation:Counseling Given: Not Answered Alcohol Use Standard Drinks/Week Comments Never 0 (1 standard drink = 0.6 oz pur e alcohol) AUDIT-C Answer Date Recorded Q1: How often do you have a drink containing alc ohol? Never 03/26/2020 Average Number of Drinks Not on file 020 Frequency of Binge Drinking Not on file 10/2019 PHQ-2 Answer Date Recorded Patient Health Questionnaire-2 Score 0 08/29/2024 Comments No Sex and Gender Information Value Date Recorded Sex Assigned at Not on file Legal Sex Female 8:32 PM CDT Gender Identity Not on file Sexual Orientation Not on file Last Filed Vital Signs Vital Sign Reading Time Taken Comments Blood Pressure 124/70 08/29/2024 10:10 AM COMPENSATION MANAGER Pulse 74 08/29/2024 10:10 AM COMPENSATION MANAGER Temperature 35.9 C (96.6 F) 08/29/2024 10:10 AM COMPENSATION MANAGER Respiratory Rate 16 08/29/2024 10:10 AM COMPENSATION MANAGER Oxygen Saturation 98% 08/29/2024 10:10 AM COMPENSATION MANAGER Inhaled Oxygen Concentration - - Weight 96.6 kg (213 lb) 08/29/2024 10:10 AM COMPENSATION MANAGER Height 170.2 cm (5' 7 ) 08/29/2024 10:10 AM COMPENSATION MANAGER Body Mass Index 33.36 08/29/2024 10:10 AM COMPENSATION MANAGER Plan of Treatment Health Maintenance Due Date Last Done Comments Cervical Cancer Screening Pap Smear (Age 30 to 64) Every 3 Years 1960 Cervical Cancer Screening Pap with HPV Testing (Age 30 to 64) Every 5 Years 1990 Pneumococcal Vaccine: Pediatrics (0 to 5 Years) and At-Risk Patients (6 to 64 Years) (2 of 2 - PCV) 04/26/2011 04/26/2010 Annual Physical 04/13/2024 04/13/2023 Influenza Adult (#1) 2024 06/17/2023, 05/19/2022, 03/26/2020, Additional history exists PHQ-2 (Physician [place]) 07/23/2024 11/12/2023 RSV Immunization or 60+ Years (1 - Risk 60-74 years 1-dose series) 11/11/2024 Postponed fro m 2020 (Going to Outside Clinic) Zoster Vaccines (1 of 2) 11/11/2024 Pos tponed from 2010 (Going to Outside Clinic) COVID-19 Vaccine ( season) 2025 05/03/2023, 04/11/2022, 05/25/2021, Additional history exists Postponed from 03/23/2024 (Future Appointment) Cervical Cancer Screening with HPV 06/06/2025 Postponed from 1990 (Future Appointment) Mammogram Screening 06/06/2025 Postpone d from 2000 (Patient Refused) Colorectal Cancer Screening FIT-DNA (3 Years) 05/13/2027 05/13/2024, 05/13/2024 DTaP, Tdap and Td Vaccines (3 - Td or Tdap) 11/19/2031 11/18/2021, 03/26/2020, 07/23/1998, Additional history exists Colorectal Cancer Screening FIT/FOBT (1 Year) Discontinued 07/29/2021 Hepatitis C Completed 04/10/2023 Meningococcal B Vaccine Aged Out No l onger eligible based on patient's age to complete this topic Meningococcal Vaccine Aged Out No petey tea eligible based on patient's age to complete this topic RSV Immunizations Under 20 Months Aged Out No longer eligible based on patient's age to complete this topic Procedures Procedure Name Priority Date/Time Associated Diagnosis Comments VITAMIN D, 25 OH Routine 06/09/2024 8:12 AM COMPENSATION MANAGER VITAMIN B-12 Routine 06/09/2024 8:12 AM COMPENSATION MANAGER TSH W/REFLEX Routine 06/09/2024 8:12 AM COMPENSATION MANAGER Benign hypertension with stage 3a chronic kidney disease (CMS/HCC HHS/HCC) Hyperlipidemia, unspecified hyperlipidemia type HEMOGLOBIN, GLYCOSYLATED Routine 06/09/2024 8:12 AM COMPENSATION MANAGER Prediabetes COMPREHENSIVE METABOLIC PANEL Routine 06/09/2024 8:12 AM COMPENSATION MANAGER Benign hypertension with stage 3a chronic kidney disease (CMS/HCC HHS/HCC) Hyperlipidemia, unspecified hyperlipidemia type CBC W/DIFF AUTOMATED Routine 06/09/2024 8:12 AM COMPENSATION MANAGER Benign hypertension with stage 3a chronic kidney disease (CMS/HCC HHS/HCC) Hyperlipidemia, unspecified hyperlipidemia type COLOGUARD (EXACT SCIENCE) Routine 05/13/2024 6:54 AM CDT Screening for malignant neoplasm of colon HEPATITIS C ANTIBODY W/RFX TO HCV RNA Routine 04/10/2023 7:37 AM CDT OCCULT BLOOD, FECES Routine 07/29/2021 7 :04 AM COMPENSATION MANAGER Diarrhea from Last 3 Months or Most Recently Relevant to Health Maintenance Results * TSH W/REFLEX (06/09/2024 8:12 AM COMPENSATION MANAGER) TSH 3.82 0.40 - 4.50 mIU/L [facility] 06/09/2024 8:12 AM COMPENSATION MANAGER 06/09/2024 8:13 AM COMPENSATION MANAGER Narrative Resulting Agency Comment Performing Organization Information: Site ID: [place] Name: [facility] Address: [address] [place] [address] Director: Issa Yanez MD Mykel Garcia DO LABORATORY Final Re sult [facility] [employer] [facility] [address] [place] [address], * (ABNORMAL) HEMOGLOBIN, GLYCOSYLATED (06/09/2024 8:12 AM COMPENSATION MANAGER) HGB A1C 6.4(H) <5.7 % of total Hgb [facility] [place] [place] Comment: For someone without known diabetes, a hemoglobin A1c value between 5.7% and 6.4% is consistent with prediabetes and should be confirmed with a follow-up test. For someone with known diabetes, a value <7% indicates that their diabetes is well controlled. A1c targets should be individualized based on duration of diabetes, age, comorbid conditions, and other considerations. This assay result is consistent with an increased risk of diabetes. Currently, no consensus exists regarding use of hemoglobin A1c for diagnosis of diabetes for children. 06/09/2024 8:12 AM COMPENSATION MANAGER 06/09/2024 8:13 AM COMPENSATION MANAGER Narrative Resulting Agency Comment Performing Organization Information: Site ID: [place] Name: [facility] Address: [address] [address] Director: Issa Yanez us Mykel P Luchtefeld DO LABORATORY Final Re sult Performing Organization Address [facility]/ZIP Co de Phone Number [facility] [employer] Maricruz SOUZA [employer] [address], * VITAMIN B-12 (06/09/2024 8:12 AM COMPENSATION MANAGER) VITAMIN B12 S/P/B 252 200 - 1,100 pg/mL [employer] [facility] Comment: Please Note: Although the reference range for vitamin B12 is 200-1100 pg/mL, it has been reported that between 5 and 10% of patients with values between 200 and 400 pg/mL may experience neuropsychiatric and hematologic abnormalities due to occult B12 deficiency; less than 1% of patients with values above 400 pg/mL will have symptoms. 06/09/2024 8:12 AM COMPENSATION MANAGER 06/09/2024 8:13 AM COMPENSATION MANAGER Narrative Resulting Agency Comment Performing Organization Information: Site ID: [place] Name: [facility] Address: [address] [place] [address] Director: Issa Yanez MD Mykel Garcia DO LABORATORY Final Re sult Performing Organization Address [facility] Co de Phone Number MEAGAN SOUZA [employer] [facility] [address] [place] [address], * (ABNORMAL) COMPREHENSIVE METABOLIC PANEL (06/09/2024 8:12 AM COMPENSATION MANAGER) Pathologist [facility] GLUCOSE 114(H) 65 - 99 mg/dL [employer] [facility] Comment: Fasting reference interval For someone without known diabetes, a glucose value between 100 and 125 mg/dL is consistent with prediabetes and should be confirmed with a follow-up test. BUN 12 7 - 25 mg/dL [employer] [facility] CREATININE S/P/B 1.04 0.50 - 1.05 mg/dL [employer] [facility] GFR ESTIMATE 60 > OR = 60 mL/min/1. 73m2 [employer] [facility] BUN CREATININE RATIO SEE NOTE: 6 - 22 (calc) [employer] [facility] Comment: Not Reported: BUN and Creatinine are within reference range. SODIUM S/P/B 139 135 - 146 mmol/L [employer] [facility] POTASSIUM S/P/B 4.5 3.5 - 5.3 mmol/L [employer] [place] CHLORIDE S/P/B 102 98 - 110 mmol/L [facility] [facility] [place] CO2 30 20 - 32 mmol/L [employer] [facility] [place] CALCIUM S/P/B 10.2 8.6 - 10.4 mg/dL [employer] [facility] TOTAL PROTEIN S/P/B 7.0 6.1 - 8.1 g/dL [employer] [place] ALBUMIN S/P/B 4.5 3.6 - 5.1 g/dL [employer] [facility] GLOBULIN 2.5 1.9 - 3.7 g/dL (calc) [facility] ALBUMIN/GLOBULI N RATIO 1.8 1.0 - 2.5 (calc) [facility] BILIRUBIN TOTAL S/P/B 0.8 0.2 - 1.2 mg/dL [employer] [facility] ALKALINE PHOSPHATASE S/P/B 100 37 - 153 U/L [facility] AST 14 10 - 35 U/L [facility] ALT 18 6 - 29 U/L [facility] 06/09/2024 8:12 AM COMPENSATION MANAGER 06/09/2024 8:13 AM COMPENSATION MANAGER Narrative Resulting Agency Comment Performing Organization Information: Site ID: [place] Name: [facility] Address: [address] [place] [address] Director: Issa Yanez MD Mykel Garcia DO LABORATORY Final Re sult MEAGAN [facility]OUZA [employer] [address] [place] [address], * CBC W/DIFF AUTOMATED (06/09/2024 8:12 AM COMPENSATION MANAGER) WBC 6.6 3.8 - 10.8 Thousand/u L [facility] RBC 4.82 3.80 - 5.10 Million/uL [facility] HGB 14.4 11.7 - 15.5 g/dL [facility] HCT 43.7 35.0 - 45.0 % [employer] [facility] MCV 90.7 80.0 - 100.0 fL [employer] [facility] [place] MCH 29.9 27.0 - 33.0 pg [facility] [place] MCHC 33.0 32.0 - 36.0 g/dL [facility] [place] Comment: For adults, a slight decrease in the calculated MCHC value (in the range of 30 to 32 g/dL) is most likely not clinically significant; however, it should be interpreted with caution in correlation with other red cell parameters and the patient's clinical condition. RDW 12.3 11.0 - 15.0 % [facility] [place] PLT 383 140 - 400 Thousand/u L [facility] [place] MPV 10.1 7.5 - 12.5 fL [facility] [place] ABS. NEUTROPHILS 3,887 1,500 - 7,800 cells/uL [facility] [place] ABS. LYMPHOCYTES 1,663 850 - 3,900 cells/uL [facility] [place] ABS. MONOCYTES 785 200 - 950 cells/uL [facility] [place] ABS. EOSINOPHILS 191 15 - 500 cells/uL [facility] [place] ABS. BASOPHILS 73 0 - 200 cells/uL [facility] [employer] [place] SEG NEUTROPHILS 58.9 % [facility] [place] LYMPHOCYTES 25.2 % [facility] [place] MONOCYTES 11.9 % [facility] [place] EOSINOPHILS 2.9 % [facility] [place] BASOPHILS 1.1 % [facility] [place] 06/09/2024 8:12 AM COMPENSATION MANAGER 06/09/2024 8:13 AM COMPENSATION MANAGER Narrative Resulting Agency Comment Performing Organization Information: Site ID: [place] Name: [facility] Address: [address] [place] [address] Director: Issa Yanez MD us Mykel Garcia DO LABORATORY Final Re sult [facility] [address] [address], [place] * (ABNORMAL) VITAMIN D, 25 OH (06/09/2024 8:12 AM COMPENSATION MANAGER) VITAMIN D 25 HYDROXY TOTAL S/P/B 21.6(L) >29.9 ng/mL [facility] Comment: This test was developed and its analytical performance characteristics have been determined by [employer] [facility]. It has not been cleared or approved by the U.S. Food and Drug Administration. This assay has been validated pursuant to the CLIA regulations and is used for clinical purposes. Vitamin D, 25-Hydroxy reports concentrations of two common forms, 25-OHD2 and 25-OHD3. 25-OHD3 indicates both endogenous production and supplementation. 25-OHD2 is an indicator of exogenous sources, such as diet or supplementation. Therapy is based on measurement of Total 25-OHD, with levels <20 ng/mL indicative of Vitamin D deficiency, while levels between 20 ng/mL and 30 ng/mL suggest insufficiency. Optimal levels are >=30 ng/mL. Vitamin D, 25-Hydroxy reports concentrations of two common forms, 25-OHD2 and 25-OHD3. 25-OHD3 indicates both endogenous production and supplementation. 25-OHD2 is an indicator of exogenous sources, such as diet or supplementation. Therapy is based on measurement of Total 25-OHD, with levels <20 ng/mL indicative of Vitamin D deficiency, while levels between 20 ng/mL and 30 ng/mL suggest insufficiency. Optimal levels are > or = 30 ng/mL. VITAMIN D 25 HYDROXY D3 S/P/B 21.6 ng/mL [email or web address] Comment: This test was developed and its analytical performance characteristics have been determined by [employer]. It has not been cleared or approved by the FDA. This assay has been validated pursuant to the CLIA regulations and is used for clinical purposes. VITAMIN D 25 HYDROXY D2 S/P/B <1.0 ng/mL [email or web address] Comment: This test was developed and its analytical performance characteristics have been determined by [employer]. It has not been cleared or approved by the FDA. This assay has been validated pursuant to the CLIA regulations and is used for clinical purposes. 06/09/2024 8:12 AM COMPENSATION MANAGER 06/09/2024 8:13 AM COMPENSATION MANAGER Narrative Resulting Agency Comment Performing Organization Information: Site ID: [id number] Name: [employer] Address: [address] [place] [address] [address] [place] [address] Director: Parminder Salcedo PhD,[facility] Mykel Garcia DO LABORATORY Final Re sult [facility] [address] [facility], [address] [place] [address], [place] * COLOGUARD (EXACT SCIENCE) (05/13/2024 6:54 AM CDT) COLOGUARD RESULT Negative Negative [employer] (CLIA #:[id number]) Comment: NEGATIVE TEST RESULT. A negative Cologuard result indicates a low likelihood that a colorectal cancer (CRC) or advanced adenoma (adenomatous polyps with more advanced pre-malignant features) is present. The chance that a person with a negative Cologuard test has a colorectal cancer is less than 1 in 1500 (negative predictive value >99.9%) or has an advanced adenoma is less than 5.3% (negative predictive value 94.7%). These data are based on a prospective cross-sectional study of 10,000 individuals at average risk for colorectal cancer who were screened with both Cologuard and colonoscopy. (Simon Reyes et al, N Engl J Med 2014;370(14):8390-1903) The normal value (reference range) for this assay is negative. COLOGUARD RE-SCREENING RECOMMENDATION: Periodic colorectal cancer screening is an important part of preventive healthcare for asymptomatic individuals at average risk for colorectal cancer. Following a negative Cologuard result, the [place] [employer] and U.S. Multi-Society Task Force screening guidelines recommend a Cologuard re-screening interval of 3 years. References: [place] [employer] Guideline for Colorectal Cancer Screening: https://www.cancer.org/cancer/axqxk-mcmqzb-pvgqsa/hbkroxmkd-sgqeyeknn-mhtingj/ac s-rec ommendations.html.; Manuel DK, Mele CR, Osmin HolmanK, Colorectal Cancer Screening: Recommendations for Physicians and Patients from the U.S. Multi-Society Task Force on Colorectal Cancer Screening , Am J Gastroenterology 2017; 112:9511-1185. TEST DESCRIPTION: Composite algorithmic analysis of stool DNA-biomarkers with hemoglobin immunoassay. Quantitative values of individual biomarkers are not reportable and are not associated with individual biomarker result reference ranges. Cologuard is intended for colorectal cancer screening of adults of either sex, 45 years or older, who are at average-risk for colorectal cancer (CRC). Cologuard has been approved for use by the U.S. FDA. The performance of Cologuard was established in a cross sectional study of average-risk adults aged 50-84. Cologuard performance in patients ages 45 to 49 years was estimated by sub-group analysis of near-age groups. Colonoscopies performed for a positive result may find as the most clinically significant lesion: colorectal cancer [4.0%], advanced adenoma (including sessile serrated polyps greater than or equal to 1cm diameter) [20%] or non- advanced adenoma [31%]; or no colorectal neoplasia [45%]. These estimates are derived from a prospective cross-sectional screening study of 10,000 individuals at average risk for colorectal cancer who were screened with both Cologuard and colonoscopy. (Simon Agarwal al, N Engl J Med 2014;370(14):4462-6233.) Cologuard may produce a false negative or false positive result (no colorectal cancer or precancerous polyp present at colonoscopy follow up). A negative Cologuard test result does not guarantee the absence of CRC or advanced adenoma (pre-cancer). The current Cologuard screening interval is every 3 years. ([place] Cancer Society and U.S. Multi-Society Task Force). Cologuard performance data in a 10,000 patient pivotal study using colonoscopy as the reference method can be accessed at the following location: [email or web address].[email or web address]/results. Additional description of the Cologuard test process, warnings and precautions can be found at [email or web address].[email or web address]. STOOL STOOL SPECIMEN / Unknown 05/13/2024 6:54 AM CDT 05/14/2024 10:16 AM CDT us Mykel Garcia DO BODY FLUIDS AND STOOLS O RDERABLES Final Result [employer] ([facility]) [address] [place] [address], [email or web address] (CLIA #:[id number]) [address] [place] [address] * HEPATITIS C ANTIBODY W/RFX TO HCV RNA (04/10/2023 7:37 AM CDT) HEPATITIS C AB NON-REACT QUAN NON-REACT QUAN [facility] Comment: HCV antibody was non-reactive. There is no laboratory evidence of HCV infection. In most cases, no further action is required. However, if recent HCV exposure is suspected, a test for HCV RNA (test code 64582) is suggested. For additional information please refer to http://education.BalconyTV/faq/NBM79k8 (This link is being provided for informational/ educational purposes only.) 04/10/2023 7:37 AM CDT 04/10/2023 7:40 AM CDT Narrative Resulting Agency Comment Performing Organization Information: Site ID: [place] Name: [facility] Address: [address] [place] [id number] Director: Issa Yanez MD us Mykel Garcia DO LABORATORY Final Re sult Performing Organization Address City/[facility]/ZIP Co de Phone Number [facility] - DANI SOUZA [id number] [address] [id number] * OCCULT BLOOD, FECES (CARD PERFORMED BY LAB) (07/29/2021 7:04 AM COMPENSATION MANAGER) Pathologist [facility] OCCULT BLOOD FECAL 0.9 LESS THAN 3.0 mg Hgb Eq/g [facility], Comment: This test was developed and its analytical performance characteristics have been determined by [facility]. It has not been cleared or approved by FDA. This assay has been validated pursuant to the CLIA regulations and is used for clinical purposes. STOOL SPECIMEN / Unknown 07/29/2021 7:04 AM COMPENSATION MANAGER 07/29/2021 7:06 AM COMPENSATION MANAGER Mykel Garcia DO BODY FLUIDS AND STOOLS O RDERABLES Final Result [facility] - DANI ORDERS [facility] [place], [address] [facility] [address] from Last 3 Months or Most Recently Relevant to Health Maintenance Insurance [employer] Care Teams Configuration Analyst Relationship Specialty Start Date End Date Mykel Garcia DO [address] [place] [address] [id number] PCP - General FAMILY PRACTICE 03/26/20
--- OUTSIDE RECORDS SUMMARY | 2024-08-29 12:07 | XMS_ITS | Encounter Summary ---
Author Organization [facility] Address [address] [place] [address] Care Team Providers Care Geological E Logger Name Role Phone Chance Medellin MD Primary Care Provider [phone] Encounter Details Date Type Department Care Team (Late st Contact Info) Description 02/07/2002 Outpatient Historical [facility] Internal Medicine [facility] [address] [facility] [address] [place] [address] Niesha Arevalo MD [address] [place] [address] Social History Tobacco Use Types Packs/Day Years Used Date Smoking Tobacco: Never Assessed Comments Unknown Sex and Gender Information Value Date Recorded Sex Assigned at Not on file Legal Sex Female 4:22 AM SOCIAL WORK NURSE Gender Identity Not on file Sexual Orientation Not on file documented as of this encounter Plan of Treatment Not on file documented as of this encounter Visit Diagnoses Not on filedocumented in this encounter Care Teams Geological E Logger Relationship Specialty Start Date End Date Chance Medellin MD [address] [facility] [address] [place] [phone] PCP - General Internal Medicine 04/28/16 documented as of this encounter
--- OUTSIDE RECORDS SUMMARY | 2024-08-29 12:07 | XMS_ITS | Encounter Summary ---
Author Organization [facility] Address [address] [place] [address] Care Team Providers Care Ropeman Name Role Phone Chance Medellin MD Primary Care Provider [phone] Encounter Details Date Type Department Care Team (Late st Contact Info) Description 09/14/2003 Outpatient Historical [facility] [address] [place] [address] Nohemy Benitez MD [address] [facility] [address] [place] [address] Social History Tobacco Use Types Packs/Day Years Used Date Smoking Tobacco: Never Assessed Comments Unknown Sex and Gender Information Value Date Recorded Sex Assigned at Not on file Legal Sex Female 4:22 AM IP PARALEGAL Gender Identity Not on file Sexual Orientation Not on file documented as of this encounter Plan of Treatment Not on file documented as of this encounter Visit Diagnoses Not on filedocumented in this encounter Care Teams Ropeman Relationship Specialty Start Date End Date Chance Medellin MD [address] [facility] [address] [place] [address] PCP - General Internal Medicine 04/28/16 documented as of this encounter
--- OUTSIDE RECORDS SUMMARY | 2024-08-29 12:07 | XMS_ITS | Encounter Summary ---
Author Organization [employer] [facility] Address [address] [place] [address] Care Team Providers Care It Analyst Name Role Phone Chance Medellin MD Primary Care Provider [phone] Encounter Details Date Type Department Care Team (Latest Contact Info) Description 09/14/2003 Outpatient Historical [facility] Nohemy Benitez MD [address] [facility] [address] [place] [address] ABNORMAL ELECTROENCEPHALOGRAM (Primary Dx) Social History Tobacco Use Types Packs/Day Years Used Date Smoking Tobacco: Never Assessed Comments Unknown Sex and Gender Information Value Date Recorded Sex Assigned at Not on file Legal Sex Female 4:22 AM OFFSET PRINTER Gender Identity Not on file Sexual Orientation Not on file documented as of this encounter Plan of Treatment Not on file documented as of this encounter Visit Diagnoses Diagnosis Nonspecific abnormal electroencephalogram (EEG)- Primary documented in this encounter Care Teams It Analyst Relationship Specialty Start Date End Date Chance Medellin MD [address] [facility] [address] [place] [phone] PCP - General Internal Medicine 04/28/16 documented as of this encounter
--- OUTSIDE RECORDS SUMMARY | 2024-08-29 12:07 | XMS_ITS | Encounter Summary ---
Author Organization [facility] Address [address] [place] [address] Care Team Providers Care Director Compliance Name Role Phone Chance Medellin MD Primary Care Provider Encounter Details Date Type Department Care Team (Late st Contact Info) Description 02/01/2001 Outpatient Historical [facility] Internal Medicine [facility] [address] [facility] [address] [place] [address] Niesha Arevalo MD [address] [place] [address] Social History Tobacco Use Types Packs/Day Years Used Date Smoking Tobacco: Never Assessed Comments Unknown Sex and Gender Information Value Date Recorded Sex Assigned at Not on file Legal Sex Female 4:22 AM CRM TECHNICAL LEAD Gender Identity Not on file Sexual Orientation Not on file documented as of this encounter Plan of Treatment Not on file documented as of this encounter Visit Diagnoses Not on filedocumented in this encounter Care Teams Director Compliance Relationship Specialty Start Date End Date Chance Medellin MD [address] [facility] [address] [place] [phone] PCP - General Internal Medicine 04/28/16 documented as of this encounter
--- OUTSIDE RECORDS SUMMARY | 2024-08-29 12:07 | XMS_ITS | Encounter Summary ---
Author Organization [employer] Address [address] [place] [address] Care Team Providers Care Dial Lathe Operator Name Role Phone Chance Medellin MD Primary Care Provider [phone] Encounter Details Date Type Department Care Team (Late st Contact Info) Description 03/15/2000 Outpatient Historical Division of Neurology [address] [facility] [address] [address] Nohemy Benitez MD [address] [facility] [address] [place] [address] Social History Tobacco Use Types Packs/Day Years Used Date Smoking Tobacco: Never Assessed Comments Unknown Sex and Gender Information Value Date Recorded Sex Assigned at Not on file Legal Sex Female 4:22 AM HYDRAULIC BLOCKER Gender Identity Not on file Sexual Orientation Not on file documented as of this encounter Plan of Treatment Not on file documented as of this encounter Visit Diagnoses Not on filedocumented in this encounter Care Teams Dial Lathe Operator Relationship Specialty Start Date End Date Chance Medellin MD [address] [facility] [address] [place] [address] PCP - General Internal Medicine 04/28/16 documented as of this encounter
--- OUTSIDE RECORDS SUMMARY | 2024-08-29 12:07 | XMS_ITS | Encounter Summary ---
Author Organization [facility] Address [address] [place] [address] Care Team Providers Care Professor Of Finance Name Role Phone Chance Medellin MD Primary Care Provider [phone] Encounter Details Date Type Department Care Team (Late st Contact Info) Description 02/06/2000 Outpatient Historical [facility] Internal Medicine [facility] [address] [facility] [address] [place] [address] Niesha Arevalo MD [address] [place] [address] Social History Tobacco Use Types Packs/Day Years Used Date Smoking Tobacco: Never Assessed Comments Unknown Sex and Gender Information Value Date Recorded Sex Assigned at Not on file Legal Sex Female 4:22 AM LENS POLISHER HAND Gender Identity Not on file Sexual Orientation Not on file documented as of this encounter Plan of Treatment Not on file documented as of this encounter Visit Diagnoses Not on filedocumented in this encounter Care Teams Professor Of Finance Relationship Specialty Start Date End Date Chance Medellin MD [address] [facility] [address] [place] [phone] PCP - General Internal Medicine 04/28/16 documented as of this encounter
--- OUTSIDE RECORDS SUMMARY | 2024-08-29 12:07 | XMS_ITS | Encounter Summary ---
Author Organization [facility] Address [address] [place] [address] Care Team Providers Care Director Teen Post Name Role Phone Mykel Garcia DO Primary Care Provider + Reason for Referral * Imaging (Emergency) - Authorized Specialty Diagnoses / Procedures Referred By Yueac prince Referred To Contact RADIOLOGY Diagnoses Pain and swelling of right lower leg Procedures [facility] KENYON DUPLEX LOW EXT RT Mykel Garcia DO [address] [place] [address] Phone: tel: fax: [place] [address] Phone: tel: fax: Referral ID Status Reason Start Date Expiration Date V isits Requested Visits Authorized [id number] Authorized 08/29/2024 08/29/2025 1 1 FORCE DEVELOPMENT SPECIALIST Reason for Visit * Reason Comments Leg Pain Pt admits to the cornelia n starting about 8pm last night. She admits that now it is not hurting as bad, it only hurts when touched or or bumped. She is worried due to her blood clot disorder and wants to make sure she is ok.Wants to discuss vaccines before getting the flu and pneumonia Encounter Details Date Type Department Care Team ([facility] Contact Info) Description 08/29/2024 10:00 AM WORKFORCE DEVELOPMENT SPECIALIST Office Visit [facility] Family & Internal Medicine [address] [place] [place] [phone] Mykel Garcia DO [facility] [place] [address] Leg Pain (Pt admits to the pain starting about 8pm last night. She admits that now it is not hurting as bad, it only hurts when touched or or bumped. She is worried due to her blood clot disorder and wants to make sure she is ok.//Wants to discuss vaccines before getting the flu and pneumonia ) Social History Tobacco Use Types Packs/Day Years Used Date Smoking Tobacco: Never Passive Smoke Exposure: Never Smokeless Tobacco: Never Alcohol Use Standard Drinks/Week Comments Never 0 [...] Comments Blood Pressure 124/70 08/29/2024 10:10 AM WORKFORCE DEVELOPMENT SPECIALIST Pulse 74 08/29/2024 10:10 AM WORKFORCE DEVELOPMENT SPECIALIST Temperature 35.9 C (96.6 F) 08/29/2024 10:10 AM WORKFORCE DEVELOPMENT SPECIALIST Respiratory Rate 16 08/29/2024 10:10 AM WORKFORCE DEVELOPMENT SPECIALIST Oxygen Saturation 98% 08/29/2024 10:10 AM WORKFORCE DEVELOPMENT SPECIALIST Inhaled Oxygen Concentration - - Weight 96.6 kg (213 lb) 08/29/2024 10:10 AM WORKFORCE DEVELOPMENT SPECIALIST Height 170.2 cm (5' 7 ) 08/29/2024 10:10 AM WORKFORCE DEVELOPMENT SPECIALIST Body Mass Index 33.36 08/29/2024 10:10 AM WORKFORCE DEVELOPMENT SPECIALIST documented in this encounter Progress Notes * Mykel Garcia DO - 08/29/2024 10:00 AM CST Images from the original note were not included. GENERAL OFFICE VISIT Encounter Date: 08/29/2024 Chief Complaint: 63-year-old female presents for Leg Pain (Pt admits to the pain starting about 8pm last night. She admits that now it is not hurting as bad, it only hurts when touched or or bumped. She is worried due to her blood clot disorder and wants to make sure she is ok.//Wants to discuss vaccines before getting the flu and pneumonia ) HPI: Pt presents for leg pain. Pt noted pain yesterday. It did seem to improve mildly since yesterday. The pain was a 7-810 when it happened. She has a known hypercoaguable issues. Pt has no major swelling. Pt did have numbness in the area. Pt notes pain on both sides today, more consistent with radicular pain. Review of Systems Constitutional: Negative for fever. Respiratory: Negative for shortness of breath. Cardiovascular: Negative for chest pain. 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 ([facility] HHS/HCC) Hiatal hernia Hypertension Vitamin D deficiency Fatigue Chronic kidney disease, stage II (mild) Family history of cardiovascular disease H/O prothrombin mutation Hyperlipidemia Neurogenic bladder Cobalamin deficiency Primary hypercoagulable state ([facility]/HCC HHS/HCC) Sleep disturbance Chronic cough Demyelinating disease of central nervous system ([facility]/HCC HHS/HCC) Prediabetes Stage 3a chronic kidney disease (CKD) ([facility]/HCC HHS/HCC) Benign hypertension with stage 3a chronic kidney disease ([facility]/HCC HHS/HCC) Esophageal stricture Past Medical History: Diagnosis Date Asthma (HHS/HCC) Cataract Chronic GERD Chronic kidney disease CKD (chronic kidney disease) Hyperlipidemia Hypertension Neuromuscular disorder ([facility]/HCC HHS/HCC) Vitamin D deficiency Past Surgical History: Procedure Laterality Date CHOLECYSTECTOMY 1992 Family History Problem Relation Name Age of Onset Diabetes Mother Chen Thyroid Disease Mother Chen Hypertension Mother Chen Lung Cancer Father Franklyn Glaucoma Father Franklyn Cancer Father Franklyn Lung Glaucoma Sister Thyroid Disease Sister Aneurysm Brother cerebral Early Brother Franklyn JR Cerebral aneurysm Social History Tobacco Use Smoking status: Never Passive exposure: Never Smokeless tobacco: Never Vaping Use Vaping status: Never Used Substance Use Topics Alcohol use: Never Drug use: Never Immunization History Administered Date(s) Administered Fluzone 6 Months+ Quad (0.5 mL Prefilled Syringe) 03/26/2020 H1N1 Injectable 2009 Influenza 07/23/2009 Influenza (Generic) 06/30/2009, 04/26/2010, 07/23/2013, 05/05/2016, 06/26/2017 Influenza Adult (Generic) 07/23/2013, 05/05/2016, 06/26/2017, 05/19/2022, 06/17/2023 CNS Response ([employer]) COVID-19 AD26 VACCINE 0.5 ML IM SUSP 09/27/2020 MODERNA COVID-19 (12+) MRNA, LNP-S, PF, 100 MCG/ 0.5 ML DOSE 05/25/2021 PFIZER COVID-19 (12+) MRNA, LNP-S, PF, SARITHA-SUCROSE, 30 MCG/0.3 ML (COMIRNATY) 05/03/2023 PFIZER COVID-19 BIVALENT (12+) mRNA, LNP-S, PF, 30 MCG/0.3 ML DOSE 04/11/2022 Pneumococcal (Pneumovax 23) 04/26/2010 Tdap (Generic) 11/18/2021 Tdap (Historical Only-select from [employer]) 03/26/2020 Tetanus Diptheria 07/23/1998 Tetanus Toxoid Inj 07/23/1998 Current Outpatient Medications Medication Sig Dispense Refill albuterol sulfate HFA (VENTOLIN HFA) 108 (90 Base) MCG/ACT inhaler Inhale 2 puffs into the lungs every 4 (four) hours as needed for Wheezing. 18 g 2 aspirin EC 81 MG tablet Take 1 tablet (81 mg total) by mouth daily. atorvastatin (LIPITOR) 10 MG tablet TAKE 1 TABLET BY MOUTH EVERY DAY 90 tablet 1 cetirizine (ZYRTEC ALLERGY) 10 MG tablet Take 1 tablet (10 mg total) by mouth daily. 90 tablet 3 Cholecalciferol (VITAMIN D) 50 MCG (2000 UT) Tab Take 1 tablet by mouth daily. 90 tablet 3 dilTIAZem ER 240 MG 24 hr capsule Take 1 capsule (240 mg total) by mouth daily. (Patient taking differently: Take 1 capsule (240 mg total) by mouth 2 (two) times a day.) 90 capsule 0 doxazosin (CARDURA) 2 MG tablet Take 1 tablet (2 mg total) by mouth nightly at bedtime. 90 tablet 0 enalapril (VASOTEC) 20 MG tablet Take 1 tablet (20 mg total) by mouth 2 (two) times daily. 90 tablet 0 fluticasone-salmeterol (ADVAIR DISKUS) 100-50 MCG/ACT inhaler Inhale 1 puff into the lungs 2 (two) times daily. 60 each 1 methylphenidate (RITALIN) 10 MG tablet Take 1 tablet (10 mg total) by mouth daily. 30 tablet 0 omeprazole (PRILOSEC) 20 MG capsule TAKE 1 CAPSULE BY MOUTH EVERY DAY 90 capsule 1 vitamin B-12 (CYANOCOBALAMIN) (CYANOCOBALAMIN) 1000 mcg tablet Take 1 tablet (1,000 mcg total) by mouth daily. 90 tablet 3 No current facility-administered medications for this visit. Review of patient's allergies indicates: Allergen Reactions Iodinated Contrast Media Hives and Unknown Chlorthalidone Unknown and Rash Iodine Hives, Itching and Rash Metoclopramide Other (see comment), Unknown and Hallucinations Naproxen Swelling and Unknown Tape Unknown, Rash and Other (see comment) Skin comes off Iohexol Hives Objective: Filed Vitals: 08/29/24 1010 BP: 124/70 Pulse: 74 Resp: 16 Temp: 96.6 ??F (35.9 ??C) TempSrc: Skin SpO2: 98% Weight: 96.6 kg (213 lb) Height: 1.702 m (5' 7 ) Physical Exam Vitals and nursing note reviewed. HENT: Head: Normocephalic and atraumatic. Right Ear: External ear normal. Left Ear: External ear normal. Eyes: Conjunctiva/sclera: Conjunctivae normal. Cardiovascular: Rate and Rhythm: Normal rate and regular rhythm. Heart sounds: Normal heart sounds. No murmur heard. No friction rub. No gallop. Pulmonary: Effort: Pulmonary effort is normal. No respiratory distress. Breath sounds: Normal breath sounds. No wheezing or rales. Skin: Comments: No rash noted; area of concern on RLE, lateral calf is TTP and has some mild swelling in the area without notable erythema, 16 inch leg circumference B/L Neurological: Mental Status: She is alert. Assessment & Plan: Lisa was seen today for leg pain. Diagnoses and all orders for this visit: Pain and swelling of right lower leg - USV KENYON DUPLEX LOW EXT RT; Future Discussion/Summary: Likely musculoskeletal, but given pt's personal history and symptoms, will order ultrasound stat today to further evaluate at [facility]. Pt wishes to treat conservatively if it is negative. F/u with regular visits if negative. Pt v/u. Mykel Garcia DO FORCE DEVELOPMENT SPECIALIST documented in this encounter Plan of Treatment Scheduled Orders Name Type Priority Associated Diagnoses Orde r Schedule USV KENYON DUPLEX LOW EXT RT US VASC STAT Pain and swelling of right lower leg Expected: 08/29/2024, Expires: 08/29/2025 documented as of this encounter Visit Diagnoses Diagnosis Pain and swelling of right lower leg- Primary documented in this encounter Additional Health Concerns Assessment Noted Time PHQ-9 Depression Total Score: 3 06/03/20 21 8:34 AM WORKFORCE DEVELOPMENT SPECIALIST documented as of this encounter Care Teams Director Teen Post Relationship Specialty Start Date End Date Mykel Garcia DO [address] [place] [address] PCP - General FAMILY PRACTICE 03/26/20 documented as of this encounter
--- OUTSIDE RECORDS SUMMARY | 2024-08-29 12:07 | XMS_ITS | Encounter Summary ---
Author Organization [employer] [facility] Address [address] [place] [address] Care Team Providers Care Manufacturing Assistant Name Role Phone Chance Medellin MD Primary Care Provider [phone] Encounter Details Date Type Department Care Team (Late st Contact Info) Description 09/21/2003 Outpatient Historical [facility] MRI DEPT Nohemy Benitez MD [address] [facility] [address] [place] [address] SPINAL CORD DISEASE NOS (CMS/HCC) (Primary Dx) Social History Tobacco Use Types Packs/Day Years Used Date Smoking Tobacco: Never Assessed Comments Unknown Sex and Gender Information Value Date Recorded Sex Assigned at Not on file Legal Sex Female 4:22 AM LAP MACHINE OPERATOR Gender Identity Not on file Sexual Orientation Not on file documented as of this encounter Plan of Treatment Not on file documented as of this encounter Visit Diagnoses Diagnosis Unspecified disease of spinal cord (CMS/HCC)- Primary Unspecified disease of spinal cord documented in this encounter Care Teams Manufacturing Assistant Relationship Specialty Start Date End Date Chance Medellin MD [address] [facility] [address] [place] [address] PCP - General Internal Medicine 04/28/16 documented as of this encounter
--- OUTSIDE RECORDS SUMMARY | 2024-08-29 12:07 | XMS_ITS | Encounter Summary ---
Author Organization [facility] Address [address] [place] [address] Care Team Providers Care Corrosion Technician Name Role Phone Chance Medellin MD Primary Care Provider [phone] Encounter Details Date Type Department Care Team (Late st Contact Info) Description 05/06/2005 Outpatient Historical [facility] Meera Crooks Er, Authorized P NO ADDRESS ON FILE UNSPECIFIED VIRAL INFECTION (Primary Dx) Social History Tobacco Use Types Packs/Day Years Used Date Smoking Tobacco: Never Assessed Comments Unknown Sex and Gender Information Value Date Recorded Sex Assigned at Not on file Legal Sex Female 4:22 AM RAILROAD AUDITOR Gender Identity Not on file Sexual Orientation Not on file documented as of this encounter Plan of Treatment Not on file documented as of this encounter Procedures Procedure Name Priority Date/Time Associated Diagnosis Comments URINALYSIS W/REFLEX MICROSCOPIC Routine 05/06/2005 10:44 AM CDT ED HOLD Routine 05/06/2005 10:31 AM CDT CBC WITH DIFFERENTIAL Routine 05/06/2005 10:31 AM CDT CBC WITH DIFFERENTIAL Routine 05/06/2005 10:31 AM CDT documented in this encounter Results * (ABNORMAL) URINALYSIS (05/06/2005 10:44 AM CDT) COLOR UA Yellow INTERFACE SYSTEM CLARITY UA Clear Clear INTERFACE SYSTEM SPECIFIC GRAVITY UA 1.010 1.001 - 1.035 INTERFACE SYSTEM PH UA 6.0 5.0 - 8.0 INTERFACE SYSTEM LEUKOCYTE ESTERASE UA Negative Negative INTERFACE SYSTEM NITRITE UA Negative Negative INTERFACE SYSTEM PROTEIN UA Negative Negative INTERFACE SYSTEM GLUCOSE UA Negative Negative INTERFACE SYSTEM KETONES UA 1+(A) Negative INTERFACE SYSTEM UROBILINOGEN UA 2(H) <=1 mg/dL INTE RFACE SYSTEM BILIRUBIN UA Negative Negative INTERFA CE SYSTEM BLOOD UA Negative Negative INTERFACE SYSTEM 05/06/2005 10:4 4 AM CDT Meera Crooks URINE ORDERABLES Final Result Performing Organization Address [facility] Phone Number INTERFACE SYSTEM Refer to clinic/hospital department * ED HOLD (05/06/2005 10:31 AM CDT) SPECIMEN HOLD, BLOOD 7 days INTERFACE SYSTEM 05/06/2005 10:3 1 AM CDT Meera Brarjoe CHEMISTRY ORDERABLES Final Resul t Performing Organization Address [facility] Phone Number INTERFACE SYSTEM Refer to clinic/hospital department * (ABNORMAL) CBC WITH DIFFERENTIAL (05/06/2005 10:31 AM CDT) NEUTROPHILS 78(H) 45 - 70 % INTERFAC E SYSTEM LYMPHOCYTES 6(L) 16 - 45 % INTERFAC E SYSTEM MONOCYTES 14(H) 3 - 13 % INTERFACE SYSTEM EOSINOPHILS 2 0 - 7 % INTERFAC E SYSTEM BASOPHILS 0 0 - 2 % INTERFACE SYSTEM NEUTROPHIL ABSOLUTE 7.24(H) 1.90 - 7.00 K/uL INTERFACE SYSTEM LYMPHOCYTE ABSOLUTE 0.57(L) 0.70 - 4.50 K/uL INTERFACE SYSTEM MONOCYTE ABSOLUTE 1.31(H) 0.10 - 1.30 K/uL INTERFACE SYSTEM EOSINOPHIL ABSOLUTE 0.19 0.00 - 0.70 K/uL INTERFACE SYSTEM BASOPHILS ABSOLUTE 0.03 0.00 - 0.20 K/uL INTERFACE SYSTEM 05/06/2005 10:3 1 AM CDT Meera Brarjoe HEMATOLOGY ORDERABLES Final Resu lt Performing Organization Address [facility] Phone Number INTERFACE SYSTEM Refer to clinic/hospital department * CBC WITH DIFFERENTIAL (05/06/2005 10:31 AM CDT) WBC 9.3 4.0 - 9.8 K/uL INTERFACE SYSTEM RBC 4.67 3.90 - 4.90 M/uL INTERFACE SYSTEM HEMOGLOBIN 14.2 11.8 - 14.8 g/dL INTERFACE SYSTEM HEMATOCRIT 41.0 35.5 - 44.0 % INTERFACE SYSTEM MCV 87.8 82.0 - 99.0 fL INTERFACE SYSTEM MCH 30.4 27.2 - 32.6 pg INTERFACE SYSTEM MCHC 34.6 31.5 - 35.5 % INTERFACE SYSTEM RDW 12.1 11.5 - 14.5 % INTERFACE SYSTEM RDW-STDEV 38.7 37.1 - 48.7 fL INTERFACE SYSTEM PLATELETS 304 140 - 350 K/uL INTERFACE SYSTEM MPV 10.3 9.3 - 12.4 fL INTERFACE SYSTEM 05/06/2005 10:3 1 AM CDT Meera Crooks HEMATOLOGY ORDERABLES Final Resu lt INTERFACE SYSTEM Refer to clinic/hospital department documented in this encounter Visit Diagnoses Diagnosis Unspecified viral infection, in conditions classified elsewhere and of unspecified site- Primary documented in this encounter Care Teams Corrosion Technician Relationship Specialty Start Date End Date Chance Medellin MD [address] [facility] [address] [place] [address] PCP - General Internal Medicine 04/28/16 documented as of this encounter
--- OUTSIDE RECORDS SUMMARY | 2024-08-29 12:07 | XMS_ITS | Encounter Summary ---
Author Organization [facility] Address [address] [place] [address] Care Team Providers Care Associate Sales Manager Name Role Phone Chance Medellin MD Primary Care Provider [phone] Encounter Details Date Type Department Care Team (Late st Contact Info) Description 02/07/2005 Outpatient Historical Division of Neurology [address] [address] Nohemy Benitez MD [address] [facility] [address] [place] [address] Social History Tobacco Use Types Packs/Day Years Used Date Smoking Tobacco: Never Assessed Comments Unknown Sex and Gender Information Value Date Recorded Sex Assigned at Not on file Legal Sex Female 4:22 AM CARDIAC CATH LAB RADIOLOGY TECHNOLOGIST Gender Identity Not on file Sexual Orientation Not on file documented as of this encounter Plan of Treatment Not on file documented as of this encounter Visit Diagnoses Not on filedocumented in this encounter Care Teams Associate Sales Manager Relationship Specialty Start Date End Date Chance Medellin MD [address] [facility] [address] [place] [address] PCP - General Internal Medicine 04/28/16 documented as of this encounter
--- OUTSIDE RECORDS SUMMARY | 2024-08-29 12:07 | XMS_ITS | Encounter Summary ---
Author Organization [facility] Address [address] [place] [address] Care Team Providers Care Ribbon Inker Name Role Phone Chance Medellin MD Primary Care Provider [phone] Encounter Details Date Type Department Care Team (Latest Contact Info) Description 02/04/2008 Outpatient Historical [facility], [address] Franklyn Tolbert MD [address] [facility] [address] [address] Unspecified Essential Hypertension Social History Tobacco Use Types Packs/Day Years Used Date Smoking Tobacco: Never Alcohol Use Standard Drinks/Week Comments No 0 (1 standard drink = 0.6 oz pur e alcohol) Comments No Sex and Gender Information Value Date Recorded Sex Assigned at Not on file Legal Sex 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
--- OUTSIDE RECORDS SUMMARY | 2024-08-29 12:07 | XMS_ITS | Encounter Summary ---
Author Organization [facility] Address [address] [place] [address] Care Team Providers Care Louver Mortiser Operator Name Role Phone Chance Medellin MD Primary Care Provider [phone] Encounter Details Date Type Department Care Team (Late st Contact Info) Description 12/21/2000 Outpatient Historical [facility] Internal Medicine [facility] [address] [facility] [address] [place] [address] Niesha Arevalo MD [address] [place] [address] Social History Tobacco Use Types Packs/Day Years Used Date Smoking Tobacco: Never Assessed Comments Unknown Sex and Gender Information Value Date Recorded Sex Assigned at Not on file 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
--- OUTSIDE RECORDS SUMMARY | 2024-08-29 12:07 | XMS_ITS | Encounter Summary ---
Author Organization [facility] Address [address] [place] [address] Care Team Providers Care Ssis Architect Name Role Phone Chance Medellin MD Primary Care Provider [phone] Encounter Details Date Type Department Care Team (Late st Contact Info) Description 06/26/2001 Outpatient Historical [facility] Internal Medicine [facility] [address] [facility] [address] [place] [address] Niesha Arevalo MD [address] [place] [address] Social History Tobacco Use Types Packs/Day Years Used Date Smoking Tobacco: Never Assessed Comments Unknown Sex and Gender Information Value Date Recorded Sex Assigned at Not on file 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
--- OUTSIDE RECORDS SUMMARY | 2024-08-29 12:07 | XMS_ITS | Encounter Summary ---
Author Organization [facility] Address [address] [place] [address] Care Team Providers Care Network Control Technician Name Role Phone Chance Medellin MD Primary Care Provider [phone] Encounter Details Date Type Department Care Team (Late st Contact Info) Description 08/07/2001 Outpatient Historical [facility] Internal Medicine [facility] [address] [facility] [address] [place] [address] Niesha Arevalo MD [address] [place] [address] Social History Tobacco Use Types Packs/Day Years Used Date Smoking Tobacco: Never Assessed Comments Unknown Sex and Gender Information Value Date Recorded Sex Assigned at Not on file 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
--- OUTSIDE RECORDS SUMMARY | 2024-08-29 12:07 | XMS_ITS | Encounter Summary ---
Author Organization [facility] Address [address] [place] [address] Care Team Providers Care Dental Instructor Name Role Phone Chance Medellin MD Primary Care Provider [phone] Encounter Details Date Type Department Care Team (Late st Contact Info) Description 02/06/2008 Outpatient Historical [facility], [address] Aster Champagne MD [address] [place] [address] [address] [place] [address] Social History Tobacco Use Types Packs/Day Years Used Date Smoking Tobacco: Never Alcohol Use Standard Drinks/Week Comments No 0 (1 standard drink = 0.6 oz pur e alcohol) Comments No Sex and Gender Information Value Date Recorded Sex Assigned at Not on file 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 Gender Identity Not on file Sexual Orientation Not on file documented as of this encounter Plan of Treatment Not on file documented as of this encounter Procedures Procedure Name Priority Date/Time Associated Diagnosis Comments PATHOLOGY Routine 02/06/2008 2:02 PM CDT documented in this encounter Results * PATHOLOGY (02/06/2008 2:02 PM CDT) FINAL REPORT [place] [address] [place], [place] [address] Patient: LUDA PEREZ : 1960 Procedure Date: 02/06/2008 Accession Date: 02/06/2008 Case No: [id number] Ordering Dr: ASTER CHAMPAGNE Case types AW, BW, FW, NW and SH are performed by [facility], [place], [place] SURGICAL PATHOLOGY & NON-GYNECOLOGIC CYTOPATHOLOGY REPORT DIAGNOSIS ESOPHAGUS, DISTAL, BIOPSY: - CHRONIC CARDITIS. Specimen Description: Distal esophagus. Operative Procedure: EGD. Patient Information/Histor y/Diagnosis: Erosive esophagitis. Probable GERD. Benign appearance. Rule out malignancy. Gross: The specimen is received in a container labeled jhoana Jo esophagus. It consists of three pieces of red-haile tissue ranging from 0.1 to 0.2 cm in greatest dimension. The specimen is submitted entirely labeled A1. KLA/LKP 02.06.2008 05:51 pm Microscopic: The slides are labeled [id number] and Luda Perez. The biopsy consists of a small amount of esophageal squamous mucosa with contiguous gastric cardiac-type mucosa. The squamous mucosa shows no significant reactive changes or intraepithelial inflammation. The gastric cardiac-type mucosa contains chronic inflammation in the lamina propria. No specialized metaplastic columnar mucosa of Diego type is identified. The histologic pattern is compatible with chronic carditis. GL/TMZ 02.07.2008 01:34 pm Staging Form: No. ELECTRONIC SIGNATURE FOR TYSHAWN KEE M.D.- 02/07/08 02:08 pm INTERFACE SYSTEM 02/06/2008 2:02 PM CDT Aster Champagne MD PATHOLOGY/CYTOLOGY ORDERABLES Final Result INTERFACE SYSTEM Refer to clinic/hospital department documented in this encounter Visit Diagnoses Not on filedocumented in this encounter Care Teams Dental Instructor Relationship Specialty Start Date End Date Chance Medellin MD [address] [facility] [address] [place] [phone] PCP - General Internal Medicine 04/28/16 documented as of this encounter
--- OUTSIDE RECORDS SUMMARY | 2024-08-29 12:07 | XMS_ITS | Referral Summary ---
Author Organization [facility] Address [address] [place] [address] Care Team Providers Care Blood Bank Booking Clerk Name Role Phone Nina Contreras MD Primary Care Provider [phone] Hussein Mcghee MD Unavailable [phone] Kenyon Morgan MD Unavailable [phone] Source Comments [facility] [place],non-owned Affiliates and Associated Physician Practices is amultiple site organization consisting of ambulatory clinics and hospital sitesin [place], [place], [place] and [place]. This disclosure is being madepursuant to the Care Everywhere program and may not contain all information available regarding this patient. Last updated 18.[facility] [place] Allergies Active Allergy Reactions Criticality Noted Date Comments Contrast-Iodinated Agents For Ct/Other 08/17/2009 Naproxen 08/17/2009 Reglan 08/17/2009 Medications * Be aware that medications may not be up to date on this document. Alwaysverify current medications with the patient. Medication Sig Dispensed Refills Start Date End Date Status enalapril (VASOTEC) 20 MG tablet Take 20 mg by mouth 2 times daily. Active diltiazem ER (TIAZAC) 240 MG capsule Take 240 mg by mouth 2 times daily. Active furosemide (LASIX) 40 MG tablet Take 40 mg by mouth once daily. 40 to 60 mg daily. Active aspirin 81 MG tablet Take 81 mg by mouth daily. Active methylphenidate ER (RITALIN SR) 20 MG tablet Take 20 mg by mouth every morning. Active cyanocobalamin (vitamin B-12) injection Inject into muscle every 30 days. Active lovastatin (MEVACOR) 20 MG tablet Take 20 mg by mouth at bedtime. Active vitamin D, ergocalciferol, (DRISDOL) 35201 UNIT capsule Take 50,000 Units by mouth every 7 days. Active doxazosin (CARDURA) 1 MG tablet Take 1 mg by mouth at bedtime. Active levalbuterol (XOPENEX HFA) 45 MCG/ACT inhaler Inhale 2 Puffs by mouth every 6 hours. prn 1 Inhaler 3 07/29/2010 Active fluticasone-salmeterol (ADVAIR) 250-50 MCG/DOSE inhaler Inhale 1 Puff by mouth 2 times daily. 1 Inhaler 5 01/09/2011 Active albuterol HFA (PROVENTIL;VENTOLIN;DC OAIR) 108 (90 BASE) MCG/ACT inhalerIndications:Ast hma,GERD (gastroesophageal reflux disease),Chronic fatigue,Allergic rhinitis,Snoring,Sleep disturbance Inhale 2 Puffs by mouth every 6 hours as needed. 1 Inhaler 5 01/27/2011 Active esomeprazole (NEXIUM) 40 MG capsuleIndications:Ast hma,GERD (gastroesophageal reflux disease),Chronic fatigue,Allergic rhinitis,Snoring,Sleep disturbance Take 1 Cap by mouth 2 times daily. 60 5 01/27/2011 Active Active Problems Problem Noted Date Diagnosed Date MS (multiple sclerosis) 01/27/2011 Snoring 07/29/2010 Sleep disturbance 07/29/2010 Asthma 08/17/2009 Overview (08/17/2009): Adult onset. 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 Chronic fatigue 08/17/2009 Overview (08/17/2009): Due to neurologic disorder: possibly MS. Esophageal stricture 08/17/2009 Overview (08/17/2009): She is status post dilatation. Allergic rhinitis 08/17/2009 Overview (08/17/2009): RAST positive for dust, mold, grass. Immunizations Name Administration Dates Next Due INFLUENZA A N1O3-08 VACCINE 07/23/2009 INFLUENZA VACCINE 06/30/2009 Social History Tobacco Use Types Packs/Day Years [...] Mass Index 33.52 01/27/2011 1:12 PM CDT Plan of Treatment Not on file Care Teams Blood Bank Booking Clerk Relationship Specialty Start Date End Date Nina Contreras MD PCP - General 02/07/10 Hussein Mcghee MD [address] [facility], [address] [place], [place] [id number] Nephrology 07/29/10 [place] [address] [address] Pulmonary Disease 01/27/11
--- OUTSIDE RECORDS SUMMARY | 2024-08-29 12:07 | XMS_ITS | Clinical Summary ---
Author Organization [facility] Address [address] [place] [address] Care Team Providers Care Laborer Vegetable Farm Name Role Phone Nina Contreras MD Primary Care Provider [phone] Hussein Mcghee MD Unavailable [phone] Kenyon Morgan MD Unavailable [phone] Source Comments [facility],non-owned Affiliates and Associated Physician Practices is amultiple site organization consisting of ambulatory clinics and hospital sitesin [place], [place], [place] and [place]. This disclosure is being madepursuant to the Care Everywhere program and may not contain all information available regarding this patient. Last updated 18.[facility] Allergies Active Allergy Reactions Criticality Noted Date [...] at bedtime. Active vitamin D, ergocalciferol, (DRISDOL) 19614 UNIT capsule Take 50,000 Units by mouth [...] 1 Inhaler 5 01/09/2011 Active albuterol HFA (PROVENTIL;VENTOLIN;MI OAIR) 108 (90 BASE) MCG/ACT inhalerIndications:Ast hma,GERD [...] Name Administration Dates Next Due INFLUENZA A N7R8-20 VACCINE 07/23/2009 INFLUENZA VACCINE 06/30/2009 Social History [...] 01/27/2011 1:12 PM CDT Plan of Treatment Health Maintenance Due Date Last Done Comments COLOGUARD (AGES 45-75) - COL ON CA SCREENING 1960 COLON MONITORING 1960 COLONOSCOPY - COLON CA SCREENING 1960 CT COLONOGRAPHY - COLON CA SCREENING 1960 Colorectal Cancer Screening 1960 FIT - COLON CA SCREENING 1960 FLEX SIG - COLON CA SCREENING 1960 MAMMOGRAM 1960 MEDICARE AWV 12 MONTHS 1960 PAP SMEAR 1960 HIV SCREENING 10/24/1975 HEPATITIS C SCREENING 10/19/1978 DTAP/TDAP/TD VACCINES (1 - Tdap) 10/24/1979 PNEUMOCOCCAL VACCINE 50+ (1 of 2 - PCV) 10/24/1979 PNEUMOCOCCAL VACCINE (1 of 2 - PCV) 10/24/1979 ZOSTER VACCINE (1 of 2) 2010 Respiratory Syncytial Virus (RSV) Vaccine Pt: or over 60 yrs (1 - Risk 60-74 years 1-dose series) 2020 COVID-19 VACCINE ( - 2023-2 5 season) 2024 INFLUENZA VACCINE (#1) 2024 0, 06/30/2009 DEPRESSION SCREENING 07/23/2024 HEPATITIS B VACCINE Aged Out No longe r eligible based on patient's age to complete this topic HIB VACCINE Aged Out No longer eligi ble based on patient's age to complete this topic HPV VACCINE Aged Out No longer eligi ble based on patient's age to complete this topic MENINGOCOCCAL (Group B) VACCINE Aged Out No longer eligible b ased on patient's age to complete this topic MENINGOCOCCAL VACCINE Aged Out No petey tea eligible based on patient's age to complete this topic Care Teams Laborer Vegetable Farm Relationship Specialty Start Date End Date Nina Contreras MD PCP - General 02/07/10 Hussein Mcghee MD [address] [facility], [address] [place] [address] Nephrology 07/29/10 [place] [address] [facility] [address] [place] [address] Pulmonary Disease 01/27/11
--- OUTSIDE RECORDS SUMMARY | 2024-08-29 12:07 | XMS_ITS | Encounter Summary ---
Author Organization [facility] Address [address] [place] [address] Care Team Providers Care Cash Checker Name Role Phone Chance Medellin MD Primary Care Provider [phone] Encounter Details Date Type Department Care Team (Late st Contact Info) Description 05/11/2005 Outpatient Historical [facility] Internal Medicine [facility] [address] [facility] [address] [address] Nina Contreras MD Social History Tobacco Use Types Packs/Day Years Used Date Smoking Tobacco: Never Assessed Comments Unknown Sex and Gender Information Value Date Recorded Sex Assigned at Not on file Legal Sex Female 4:22 AM RADIOLOGY DIRECTOR Gender Identity Not on file Sexual Orientation Not on file documented as of this encounter Last Filed Vital Signs Vital Sign Reading Time Taken Comments Blood Pressure 140/108 05/11/2005 11:45 AM CDT Pulse 84 05/11/2005 11:45 AM CDT Temperature 36.4 C (97.5 F) 05/11/2005 11:45 AM CDT Respiratory Rate 16 05/11/2005 11:45 AM CDT Oxygen Saturation - - Inhaled Oxygen Concentration - - Weight 81.6 kg (180 lb) 05/11/2005 11:45 AM CDT Height - - Body Mass Index 28.19 06/13/2004 9:30 AM RADIOLOGY DIRECTOR documented in this encounter Plan of Treatment Not on file documented as of this encounter Visit Diagnoses Not on filedocumented in this encounter Care Teams Cash Checker Relationship Specialty Start Date End Date Chance Medellin MD [address] [facility] [address] [place] [address] PCP - General Internal Medicine 04/28/16 documented as of this encounter
--- OUTSIDE RECORDS SUMMARY | 2024-08-29 12:07 | XMS_ITS | Encounter Summary ---
Author Organization [facility] Address [address] [place] [address] Care Team Providers Care Occupational Health Physiotherapist Name Role Phone Mykel Garcia DO Primary Care Provider + Encounter Details Date Type Department Care Team (Latest Contact Info) Description 08/29/2024 Travel Social History Tobacco Use Types Packs/Day Years [...] Diagnoses Not on filedocumented in this encounter Additional Health Concerns Assessment Noted Time PHQ-9 Depression Total Score: 3 06/03/20 21 8:34 AM BUSINESS REPORTING DEVELOPER documented as of this encounter Care Teams Occupational Health Physiotherapist Relationship Specialty Start Date End Date Mykel Garcia DO [address] [place] [address] PCP - General FAMILY PRACTICE 03/26/20 documented as of this encounter
--- OUTSIDE RECORDS SUMMARY | 2024-08-29 12:07 | XMS_ITS | Clinical Summary ---
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 Gender Identity Not on file Sexual Orientation Not on file Plan of Treatment Health Maintenance Due Date Last Done Comments Hepatitis C Virus (HCV) Screening 1960 Pap Smear 1981 Cervical Cancer Screening (CCS) 1990 HPV/Cotest 1990 Colonoscopy 2005 Colorectal Cancer Screening 2005 Cologuard 2010 Immunochemical Fecal Occult Blood 2010 Mammogram 2010 Pneumococcal Immunization (5 0+ years) (1 of 1 - PCV) 2010 Zoster Immunization (1 of 2) 2010 Influenza Immunization (#1) 2024 09/0 10/2019, 06/26/2017, 05/05/2016 SARS-COV-2 Immunization ( season) 2024 05/25/2021, 09/27/2020 Respiratory Syncytial Virus (RSV) Immunization (Adult) (1 - 1-dose 75+ series) 10/24/2035 DTaP/Tdap/Td Immunization Discontinued 03/26/2020 TdaP Immunization Completed 03/26/2020 Hepatitis B Immunization Aged Out No longer eligible based on patient's age to complete this topic Meningococcal Immunization (ACWY) Aged Out No longer eligible based on patient's age to complete this topic Pneumococcal Immunization Combined Aged Out No longer eligible based on patient's age to complete this topic Rotavirus Immunization Aged Out No lo nger eligible based on patient's age to complete this topic
--- OUTSIDE RECORDS SUMMARY | 2024-08-29 12:07 | XMS_ITS | Encounter Summary ---
Author Organization [facility] Address [address] [place] [address] Care Team Providers Care Body Bumper Name Role Phone Chance Medellin MD Primary Care Provider [phone] Encounter Details Date Type Department Care Team (Late st Contact Info) Description 01/04/2000 Outpatient Historical [facility] Internal Medicine [facility] [address] [facility] [address] [place] [address] Niesha Arevalo MD [address] [place] [address] Social History Tobacco Use Types Packs/Day Years Used Date Smoking Tobacco: Never Assessed Comments Unknown Sex and Gender Information Value Date Recorded Sex Assigned at Not on file Legal Sex Female 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
--- OUTSIDE RECORDS SUMMARY | 2024-08-29 12:07 | XMS_ITS | Encounter Summary ---
Author Organization [facility] Address [address] [place] [address] Care Team Providers Care Correctional Supply Supervisor Name Role Phone Chance Medellin MD Primary Care Provider [phone] Encounter Details Date Type Department Care Team (Late st Contact Info) Description 05/06/2005 Outpatient Historical [facility] Jacky Donato MD [facility] [place] [address] Er, Authorized P NO ADDRESS ON FILE HEADACHE (Primary Dx) Social History Tobacco Use Types Packs/Day Years Used Date Smoking Tobacco: Never Assessed Comments Unknown Sex and Gender Information Value Date Recorded Sex Assigned at Not on file Legal Sex Female 4:22 AM PSYCHOLOGICAL ASSISTANT Gender Identity Not on file Sexual Orientation Not on file documented as of this encounter Plan of Treatment Not on file documented as of this encounter Procedures Procedure Name Priority Date/Time Associated Diagnosis Comments CBC WITH DIFFERENTIAL Routine 05/07/2005 1:54 AM CDT CBC WITH DIFFERENTIAL Routine 05/07/2005 1:54 AM CDT SPINAL FLUID CELL COUNT W/REFLEXIVE DIFF Routine 05/07/2005 1:02 AM CDT SPINAL FLUID CELL COUNT W/REFLEXIVE DIFF Routine 05/07/2005 1:02 AM CDT TOTAL PROTEIN, CSF Routine 05/07/2005 1: 02 AM CDT GLUCOSE, CSF Routine 05/07/2005 1:02 AM CDT ED HOLD Routine 05/07/2005 12:09 AM CDT ED HOLD Routine 05/07/2005 12:07 AM CDT documented in this encounter Results * (ABNORMAL) CBC WITH DIFFERENTIAL (05/07/2005 1:54 AM CDT) NEUTROPHILS 87(H) 45 - 70 % INTERFAC E SYSTEM LYMPHOCYTES 5(L) 16 - 45 % INTERFAC E SYSTEM MONOCYTES 8 3 - 13 % INTERFACE SYSTEM EOSINOPHILS 1 0 - 7 % INTERFAC E SYSTEM BASOPHILS 0 0 - 2 % INTERFACE SYSTEM NEUTROPHIL ABSOLUTE 9.29(H) 1.90 - 7.00 K/uL INTERFACE SYSTEM LYMPHOCYTE ABSOLUTE 0.50(L) 0.70 - 4.50 K/uL INTERFACE SYSTEM MONOCYTE ABSOLUTE 0.83 0.10 - 1.30 K/uL INTERFACE SYSTEM EOSINOPHIL ABSOLUTE 0.09 0.00 - 0.70 K/uL INTERFACE SYSTEM BASOPHILS ABSOLUTE 0.03 0.00 - 0.20 K/uL INTERFACE SYSTEM 05/07/2005 1:54 AM CDT us Jacky Donato MD HEMATOLOGY ORDERABLES Final Resu lt INTERFACE SYSTEM Refer to clinic/hospital department * (ABNORMAL) CBC WITH DIFFERENTIAL (05/07/2005 1:54 AM CDT) WBC 10.7(H) 4.0 - 9.8 K/uL INTERFACE SYSTEM RBC 4.77 3.90 - 4.90 M/uL INTERFACE SYSTEM HEMOGLOBIN 14.6 11.8 - 14.8 g/dL INTERFACE SYSTEM HEMATOCRIT 41.7 35.5 - 44.0 % INTERFACE SYSTEM MCV 87.4 82.0 - 99.0 fL INTERFACE SYSTEM MCH 30.6 27.2 - 32.6 pg INTERFACE SYSTEM MCHC 35.0 31.5 - 35.5 % INTERFACE SYSTEM RDW 12.1 11.5 - 14.5 % INTERFACE SYSTEM RDW-STDEV 38.7 37.1 - 48.7 fL INTERFACE SYSTEM PLATELETS 291 140 - 350 K/uL INTERFACE SYSTEM MPV 10.6 9.3 - 12.4 fL INTERFACE SYSTEM 05/07/2005 1:54 AM CDT us Jacky Donato MD HEMATOLOGY ORDERABLES Final Resu lt Performing Organization Address [facility] Phone Number INTERFACE SYSTEM Refer to clinic/hospital department * SPINAL FLUID CELL COUNT W/REFLEXIVE DIFF (05/07/2005 1:02 AM CDT) LYMPHOCYTES, CSF 55 40 - 80 % INTERFACE SYSTEM MONOCYTES/ HISTIOCYTES, CSF 45 15 - 45 % INTERFACE SYSTEM # CELLS COUNTED FOR DIFF, CSF 100 WBC Counted INTERFACE SYSTEM 05/07/2005 1:02 AM CDT us Jacky Donato MD BODY FLUIDS AND STOOLS Final Res ult Performing Organization Address [facility] Phone Number INTERFACE SYSTEM Refer to clinic/hospital department * (ABNORMAL) TOTAL PROTEIN, CSF (05/07/2005 1:02 AM CDT) PROTEIN, CSF 65(H) 15 - 60 mg/dL INTERFACE SYSTEM 05/07/2005 1:02 AM CDT us Jacky Donato MD BODY FLUIDS AND STOOLS Final Res ult Performing Organization Address [facility] Phone Number INTERFACE SYSTEM Refer to clinic/hospital department * GLUCOSE, CSF (05/07/2005 1:02 AM CDT) GLUCOSE, CSF 60 41 - 75 mg/dL INTERFACE SYSTEM 05/07/2005 1:02 AM CDT us Jacky Donato MD BODY FLUIDS AND STOOLS Final Res ult Performing Organization Address [facility] Phone Number INTERFACE SYSTEM Refer to clinic/hospital department * SPINAL FLUID CELL COUNT W/REFLEXIVE DIFF (05/07/2005 1:02 AM CDT) APPEARANCE, CSF Clear Clear INTERFACE SYSTEM COLOR, CSF Colorless Colorless INTERFACE SYSTEM TUBE #, CSF 3 INTERFAC E SYSTEM VOLUME, CSF 5.0 mL INTERFAC E SYSTEM WBC, CSF 5 0 - 10 /uL INTERFACE SYSTEM RBC, CSF 0 <=0 /uL INTERFACE SYSTEM 05/07/2005 1:02 AM CDT Jacky Donato MD BODY FLUIDS AND STOOLS Final Res ult Performing Organization Address [facility] Phone Number INTERFACE SYSTEM Refer to clinic/hospital department * ED HOLD (05/07/2005 12:09 AM CDT) SPECIMEN HOLD, BLOOD 7 days INTERFACE SYSTEM 05/07/2005 12:0 9 AM CDT Alice Robles MD CHEMISTRY ORDERABLES Final R esult Performing Organization Address [facility] Phone Number INTERFACE SYSTEM Refer to clinic/hospital department * ED HOLD (05/07/2005 12:07 AM CDT) SPECIMEN HOLD, BLOOD 7 days INTERFACE SYSTEM 05/07/2005 12:0 7 AM CDT Alice Robles MD CHEMISTRY ORDERABLES Final R esult Performing Organization Address [facility] Phone Number INTERFACE SYSTEM Refer to clinic/hospital department documented in this encounter Visit Diagnoses Diagnosis Headache(784.0)- Primary Headache documented in this encounter Care Teams Correctional Supply Supervisor Relationship Specialty Start Date End Date Chance Medellin MD [address] [facility] [address] [place] [address] PCP - General Internal Medicine 04/28/16 documented as of this encounter
--- OUTSIDE RECORDS SUMMARY | 2024-08-29 12:07 | XMS_ITS | Encounter Summary ---
Author Organization [facility] Address [address] [place] [address] Care Team Providers Care Estate Attorney Name Role Phone Chance Medellin MD Primary Care Provider [phone] Encounter Details Date Type Department Care Team (Late st Contact Info) Description 07/05/2001 Outpatient Historical [facility] Internal Medicine [facility] [address] [address] [place] [address] Niesha Arevalo MD [address] [place] [address] Social History Tobacco Use Types Packs/Day Years Used Date Smoking Tobacco: Never Assessed Comments Unknown Sex and Gender Information Value Date Recorded Sex Assigned at Not on file Legal Sex Female 4:22 AM KAIWHAKAHAERE Gender Identity Not on file Sexual Orientation Not on file documented as of this encounter Plan of Treatment Not on file documented as of this encounter Visit Diagnoses Not on filedocumented in this encounter Care Teams Estate Attorney Relationship Specialty Start Date End Date Chance Medellin MD [address] [facility] [address] [place] [address] PCP - General Internal Medicine 04/28/16 documented as of this encounter
--- OUTSIDE RECORDS SUMMARY | 2024-08-29 12:07 | XMS_ITS | Encounter Summary ---
Author Organization [facility] Address [address] [place] [address] Care Team Providers Care Codifier Name Role Phone Chance Medellin MD Primary Care Provider [phone] Encounter Details Date Type Department Care Team (Latest Contact Info) Description 05/19/2008 Outpatient Historical [facility] YENIFER Benitez, Nohemy Holman MD [address] [facility] [address] [place] [address] Unspecified Myalgia and Myositis Social History Tobacco Use Types Packs/Day Years Used Date Smoking Tobacco: Never Alcohol Use Standard Drinks/Week Comments No 0 (1 standard drink = 0.6 oz pur e alcohol) Comments No Sex and Gender Information Value Date Recorded Sex Assigned at Not on file Legal Sex Female 4:22 AM QUALITY IMPROVEMENT CONSULTANT Gender Identity Not on file Sexual Orientation Not on file documented as of this encounter Plan of Treatment Not on file documented as of this encounter Procedures Procedure Name Priority Date/Time Associated Diagnosis Comments ALDOLASE Routine 05/19/2008 1:29 PM CDT SEDIMENTATION RATE Routine 05/19/2008 1: 29 PM CDT RHEUMATOID FACTOR Routine 05/19/2008 1:2 9 PM CDT OLIVER SCREEN W/REFLEX Routine 05/19/2008 1 :29 PM CDT CK Routine 05/19/2008 1:29 PM CDT documented in this encounter Results * OLIVER (05/19/2008 1:29 PM CDT) Pathologist [facility] OLIVER SCREEN NEGATIVE NEGATIVE [facility] Comment: Lab test performed by: [employer] [address] [phone] MATILDE YUN MD Blood specimen (specimen) 05/19/2008 1:29 PM CDT 05/19/2008 2:08 PM CDT us Nohemy Benitez MD CHEMISTRY ORDERABLES Final Re sult Performing Organization Address [facility] Phone Number INTERFACE SYSTEM Refer to clinic/hospital department [facility] CLIA# [id number] [address] [place] [address] * SEDIMENTATION RATE (05/19/2008 1:29 PM CDT) [facility] ESR (SEDIMENTATION RATE) 14 0 - 20 mm/hr [facility] Blood specimen (specimen) 05/19/2008 1:29 PM CDT 05/19/2008 2:06 PM CDT us Nohemy Benitez MD HEMATOLOGY ORDERABLES Final R esult Performing Organization Address [facility] Phone Number INTERFACE SYSTEM Refer to clinic/hospital department [facility] CLIA# [id number] [address] [place] [address] * RHEUMATOID FACTOR (05/19/2008 1:29 PM CDT) [facility] RHEUMATOID FACTOR <6.0 0.0 - 13.9 IU/mL [facility] Blood specimen (specimen) 05/19/2008 1:29 PM CDT 05/19/2008 2:08 PM CDT us Nohemy Benitez MD CHEMISTRY ORDERABLES Final Re sult Performing Organization Address [facility] Phone Number INTERFACE SYSTEM Refer to clinic/hospital department [facility] CLIA# [id number] [address] [place] [address] * ALDOLASE (05/19/2008 1:29 PM CDT) ALDOLASE 4.2 < OR = 8.1 U/L [facility] Comment: Lab test performed by: [employer] [address] [place] [address] MATILDE YUN MD Blood specimen (specimen) 05/19/2008 1:29 PM CDT 05/19/2008 2:08 PM CDT Nohemy Benitez MD CHEMISTRY ORDERABLES Final Re sult Performing Organization Address [facility] Phone Number INTERFACE SYSTEM Refer to clinic/hospital department [facility] CLIA# [id number] [address] [place] [address] * CK (05/19/2008 1:29 PM CDT) CK 78 10 - 145 U/L [facility] Blood specimen (specimen) 05/19/2008 1:29 PM CDT 05/19/2008 2:08 PM CDT Nohemy Benitez MD CHEMISTRY ORDERABLES Final Re sult Performing Organization Address [facility] Phone Number INTERFACE SYSTEM Refer to clinic/hospital department [facility] CLIA# [id number] [address] [place] [address] documented in this encounter Visit Diagnoses Diagnosis Myalgia and myositis, unspecified Mylagia and myositis, unspecified documented in this encounter Care Teams Codifier Relationship Specialty Start Date End Date Chance Medellin MD [address] [address] PCP - General Internal Medicine 04/28/16 documented as of this encounter
--- OUTSIDE RECORDS SUMMARY | 2024-08-29 12:07 | XMS_ITS | Encounter Summary ---
Author Organization [facility] Address [address] [place] [address] Care Team Providers Care Papier Mache' Molder Name Role Phone Chance Medellin MD Primary Care Provider Encounter Details Date Type Department Care Team (Late st Contact Info) Description 01/18/[address] [facility] Internal Medicine [facility] [address] [place] [address] Niesha Arevalo MD [address] [place] [address] Social History Tobacco Use Types Packs/Day Years Used Date Smoking Tobacco: Never Assessed Comments Unknown Sex and Gender Information Value Date Recorded Sex Assigned at Not on file Legal Sex Female 4:22 AM SENIOR MEDIA BUYER Gender Identity Not on file Sexual Orientation Not on file documented as of this encounter Plan of Treatment Not on file documented as of this encounter Visit Diagnoses Not on filedocumented in this encounter Care Teams Papier Mache' Molder Relationship Specialty Start Date End Date Chance Medellin MD [address] [facility] [address] [place] [address] PCP - General Internal Medicine 04/28/16 documented as of this encounter
--- OUTSIDE RECORDS SUMMARY | 2024-08-29 12:07 | XMS_ITS | Encounter Summary ---
Author Organization [facility] Address [address] [place] [address] Care Team Providers Care Perishable Fruit Inspector Name Role Phone Chance Medellin MD Primary Care Provider [phone] Encounter Details Date Type Department Care Team (Late st Contact Info) Description 08/29/2000 Outpatient Historical [facility] Internal Medicine [facility] [address] [address] [facility] [address] [place] [address] Niesha Arevalo MD [address] [place] [address] Social History Tobacco Use Types Packs/Day Years Used Date Smoking Tobacco: Never Assessed Comments Unknown Sex and Gender Information Value Date Recorded Sex Assigned at Not on file Legal Sex Female 4:22 AM CARD MAKER Gender Identity Not on file Sexual Orientation Not on file documented as of this encounter Plan of Treatment Not on file documented as of this encounter Visit Diagnoses Not on filedocumented in this encounter Care Teams Perishable Fruit Inspector Relationship Specialty Start Date End Date Chance Medellin MD [address] [facility] [address] [place] [address] PCP - General Internal Medicine 04/28/16 documented as of this encounter
--- OUTSIDE RECORDS SUMMARY | 2024-08-29 12:07 | XMS_ITS | Encounter Summary ---
Author Organization [employer] Address [address] [place] [address] Care Team Providers Care Dining Car Hop Name Role Phone Chance Medellin MD Primary Care Provider [phone] Encounter Details Date Type Department Care Team (Late st Contact Info) Description 02/09/2004 Outpatient Historical [facility] [address] [address] Nohemy Benitez MD [address] [facility] [address] [place] [address] Social History Tobacco Use Types Packs/Day Years Used Date Smoking Tobacco: Never Assessed Comments Unknown Sex and Gender Information Value Date Recorded Sex Assigned at Not on file Legal Sex Female 4:22 AM BRAKE LINING MAKER Gender Identity Not on file Sexual Orientation Not on file documented as of this encounter Plan of Treatment Not on file documented as of this encounter Visit Diagnoses Not on filedocumented in this encounter Care Teams Dining Car Hop Relationship Specialty Start Date End Date Chance Medellin MD [address] [facility] [address] [place] [address] PCP - General Internal Medicine 04/28/16 documented as of this encounter
--- OUTSIDE RECORDS SUMMARY | 2024-08-29 12:07 | XMS_ITS | Encounter Summary ---
Author Organization [facility] Address [address] [place] [address] Care Team Providers Care Business Control Manager Name Role Phone Chance Medellin MD Primary Care Provider [phone] Encounter Details Date Type Department Care Team (Late st Contact Info) Description 2000 Outpatient Historical [facility] Internal Medicine [facility] [address] [facility] [address] [place] [address] Niesha Arevalo MD [address] [place] [address] Social History Tobacco Use Types Packs/Day Years Used Date Smoking Tobacco: Never Assessed Comments Unknown Sex and Gender Information Value Date Recorded Sex Assigned at Not on file Legal Sex Female 4:22 AM APPLICATION SUPPORT ADMINISTRATOR Gender Identity Not on file Sexual Orientation Not on file documented as of this encounter Plan of Treatment Not on file documented as of this encounter Visit Diagnoses Not on filedocumented in this encounter Care Teams Business Control Manager Relationship Specialty Start Date End Date Chance Medellin MD [address] [facility] [address] [place] [address] PCP - General Internal Medicine 04/28/16 documented as of this encounter
--- OUTSIDE RECORDS SUMMARY | 2024-08-29 12:07 | XMS_ITS | Encounter Summary ---
Author Organization [facility] Address [address] [place] [address] Care Team Providers Care Forklift Truck Mechanic Name Role Phone Chance Medellin MD Primary Care Provider [phone] Encounter Details Date Type Department Care Team (Late st Contact Info) Description 04/12/2001 Outpatient Historical [facility] Internal Medicine [facility] [address] [place] [address] Niesha Arevalo MD [address] [place] [address] Social History Tobacco Use Types Packs/Day Years Used Date Smoking Tobacco: Never Assessed Comments Unknown Sex and Gender Information Value Date Recorded Sex Assigned at Not on file Legal Sex Female 4:22 AM PUBLIC WORKS COMMISSIONER Gender Identity Not on file Sexual Orientation Not on file documented as of this encounter Plan of Treatment Not on file documented as of this encounter Visit Diagnoses Not on filedocumented in this encounter Care Teams Forklift Truck Mechanic Relationship Specialty Start Date End Date Chance Medellin MD [address] [facility] [address] [place] [address] PCP - General Internal Medicine 04/28/16 documented as of this encounter
--- OUTSIDE RECORDS SUMMARY | 2024-08-29 12:08 | XMS_ITS | Encounter Summary ---
Author Organization [facility] Address [address] [place] [address] Care Team Providers Care Printed Circuit Board Pcb Designer Name Role Phone Chance Medellin MD Primary Care Provider [phone] Encounter Details Date Type Department Care Team (Late st Contact Info) Description 01/22/2006 Outpatient Historical [facility] Internal Medicine [facility] [address] [facility] [address] [address] Nina Contreras MD Social History Tobacco Use Types Packs/Day Years Used Date Smoking Tobacco: Never Assessed Comments Unknown Sex and Gender Information Value Date Recorded Sex Assigned at Not on file Legal Sex Female 4:22 AM MARKETING PLANNER Gender Identity Not on file Sexual Orientation Not on file documented as of this encounter Plan of Treatment Not on file documented as of this encounter Visit Diagnoses Not on filedocumented in this encounter Care Teams Printed Circuit Board Pcb Designer Relationship Specialty Start Date End Date Chance Medellin MD [address] [facility] [address] [place] [phone] PCP - General Internal Medicine 04/28/16 documented as of this encounter
--- OUTSIDE RECORDS SUMMARY | 2024-08-29 12:08 | XMS_ITS | Encounter Summary ---
Author Organization [employer] [facility] Address [address] [place] [address] Care Team Providers Care Soil Scientist Name Role Phone Chance Medellin MD Primary Care Provider [phone] Encounter Details Date Type Department Care Team (Late st Contact Info) Description 05/30/2005 Outpatient Historical [facility] DEPT Nohemy Benitez MD [address] [facility] [address] [place] [address] SPINAL CORD DISEASE NOS (CMS/HCC) (Primary Dx) Social History Tobacco Use Types Packs/Day Years Used Date Smoking Tobacco: Never Assessed Comments Unknown Sex and Gender Information Value Date Recorded Sex Assigned at Not on file Legal Sex Female 4:22 AM GEOGRAPHIC INFORMATION SYSTEMS ENGINEER Gender Identity Not on file Sexual Orientation Not on file documented as of this encounter Plan of Treatment Not on file documented as of this encounter Visit Diagnoses Diagnosis Unspecified disease of spinal cord (CMS/HCC)- Primary Unspecified disease of spinal cord documented in this encounter Care Teams Soil Scientist Relationship Specialty Start Date End Date Chance Medellin MD [address] [facility] [address] [place] [address] PCP - General Internal Medicine 04/28/16 documented as of this encounter
--- OUTSIDE RECORDS SUMMARY | 2024-08-29 12:08 | XMS_ITS | Encounter Summary ---
Author Organization [employer] Address [address] [place] [address] Care Team Providers Care Roof Shingler Name Role Phone Chance Medellin MD Primary Care Provider [phone] Encounter Details Date Type Department Care Team (Late st Contact Info) Description 08/15/2004 Outpatient Historical Division of Neurology [address] [address] Nohemy Benitez MD [address] [facility] [address] [place] [address] Social History Tobacco Use Types Packs/Day Years Used Date Smoking Tobacco: Never Assessed Comments Unknown Sex and Gender Information Value Date Recorded Sex Assigned at Not on file Legal Sex Female 4:22 AM FLOOR COVERER Gender Identity Not on file Sexual Orientation Not on file documented as of this encounter Plan of Treatment Not on file documented as of this encounter Visit Diagnoses Not on filedocumented in this encounter Care Teams Roof Shingler Relationship Specialty Start Date End Date Chance Medellin MD [address] [facility] [address] [place] [address] PCP - General Internal Medicine 04/28/16 documented as of this encounter
--- OUTSIDE RECORDS SUMMARY | 2024-08-29 12:08 | XMS_ITS | Encounter Summary ---
Author Organization [employer] [facility] Address [address] [place] [address] Care Team Providers Care Museum Exhibit Designer Name Role Phone Chance Medellin MD Primary Care Provider [phone] Encounter Details Date Type Department Care Team (Latest Contact Info) Description 06/30/2004 Outpatient Historical [facility] Daniel Turner MD [address] [place] [address] MALIGNANT HYPERTENSION (Primary Dx) Social History Tobacco Use Types Packs/Day Years Used Date Smoking Tobacco: Never Assessed Comments Unknown Sex and Gender Information Value Date Recorded Sex Assigned at Not on file Legal Sex Female 4:22 AM FIRE CONTROL TECHNICIAN G Gender Identity Not on file Sexual Orientation Not on file documented as of this encounter Plan of Treatment Not on file documented as of this encounter Visit Diagnoses Diagnosis Essential hypertension, malignant- Primary documented in this encounter Care Teams Museum Exhibit Designer Relationship Specialty Start Date End Date Chance Medellin MD [address] [facility] [address] [place] [address] PCP - General Internal Medicine 04/28/16 documented as of this encounter
--- OUTSIDE RECORDS SUMMARY | 2024-08-29 12:08 | XMS_ITS | Encounter Summary ---
Author Organization [facility] Address [address] [facility] Attn: Epic Prelude ADT [place] [address] Care Team Providers Care Language Specialist Name Role Phone Chance Medellin MD Primary Care Provider [phone] Encounter Details Date Type Department Care Team (Latest Contact Info) Description 09/19/2005 Orders Only Nina Contreras MD Social History Tobacco Use Types Packs/Day Years Used Date Smoking Tobacco: Never Assessed Comments Unknown Sex and Gender Information Value Date Recorded Sex Assigned at Not on file Legal Sex Female 4:22 AM TRACK REPAIRER Gender Identity Not on file Sexual Orientation Not on file documented as of this encounter Plan of Treatment Not on file documented as of this encounter Visit Diagnoses Not on filedocumented in this encounter Care Teams Language Specialist Relationship Specialty Start Date End Date Chance Medellin MD [address] [address] PCP - General Internal Medicine 04/28/16 documented as of this encounter
--- OUTSIDE RECORDS SUMMARY | 2024-08-29 12:08 | XMS_ITS | Encounter Summary ---
Author Organization [facility] Address [address] [place] [address] Care Team Providers Care Marine Biologist Name Role Phone Chance Medellin MD Primary Care Provider [phone] Encounter Details Date Type Department Care Team (Late st Contact Info) Description 12/29/2005 Outpatient Historical [facility] Internal Medicine Medical [facility] [address] [facility] [address] [address] Nina Contreras MD Social History Tobacco Use Types Packs/Day Years Used Date Smoking Tobacco: Never Assessed Comments Unknown Sex and Gender Information Value Date Recorded Sex Assigned at Not on file Legal Sex Female 4:22 AM ACCELERATOR SYSTEMS DIRECTOR Gender Identity Not on file Sexual Orientation Not on file documented as of this encounter Last Filed Vital Signs Vital Sign Reading Time Taken Comments Blood Pressure 167/112 12/29/2005 2:30 PM CDT Pulse 117 12/29/2005 2:30 PM CDT Temperature 37 C (98.6 F) 12/29/2005 2:30 PM CDT Respiratory Rate 12 12/29/2005 2:30 PM CDT Oxygen Saturation - - Inhaled Oxygen Concentration - - Weight 83 kg (183 lb) 12/29/2005 2:30 PM CDT Height - - Body Mass Index 28.66 06/13/2004 9:30 AM ACCELERATOR SYSTEMS DIRECTOR documented in this encounter Plan of Treatment Not on file documented as of this encounter Visit Diagnoses Not on filedocumented in this encounter Care Teams Marine Biologist Relationship Specialty Start Date End Date Chance Medellin MD [address] [facility] [address] [place] [address] PCP - General Internal Medicine 04/28/16 documented as of this encounter
--- OUTSIDE RECORDS SUMMARY | 2024-08-29 12:08 | XMS_ITS | Encounter Summary ---
Author Organization [facility] Address [address] [place] [address] Care Team Providers Care Airline Pilot Flight Instructor Name Role Phone Chance Medellin MD Primary Care Provider [phone] Encounter Details Date Type Department Care Team (Late st Contact Info) Description 05/17/2004 Outpatient Historical [facility] Internal Medicine Medical [facility] [address] [facility] [address] [address] Nina Contreras MD Social History Tobacco Use Types Packs/Day Years Used Date Smoking Tobacco: Never Assessed Comments Unknown Sex and Gender Information Value Date Recorded Sex Assigned at Not on file Legal Sex Female 4:22 AM RESEARCH CENTER DIRECTOR Gender Identity Not on file Sexual Orientation Not on file documented as of this encounter Plan of Treatment Not on file documented as of this encounter Visit Diagnoses Not on filedocumented in this encounter Care Teams Airline Pilot Flight Instructor Relationship Specialty Start Date End Date Chance Medellin MD [address] [facility] [address] [place] [address] PCP - General Internal Medicine 04/28/16 documented as of this encounter
--- OUTSIDE RECORDS SUMMARY | 2024-08-29 12:08 | XMS_ITS | Encounter Summary ---
Author Organization [facility] Address [address] [facility] Attn: Epic Prelude ADT [place] [address] Care Team Providers Care Water Pumping Station Engineer Name Role Phone Chance Medellin MD Primary Care Provider [phone] Encounter Details Date Type Department Care Team (Latest Contact Info) Description 09/27/2006 Orders Only Nina Contreras MD Social History Tobacco Use Types Packs/Day Years Used Date Smoking Tobacco: Never Assessed Comments Unknown Sex and Gender Information Value Date Recorded Sex Assigned at Not on file Legal Sex Female 4:22 AM ICHTHYOLOGIST Gender Identity Not on file Sexual Orientation Not on file documented as of this encounter Plan of Treatment Not on file documented as of this encounter Visit Diagnoses Not on filedocumented in this encounter Care Teams Water Pumping Station Engineer Relationship Specialty Start Date End Date Chance Medellin MD [address] [address] PCP - General Internal Medicine 04/28/16 documented as of this encounter
--- OUTSIDE RECORDS SUMMARY | 2024-08-29 12:08 | XMS_ITS | Encounter Summary ---
Author Organization [facility] Address [address] [place] [address] Care Team Providers Care Preschool Special Education Teacher Name Role Phone Chance Medellin MD Primary Care Provider [phone] Encounter Details Date Type Department Care Team (Late st Contact Info) Description 11/22/2004 Outpatient Historical [facility] Internal Medicine Medical [facility] [address] [facility] [address] [address] Nina Contreras MD Social History Tobacco Use Types Packs/Day Years Used Date Smoking Tobacco: Never Assessed Comments Unknown Sex and Gender Information Value Date Recorded Sex Assigned at Not on file Legal Sex Female 4:22 AM LATEX FASHIONS DESIGNER Gender Identity Not on file Sexual Orientation Not on file documented as of this encounter Last Filed Vital Signs Vital Sign Reading Time Taken Comments Blood Pressure 140/100 11/22/2004 11:30 AM CDT Pulse 68 11/22/2004 11:30 AM CDT Temperature 36.5 C (97.7 F) 11/22/2004 11:30 AM CDT Respiratory Rate - - Oxygen Saturation - - Inhaled Oxygen Concentration - - Weight 87.1 kg (192 lb) 11/22/2004 11:30 AM CDT Height - - Body Mass Index 30.07 06/13/2004 9:30 AM LATEX FASHIONS DESIGNER documented in this encounter Plan of Treatment Not on file documented as of this encounter Visit Diagnoses Not on filedocumented in this encounter Care Teams Preschool Special Education Teacher Relationship Specialty Start Date End Date Chance Medellin MD [address] [facility] [address] [place] [address] PCP - General Internal Medicine 04/28/16 documented as of this encounter
--- OUTSIDE RECORDS SUMMARY | 2024-08-29 12:08 | XMS_ITS | Encounter Summary ---
Author Organization [employer] [facility] Address [address] [place] [address] Care Team Providers Care Resident Programs Assistant Name Role Phone Chance Medellin MD Primary Care Provider [phone] Encounter Details Date Type Department Care Team (Latest Contact Info) Description 06/14/2004 Outpatient [facility] [address] [facility] [place] [address] Daniel Turner MD [address] [place] [address] MALIGNANT HYPERTENSION (Primary Dx) Social History Tobacco Use Types Packs/Day Years Used Date Smoking Tobacco: Never Assessed Comments Unknown Sex and Gender Information Value Date Recorded Sex Assigned at Not on file Legal Sex Female 4:22 AM CONCRETE FENCE BUILDER Gender Identity Not on file Sexual Orientation Not on file documented as of this encounter Plan of Treatment Not on file documented as of this encounter Visit Diagnoses Diagnosis Essential hypertension, malignant- Primary documented in this encounter Care Teams Resident Programs Assistant Relationship Specialty Start Date End Date Chance Medellin MD [address] [facility] [address] [place] [address] PCP - General Internal Medicine 04/28/16 documented as of this encounter
--- OUTSIDE RECORDS SUMMARY | 2024-08-29 12:08 | XMS_ITS | Encounter Summary ---
Author Organization [employer] [facility] Address [address] [place] [address] Care Team Providers Care Electroplating Sales Representative Name Role Phone Chance Medellin MD Primary Care Provider [phone] Encounter Details Date Type Department Care Team (Latest Contact Info) Description 07/09/2006 Outpatient Historical [facility] Nohemy Benitez MD [address] [facility] [address] [place] [address] Pain in Soft Tissues of Limb (Primary Dx) Social History Tobacco Use Types Packs/Day Years Used Date Smoking Tobacco: Never Assessed Comments Unknown Sex and Gender Information Value Date Recorded Sex Assigned at Not on file Legal Sex Female 4:22 AM RING ROLLING MACHINE OPERATOR Gender Identity Not on file Sexual Orientation Not on file documented as of this encounter Plan of Treatment Not on file documented as of this encounter Visit Diagnoses Diagnosis Pain in limb- Primary documented in this encounter Care Teams Electroplating Sales Representative Relationship Specialty Start Date End Date Chance Medellin MD [address] [facility] [address] [place] [address] PCP - General Internal Medicine 04/28/16 documented as of this encounter
--- OUTSIDE RECORDS SUMMARY | 2024-08-29 12:08 | XMS_ITS | Encounter Summary ---
Author Organization [employer] [facility] Address [address] [place] [address] Care Team Providers Care Cabinet Professional Name Role Phone Chance Medellin MD Primary Care Provider [phone] Encounter Details Date Type Department Care Team (Latest Contact Info) Description 05/18/2005 Outpatient Historical [facility] Nina Garcia MD ABN SERUM ENZY LEVEL NEC (Primary Dx) Social History Tobacco Use Types Packs/Day Years Used Date Smoking Tobacco: Never Assessed Comments Unknown Sex and Gender Information Value Date Recorded Sex Assigned at Not on file Legal Sex Female 4:22 AM LINER CHECKER Gender Identity Not on file Sexual Orientation Not on file documented as of this encounter Plan of Treatment Not on file documented as of this encounter Procedures Procedure Name Priority Date/Time Associated Diagnosis Comments COMPREHENSIVE METABOLIC PANEL Routine 05/18/2005 10:47 AM CDT documented in this encounter Results * (ABNORMAL) COMPREHENSIVE METABOLIC PANEL (05/18/2005 10:47 AM CDT) GLUCOSE 102 65 - 109 mg/dL INTERFACE SYSTEM CREATININE 1.1 0.4 - 1.2 mg/dL INTERFACE SYSTEM CALCIUM 9.1 8.6 - 10.2 mg/dL INTERFACE SYSTEM AST 23 12 - 32 U/L INTERFACE SYSTEM ALKALINE PHOSPHATASE 84 35 - 104 U/L INTERFACE SYSTEM BUN 9 6 - 20 mg/dL INTERFACE SYSTEM BILIRUBIN TOTAL 0.5 0.2 - 1.0 mg/dL INTERFACE SYSTEM ALBUMIN 4.2 3.4 - 4.8 g/dL INTERFACE SYSTEM TOTAL PROTEIN 7.2 6.3 - 8.6 g/dL INTERFACE SYSTEM ALT 33(H) 0 - 31 U/L INTERFACE SYSTEM SODIUM 141 135 - 145 mmol/L INTERFACE SYSTEM POTASSIUM 3.8 3.5 - 4.9 mmol/L INTERFACE SYSTEM CHLORIDE 104 96 - 108 mmol/L INTERFACE SYSTEM CO2 30 22 - 30 mmol/L INTERFACE SYSTEM 05/18/2005 10:4 7 AM CDT us Nina Contreras MD CHEMISTRY ORDERABLES Final Re sult INTERFACE SYSTEM Refer to clinic/hospital department documented in this encounter Visit Diagnoses Diagnosis Other nonspecific abnormal serum enzyme levels- Primary documented in this encounter Care Teams Cabinet Professional Relationship Specialty Start Date End Date Chance Medellin MD [address] [address] PCP - General Internal Medicine 04/28/16 documented as of this encounter
--- OUTSIDE RECORDS SUMMARY | 2024-08-29 12:08 | XMS_ITS | Encounter Summary ---
Author Organization [facility] Address [address] [place] [address] Care Team Providers Care Ocean Transportation Intermediary Name Role Phone Mykel Garcia DO Primary Care Provider + Encounter Details Date Type Department Care Team (Late st Contact Info) Description 08/15/2022 [employer] Message Enc [facility] Family & Internal Medicine [facility] [address] [place] [phone] Mykel Garcia DO [address] [place] [address] Appointment Social History Tobacco Use Types Packs/Day Years [...] on file 10/2019 PHQ-2 Answer Date Recorded PHQ-2 Score - If the patient scores above 3, please move on to questions 3-9 0 11/22/2021 Comments No Sex and Gender Information Value Date Recorded Sex Assigned at Not on file Legal Sex Female 8:32 PM CDT Gender Identity Not on file Sexual Orientation Not on file documented as of this encounter Plan of Treatment Not on file documented as of this encounter Visit Diagnoses Not on filedocumented in this encounter Additional Health Concerns Infection Onset Date Last Indicated Resolved Time COVID-19 Rule Out 05/09/2023 05/09/2023 05/09/2023 11:39 AM CDT COVID-19 Rule Out 05/09/2023 05/09/2023 05/10/2023 3:31 PM CDT Assessment Noted Time PHQ-9 Depression Total Score: 3 06/03/20 21 8:34 AM MECHANICAL SYSTEMS DESIGNER documented as of this encounter Care Teams Ocean Transportation Intermediary Relationship Specialty Start Date End Date Mykel Garcia DO [address] [place] [address] PCP - General FAMILY PRACTICE 03/26/20 documented as of this encounter
--- OUTSIDE RECORDS SUMMARY | 2024-08-29 12:08 | XMS_ITS | Encounter Summary ---
Author Organization [facility] Address [address] [place] [address] Care Team Providers Care Planishing Press Operator Name Role Phone Chance Medellin MD Primary Care Provider [phone] Encounter Details Date Type Department Care Team (Latest Contact Info) Description 09/25/2006 Outpatient Historical [facility] Internal Medicine Medical [place] [facility] [address] [facility] [address] [address] Nina Contreras MD Other B-Complex Deficiencies (Primary Dx) Social History Tobacco Use Types Packs/Day Years Used Date Smoking Tobacco: Never Assessed Comments Unknown Sex and Gender Information Value Date Recorded Sex Assigned at Not on file Legal Sex Female 4:22 AM DANCE COSTUME DESIGNER Gender Identity Not on file Sexual Orientation Not on file documented as of this encounter Plan of Treatment Not on file documented as of this encounter Procedures Procedure Name Priority Date/Time Associated Diagnosis Comments VITAMIN B12 LEVEL Routine 09/25/2006 11: 05 AM DANCE COSTUME DESIGNER documented in this encounter Results * VITAMIN B12 (09/25/2006 11:05 AM DANCE COSTUME DESIGNER) VITAMIN B12 385 243 - 894 pg/mL INTERFACE SYSTEM Comment: It has been reported that between 5 to 10% of patients with values between 200 and 400 pg/mL may experience neuropsychiatric and hematologic abnormalities due to occult B12 deficiency. Less than 1% of patients with values above 400 pg/mL will have symptoms. 09/25/2006 11:0 5 AM DANCE COSTUME DESIGNER us Nina Contreras MD CHEMISTRY ORDERABLES Edited INTERFACE SYSTEM Refer to clinic/hospital department documented in this encounter Visit Diagnoses Diagnosis Other B-complex deficiencies- Primary documented in this encounter Care Teams Planishing Press Operator Relationship Specialty Start Date End Date Chance Medellin MD [address] [address] PCP - General Internal Medicine 04/28/16 documented as of this encounter
--- OUTSIDE RECORDS SUMMARY | 2024-08-29 12:08 | XMS_ITS | Encounter Summary ---
Author Organization [facility] Address [address] [place] [address] Care Team Providers Care Personal Protection Specialist Name Role Phone Chance Medellin MD Primary Care Provider [phone] Encounter Details Date Type Department Care Team (Late st Contact Info) Description 09/19/2005 Outpatient Historical [facility] Internal Medicine Medical [facility] [address] [facility] [address] [address] Nina Contreras MD Social History Tobacco Use Types Packs/Day Years Used Date Smoking Tobacco: Never Assessed Comments Unknown Sex and Gender Information Value Date Recorded Sex Assigned at Not on file Legal Sex Female 4:22 AM FIELD TRAFFIC INVESTIGATOR Gender Identity Not on file Sexual Orientation Not on file documented as of this encounter Last Filed Vital Signs Vital Sign Reading Time Taken Comments Blood Pressure 170/110 09/19/2005 10:00 AM FIELD TRAFFIC INVESTIGATOR Pulse 72 09/19/2005 10:00 AM FIELD TRAFFIC INVESTIGATOR Temperature 36.4 C (97.6 F) 09/19/2005 10:00 AM FIELD TRAFFIC INVESTIGATOR Respiratory Rate 12 09/19/2005 10:00 AM FIELD TRAFFIC INVESTIGATOR Oxygen Saturation - - Inhaled Oxygen Concentration - - Weight 84.8 kg (187 lb) 09/19/2005 10:00 AM FIELD TRAFFIC INVESTIGATOR Height - - Body Mass Index 29.29 06/13/2004 9:30 AM FIELD TRAFFIC INVESTIGATOR documented in this encounter Plan of Treatment Not on file documented as of this encounter Visit Diagnoses Not on filedocumented in this encounter Care Teams Personal Protection Specialist Relationship Specialty Start Date End Date Chance Medellin MD [address] [facility] [address] [place] [address] PCP - General Internal Medicine 04/28/16 documented as of this encounter
--- OUTSIDE RECORDS SUMMARY | 2024-08-29 12:08 | XMS_ITS | Encounter Summary ---
Author Organization [facility] Address [address] [place] [address] Care Team Providers Care Kitman Name Role Phone Chance Medellin MD Primary Care Provider [phone] Encounter Details Date Type Department Care Team (Late st Contact Info) Description 05/26/2004 Outpatient Historical [facility] Internal Medicine Medical [facility] [address] [facility] [address] [address] Nina Contreras MD Social History Tobacco Use Types Packs/Day Years Used Date Smoking Tobacco: Never Assessed Comments Unknown Sex and Gender Information Value Date Recorded Sex Assigned at Not on file Legal Sex Female 4:22 AM MANUFACTURING TECHNOLOGY PROFESSOR Gender Identity Not on file Sexual Orientation Not on file documented as of this encounter Plan of Treatment Not on file documented as of this encounter Visit Diagnoses Not on filedocumented in this encounter Care Teams Kitman Relationship Specialty Start Date End Date Chance Medellin MD [address] [facility] [address] [place] [address] PCP - General Internal Medicine 04/28/16 documented as of this encounter
--- OUTSIDE RECORDS SUMMARY | 2024-08-29 12:08 | XMS_ITS | Encounter Summary ---
Author Organization [facility] Address [address] [place] [address] Care Team Providers Care Steel Construction Worker Name Role Phone Chance Medellin MD Primary Care Provider [phone] Encounter Details Date Type Department Care Team (Latest Contact Info) Description 06/26/2006 Outpatient Historical HIS [facility] YENIFER Benitez, Nohemy Holman MD [address] [facility] [address] [place] [address] Encounter for Long-Term (Current) Use of Other Medications (Primary Dx) Social History Tobacco Use Types Packs/Day Years Used Date Smoking Tobacco: Never Assessed Comments Unknown Sex and Gender Information Value Date Recorded Sex Assigned at Not on file Legal Sex Female 4:22 AM PICKER AND SORTER LOAD AND UNLOAD Gender Identity Not on file Sexual Orientation Not on file documented as of this encounter Plan of Treatment Not on file documented as of this encounter Procedures Procedure Name Priority Date/Time Associated Diagnosis Comments TSH REFLEXIVE Routine 06/26/2006 1:39 PM PICKER [employer] SORTER LOAD AND UNLOAD FOLATE RBC AND HEMATOCRIT Routine 06/26/2006 1:39 PM PICKER [employer] SORTER LOAD AND UNLOAD VITAMIN B12 LEVEL Routine 06/26/2006 1:3 9 PM PICKER [employer] SORTER LOAD AND UNLOAD documented in this encounter Results * (ABNORMAL) VITAMIN B12 (06/26/2006 1:39 PM PICKER [employer] SORTER LOAD AND UNLOAD) VITAMIN B12 236(L) 243 - 894 pg/mL INTERFACE SYSTEM Comment: It has been reported that between 5 to 10% of patients with values between 200 and 400 pg/mL may experience neuropsychiatric and hematologic abnormalities due to occult B12 deficiency. Less than 1% of patients with values above 400 pg/mL will have symptoms. 06/26/2006 1:39 PM P[employer]ER [employer] SORTER LOAD [employer] UNLOAD us Nohemy Benitez MD CHEMISTRY ORDERABLES Final Re sult Performing Organization Address [facility] Phone Number INTERFACE SYSTEM Refer to clinic/hospital department * TSH REFLEXIVE (06/26/2006 1:39 PM PICKER [employer] SORTER LOAD AND UNLOAD) TSH 3.03 0.27 - 4.20 uU/mL INTERFACE SYSTEM 06/26/2006 1:39 PM P[employer]ER [employer] SORTER LOAD [employer] UNLOAD us Nohemy Benitez MD CHEMISTRY ORDERABLES Final Re sult Performing Organization Address [facility] Phone Number INTERFACE SYSTEM Refer to clinic/hospital department * (ABNORMAL) FOLATE RBC AND HEMATOCRIT (06/26/2006 1:39 PM PICKER [employer] SORTER LOAD AND UNLOAD) HEMATOCRIT, FOLATE 33.6(L) 35.5 - 44.0 % INTERFACE SYSTEM RBC FOLATE 526(L) >=533 ng/mL INTERFACE SYSTEM Comment: RBC Folate Interpretation: Deficient <110 ng/mL 06/26/2006 1:39 PM P[employer]ER [employer] SORTER LOAD [employer] UNLOAD us Nohemy Benitez MD CHEMISTRY ORDERABLES Final Re sult Performing Organization Address [facility] Phone Number INTERFACE SYSTEM Refer to clinic/hospital department documented in this encounter Visit Diagnoses Diagnosis Encounter for long-term (current) use of other medications- Primary documented in this encounter Care Teams Steel Construction Worker Relationship Specialty Start Date End Date Chance Medellin MD [address] [address] PCP - General Internal Medicine 04/28/16 documented as of this encounter
--- OUTSIDE RECORDS SUMMARY | 2024-08-29 12:08 | XMS_ITS | Referral Summary ---
Author Organization [facility] [address] Address [address] [place] [address] Care Team Providers Care Media Services Director Name Role Phone Mykel Garcia Primary Care Provide r Allergies Active Allergy Reactions Criticality Noted Date Comments Adhesive Rash Medium 03/25/2020 Adhesive Tape-Silicones Other (See comments) Low Skin comes off Chlorthalidone Rash Medium 06/03/2021 Iodinated Contrast Media Hives,Unknown High 11/05/19 08 Iodine Hives,Itching,Rash Medium 03/25/2020 Iohexol Hives Medium 11/18/2021 Metoclopramide Hallucinations,Other (See comments) Medium 11/05/2007 Naproxen Swelling,Unknown Medium 11/05/2007 Medications diltiazem (TIAZAC) 240 mg 24 hr capsule Take 1 capsule (240 mg total) by mouth 2 (two) times a day 6 Active enalapril (VASOTEC) 20 mg tablet Take 1 tablet (20 mg total) by mouth 2 (two) times a day 6 Active doxazosin (CARDURA) 2 mg tablet Take 1 tablet (2 mg total) by mouth daily 6 Active aspirin 81 mg enteric coated tablet Take 1 tablet (81 mg total) by mouth daily Active omeprazole (PriLOSEC) 20 mg capsule Take by mouth daily 2 Active methylphenidate HCl (RITALIN) 10 mg tablet Take 1 tablet (10 mg total) by mouth daily 2 Active cyanocobalamin (Vitamin B-12) 1,000 mcg tablet Take 1 tablet (1,000 mcg total) by mouth daily Active atorvastatin (LIPITOR) 10 mg tablet Take 1 tablet (10 mg total) by mouth daily 2 Active Wixela Inhub 100-50 mcg/dose diskus inhaler 2 Active albuterol HFA (PROVENTIL HFA,VENTOLIN HFA,PROAIR HFA) 90 mcg/actuation inhaler Inhale 2 puffs every 4 (four) hours as needed 1 Active cetirizine (ZyrTEC) 10 mg tablet Take 1 tablet (10 mg total) by mouth daily Active cholecalciferol (VITAMIN D-3) 2000 unit tablet Take 1 tablet (2,000 Units total) by mouth daily 2 Active cholecalciferol (VITAMIN D-3) 50,000 unit capsule Take 1 capsule (50,000 Units total) by mouth once a week 3 Active guaiFENesin-code ine (GUAITUSS AC) liquid 100-10 mg/5 mL Take 5 mL by mouth every 6 (six) hours as needed 3 Active ergocalciferol (VITAMIN D) 50,000 unit capsule Take 1 capsule (50,000 Units total) by mouth once a week Active esomeprazole DR (NexIUM) 40 mg capsule Take 1 capsule (40 mg total) by mouth 2 (two) times a day 1 Active furosemide (LASIX) 40 mg tablet Take 1 tablet (40 mg total) by mouth daily Active ketorolac (ACULAR) 0.5 % ophthalmic solution 3 Active levalbuterol (XOPENEX HFA) 45 mcg/actuation inhaler Inhale 2 puffs every 6 (six) hours 1 Active lovastatin (MEVACOR) 20 mg tablet Take 1 tablet (20 mg total) by mouth nightly Active lovastatin (MEVACOR) 40 mg tablet Take 1 tablet (40 mg total) by mouth daily 5 Active methylPREDNISolo ne (MEDROL) 4 mg tablet 3 Active ofloxacin (OCUFLOX) 0.3 % ophthalmic solution 3 Active prednisoLONE acetate (PRED FORTE) 1 % ophthalmic suspension 3 Active benzonatate (TESSALON) 100 mg capsuleIndicatio ns:Cough Take 1 capsule (100 mg total) by mouth 3 (three) times a day as needed for cough 42 capsule 4 Active albuterol HFA (PROVENTIL HFA,VENTOLIN HFA,PROAIR HFA) 90 mcg/actuation inhalerIndicatio ns:Cough, unspecified type Inhale 2 puffs every 6 (six) hours as needed for wheezing or shortness of breath 18 g 4 Active Active Problems Problem Noted Date Diagnosed Date Benign hypertension with stage 3a chronic kidney disease 09/11/2022 Stage 3a chronic kidney disease (CKD) 09/11/2022 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 Esophageal stricture 08/17/2009 Overview (08/25/2023): She is status post dilatation. Chronic fatigue 08/17/2009 Overview (08/25/2023): Due to neurologic disorder: possibly MS. 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 Chronic kidney disease, stage II (mild) 11/05/19 08 Overview (08/25/2023): Had seen Dr. Mcghee but no longer will see him due to differences Memory loss 07/13/2006 Cobalamin deficiency 07/03/2006 Hypertension 06/13/2004 Overview (08/25/2023): No JUSTYNA US 2003 Nl LV fxn, no my abn echo 2003 No ischemia, LVEF 67% stress 2005 No ischemia, nl LV fxn, ZOE 04/28 Esophageal reflux 06/02/2004 Overview (08/25/2023): EGD 2005 Asthma 05/19/2004 Overview (08/25/2023): Adult onset. Dr. 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, unspecified 05/19/2004 Neurogenic bladder 05/19/2004 Immunizations Name Administration Dates Next Due DTaP, Unspecified 07/23/1998 H1N1 Inj 07/23/2009 Influenza, Quadrivalent, Split, Intramuscular ,05/05/2016 Influenza, Quadrivalent, Spl it, Preservative Free, Intramuscular 03/26/2020 Influenza, Trivalent, IM (MDV) 07/23/2013,2009 Influenza, Unspecified 06/30/2009 Pneumococcal Polysaccharide PPV23 04/26/2010 Tdap 11/18/2021,03/26/2020 Tetanus Toxoid, Unspecified 07/23/1998 Social History Tobacco Use Types Packs/Day Years Used Date Smoking Tobacco: Never Tobacco Cessation:Counseling Given: Not Answered Personal Safety Answer Date Recorded Getting School Help Needed Not on file 07/26 Comments Unknown Sex and Gender Information Value Date Recorded Sex Assigned at Not on file Legal Sex Female 7:45 PM SANFORIZER Gender Identity Not on file Sexual Orientation Not on file Last Filed Vital Signs Vital Sign Reading Time Taken Comments Blood Pressure 152/110 05/24/2024 9:32 AM CDT Pulse 118 05/24/2024 9:16 AM CDT Temperature 36.6 C (97.9 F) 05/24/2024 9:16 AM CDT Respiratory Rate 18 05/24/2024 9:16 AM CDT Oxygen Saturation 97% 05/24/2024 9:16 AM CDT Inhaled Oxygen Concentration - - Weight 98.4 kg (217 lb) 05/24/2024 9:16 AM CDT Height 170.2 cm (5' 7 ) 05/24/2024 9:16 AM CDT Body Mass Index 33.99 05/24/2024 9:16 AM CDT Plan of Treatment Not on file Insurance [facility] Member Subscriber Plan / Payer (Ef fective 2021-Present) Name:Lisa Holt Relation to Subscriber:Self Name:Lisa Holt Payer ID:[id number] (NAIC) Type:MEDICARE RISK OTHER Address: [address] [place] [id number] [facility] Care Teams Media Services Director Relationship Specialty Start Date End Date Mykel Garcia DO [address] [place] [id number] PCP - General Family Medicine 01/12/22
--- OUTSIDE RECORDS SUMMARY | 2024-08-29 12:08 | XMS_ITS | Encounter Summary ---
Author Organization [employer] Address 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 Gender Identity Not on file Sexual Orientation Not on file documented as of this encounter Plan of Treatment Not on file documented as of this encounter Procedures Procedure Name Priority Date/Time Associated Diagnosis Comments CBC WITH DIFFERENTIAL Routine 01/01/2006 5:40 AM CDT CBC WITH DIFFERENTIAL Routine 01/01/2006 5:40 AM CDT BASIC METABOLIC PANEL Routine 01/01/2006 5:40 AM CDT CBC WITH DIFFERENTIAL Routine 12/30/2005 6:43 AM CDT CBC WITH DIFFERENTIAL Routine 12/30/2005 6:43 AM CDT BASIC METABOLIC PANEL Routine 12/30/2005 6:43 AM CDT URINALYSIS WITH REFLEX CULTURE Routine 12/29/2005 11:11 PM CDT URINALYSIS W/REFLEX MICROSCOPIC Routine 12/29/2005 11:11 PM CDT documented in this encounter Results * (ABNORMAL) CBC WITH DIFFERENTIAL (01/01/2006 5:40 AM CDT) NEUTROPHILS 57 45 - 70 % INTERFAC E SYSTEM LYMPHOCYTES 23 16 - 45 % INTERFAC E SYSTEM MONOCYTES 15(H) 3 - 13 % INTERFACE SYSTEM EOSINOPHILS 5 0 - 7 % INTERFAC E SYSTEM BASOPHILS 0 0 - 2 % INTERFACE SYSTEM NEUTROPHIL ABSOLUTE 3.39 1.90 - 7.00 K/uL INTERFACE SYSTEM LYMPHOCYTE ABSOLUTE 1.36 0.70 - 4.50 K/uL INTERFACE SYSTEM MONOCYTE ABSOLUTE 0.89 0.10 - 1.30 K/uL INTERFACE SYSTEM EOSINOPHIL ABSOLUTE 0.27 0.00 - 0.70 K/uL INTERFACE SYSTEM BASOPHILS ABSOLUTE 0.02 0.00 - 0.20 K/uL INTERFACE SYSTEM 01/01/2006 5:40 AM CDT us Farrukh Huggins MD HEMATOLOGY ORDERABLES Final Resu lt INTERFACE SYSTEM Refer to clinic/hospital department * (ABNORMAL) CBC WITH DIFFERENTIAL (01/01/2006 5:40 AM CDT) WBC 5.9 4.0 - 9.8 K/uL INTERFACE SYSTEM RBC 3.81(L) 3.90 - 4.90 M/uL INTERFACE SYSTEM HEMOGLOBIN 11.2(L) 11.8 - 14.8 g/dL INTERFACE SYSTEM HEMATOCRIT 32.3(L) 35.5 - 44.0 % INTERFACE SYSTEM MCV 84.8 82.0 - 99.0 fL INTERFACE SYSTEM MCH 29.4 27.2 - 32.6 pg INTERFACE SYSTEM MCHC 34.7 31.5 - 35.5 % INTERFACE SYSTEM RDW 12.0 11.5 - 14.5 % INTERFACE SYSTEM RDW-STDEV 37.4 37.1 - 48.7 fL INTERFACE SYSTEM PLATELETS 285 140 - 350 K/uL INTERFACE SYSTEM MPV 9.9 9.3 - 12.4 fL INTERFACE SYSTEM 01/01/2006 5:40 AM CDT Farrukh Huggins MD HEMATOLOGY ORDERABLES Final Resu lt Performing Organization Address [facility] Phone Number INTERFACE SYSTEM Refer to clinic/hospital department * (ABNORMAL) BASIC METABOLIC PANEL (01/01/2006 5:40 AM CDT) GLUCOSE 99 65 - 99 mg/dL INTERFACE SYSTEM Comment:Note: Effective December 05, 2005, reference range now reflects a fasting st ate. CREATININE 1.0 0.4 - 1.2 mg/dL INTERFACE SYSTEM CALCIUM 8.4(L) 8.6 - 10.2 mg/dL INTERFACE SYSTEM BUN 8 6 - 20 mg/dL INTERFACE SYSTEM SODIUM 139 135 - 145 mmol/L INTERFACE SYSTEM POTASSIUM 3.5 3.5 - 4.9 mmol/L INTERFACE SYSTEM CHLORIDE 107 96 - 108 mmol/L INTERFACE SYSTEM CO2 26 22 - 30 mmol/L INTERFACE SYSTEM 01/01/2006 5:40 AM CDT Farrukh Huggins MD CHEMISTRY ORDERABLES Final Resul t Performing Organization Address [facility] Phone Number INTERFACE SYSTEM Refer to clinic/hospital department * (ABNORMAL) CBC WITH DIFFERENTIAL (12/30/2005 6:43 AM CDT) NEUTROPHILS 57 45 - 70 % INTERFAC E SYSTEM LYMPHOCYTES 20 16 - 45 % INTERFAC E SYSTEM MONOCYTES 19(H) 3 - 13 % INTERFACE SYSTEM EOSINOPHILS 4 0 - 7 % INTERFAC E SYSTEM BASOPHILS 0 0 - 2 % INTERFACE SYSTEM NEUTROPHIL ABSOLUTE 3.04 1.90 - 7.00 K/uL INTERFACE SYSTEM LYMPHOCYTE ABSOLUTE 1.05 0.70 - 4.50 K/uL INTERFACE SYSTEM MONOCYTE ABSOLUTE 1.00 0.10 - 1.30 K/uL INTERFACE SYSTEM EOSINOPHIL ABSOLUTE 0.19 0.00 - 0.70 K/uL INTERFACE SYSTEM BASOPHILS ABSOLUTE 0.02 0.00 - 0.20 K/uL INTERFACE SYSTEM 12/30/2005 6:43 AM CDT Iglesia Garibay MD HEMATOLOGY ORDERABLES Final Res ult Performing Organization Address [facility] Phone Number INTERFACE SYSTEM Refer to clinic/hospital department * CBC WITH DIFFERENTIAL (12/30/2005 6:43 AM CDT) WBC 5.3 4.0 - 9.8 K/uL INTERFACE SYSTEM RBC 4.16 3.90 - 4.90 M/uL INTERFACE SYSTEM HEMOGLOBIN 12.2 11.8 - 14.8 g/dL INTERFACE SYSTEM HEMATOCRIT 35.9 35.5 - 44.0 % INTERFACE SYSTEM MCV 86.3 82.0 - 99.0 fL INTERFACE SYSTEM MCH 29.3 27.2 - 32.6 pg INTERFACE SYSTEM MCHC 34.0 31.5 - 35.5 % INTERFACE SYSTEM RDW 12.3 11.5 - 14.5 % INTERFACE SYSTEM RDW-STDEV 39.0 37.1 - 48.7 fL INTERFACE SYSTEM PLATELETS 253 140 - 350 K/uL INTERFACE SYSTEM MPV 9.8 9.3 - 12.4 fL INTERFACE SYSTEM 12/30/2005 6:43 AM CDT Iglesia Garibay MD HEMATOLOGY ORDERABLES Final Res ult Performing Organization Address [facility] Phone Number INTERFACE SYSTEM Refer to clinic/hospital department * BASIC METABOLIC PANEL (12/30/2005 6:43 AM CDT) GLUCOSE 81 65 - 99 mg/dL INTERFACE SYSTEM Comment:Note: Effective December 05, 2005, reference range now reflects a fasting st ate. CREATININE 1.1 0.4 - 1.2 mg/dL INTERFACE SYSTEM CALCIUM 8.8 8.6 - 10.2 mg/dL INTERFACE SYSTEM BUN 19 6 - 20 mg/dL INTERFACE SYSTEM SODIUM 140 135 - 145 mmol/L INTERFACE SYSTEM POTASSIUM 3.6 3.5 - 4.9 mmol/L INTERFACE SYSTEM CHLORIDE 105 96 - 108 mmol/L INTERFACE SYSTEM CO2 26 22 - 30 mmol/L INTERFACE SYSTEM 12/30/2005 6:43 AM CDT Iglesia Garibay MD CHEMISTRY ORDERABLES Final Resu lt Performing Organization Address [facility] Phone Number INTERFACE SYSTEM Refer to clinic/hospital department * (ABNORMAL) URINALYSIS (12/29/2005 11:11 PM CDT) COLOR UA Yellow INTERFACE SYSTEM CLARITY UA Slt. Cloudy(A) Clear INTERFACE SYSTEM SPECIFIC GRAVITY UA 1.025 1.001 - 1.035 INTERFACE SYSTEM PH UA 5.5 5.0 - 8.0 INTERFACE SYSTEM LEUKOCYTE ESTERASE UA 3+(A) Negative INTERFACE SYSTEM NITRITE UA Negative Negative INTERFACE SYSTEM PROTEIN UA 1+(A) Negative INTERFACE SYSTEM GLUCOSE UA Negative Negative INTERFACE SYSTEM KETONES UA 4+(A) Negative INTERFACE SYSTEM UROBILINOGEN UA 2(H) <=1 mg/dL INTE RFACE SYSTEM BILIRUBIN UA Confirmed-1+ (A) Negative INTERFACE SYSTEM BLOOD UA 2+(A) Negative INTERFACE SYSTEM WBC UA >100(H) 0 - 5 /HPF INTERFACE SYSTEM RBC UA 6(H) 0 - 4 /HPF INTERFACE SYSTEM EPITHELIAL CELLS, URINE 2-5 /HPF INTERFACE SYSTEM 12/29/2005 11:1 1 PM CDT Iglesia Garibay MD URINE ORDERABLES Final Result Performing Organization Address [facility] Co de Phone Number INTERFACE SYSTEM Refer to clinic/hospital department * URINALYSIS WITH REFLEX CULTURE (12/29/2005 11:11 PM CDT) Pathologist [facility] URINE CULTURE ORDER Culture ordered INTERFACE SYSTEM Comment: Criteria for a reflex culture include one or more of the following: Abn ormal nitrite, leukocyte esterase, WBCs or RBCs. Lack of qualifying criteria does not exclude the possiblity of a urinary tract infection. Dilute urine, drug interference, etc. may decrease the sensitivity of the criteria analytes. 12/29/2005 11:1 1 PM CDT Iglesia Garibay MD URINE ORDERABLES Final Result Performing Organization Address [facility] Co de Phone Number INTERFACE SYSTEM Refer to clinic/hospital department documented in this encounter Visit Diagnoses Diagnosis Urinary tract infection, site not specified- Primary documented in this encounter Care Teams Supervisor [employer] Relationship Specialty Start Date End Date Chance Medellin MD [address] [address] PCP - General Internal Medicine 04/28/16 documented as of this encounter
--- OUTSIDE RECORDS SUMMARY | 2024-08-29 12:08 | XMS_ITS | Encounter Summary ---
Author Organization [facility] Address [address] [facility] Attn: Epic Prelude ADT [place] [address] Care Team Providers Care Packaging Operator Name Role Phone Chance Medellin MD Primary Care Provider [phone] Encounter Details Date Type Department Care Team (Latest Contact Info) Description 07/03/2006 Orders Only Nina Contreras MD Social History Tobacco Use Types Packs/Day Years Used Date Smoking Tobacco: Never Assessed Comments Unknown Sex and Gender Information Value Date Recorded Sex Assigned at Not on file Legal Sex Female 4:22 AM BUSINESS TRAVEL CONSULTANT Gender Identity Not on file Sexual Orientation Not on file documented as of this encounter Plan of Treatment Not on file documented as of this encounter Visit Diagnoses Not on filedocumented in this encounter Care Teams Packaging Operator Relationship Specialty Start Date End Date Chance Medellin MD [address] [address] PCP - General Internal Medicine 04/28/16 documented as of this encounter
--- OUTSIDE RECORDS SUMMARY | 2024-08-29 12:08 | XMS_ITS | Encounter Summary ---
Author Organization [employer] Address [address] [place] [address] Care Team Providers Care Mis Manager Name Role Phone Chance Medellin MD Primary Care Provider [phone] Encounter Details Date Type Department Care Team (Latest Contact Info) Description 01/11/2005 Outpatient Historical HIS CARDIOPULMONARY AkinyedeJavad MD [address] [facility] [address] [place] [address] PAIN IN LIMB (Primary Dx) Social History Tobacco Use Types Packs/Day Years Used Date Smoking Tobacco: Never Assessed Comments Unknown Sex and Gender Information Value Date Recorded Sex Assigned at Not on file Legal Sex Female 4:22 AM AGENTS' RECORDS CLERK Gender Identity Not on file Sexual Orientation Not on file documented as of this encounter Plan of Treatment Not on file documented as of this encounter Visit Diagnoses Diagnosis Pain in limb- Primary documented in this encounter Care Teams Mis Manager Relationship Specialty Start Date End Date Chance Medellin MD [address] [facility] [address] [place] [phone] PCP - General Internal Medicine 04/28/16 documented as of this encounter
--- OUTSIDE RECORDS SUMMARY | 2024-08-29 12:08 | XMS_ITS | Encounter Summary ---
Author Organization [facility] Address [address] [place] [address] Care Team Providers Care Cook Fast Food Name Role Phone Chance Medellin MD Primary Care Provider [phone] Encounter Details Date Type Department Care Team (Late st Contact Info) Description 09/15/2004 Outpatient Historical [facility] Support Serv. (Adt Cardiology-[facility]) [address] [place] [address] Ever Beltran MD [address] [address] [address] [place] [phone] Social History Tobacco Use Types Packs/Day Years Used Date Smoking Tobacco: Never Assessed Comments Unknown Sex and Gender Information Value Date Recorded Sex Assigned at Not on file Legal Sex Female 4:22 AM DEBONER Gender Identity Not on file Sexual Orientation Not on file documented as of this encounter Plan of Treatment Not on file documented as of this encounter Visit Diagnoses Not on filedocumented in this encounter Care Teams Cook Fast Food Relationship Specialty Start Date End Date Chance Medellin MD [address] [facility] [address] [place] [phone] PCP - General Internal Medicine 04/28/16 documented as of this encounter
--- OUTSIDE RECORDS SUMMARY | 2024-08-29 12:08 | XMS_ITS | Encounter Summary ---
Author Organization [facility] Address [address] [place] [address] Care Team Providers Care Chief Marketing Officer Name Role Phone Chance Medellin MD Primary Care Provider Encounter Details Date Type Department Care Team (Late st Contact Info) Description 08/08/2006 Outpatient Historical [facility] Internal Medicine Medical [facility] [address] [facility] [address] [address] Nina Contreras MD Social History Tobacco Use Types Packs/Day Years Used Date Smoking Tobacco: Never Assessed Comments Unknown Sex and Gender Information Value Date Recorded Sex Assigned at Not on file Legal Sex Female 4:22 AM INTERNET MANAGER Gender Identity Not on file Sexual Orientation Not on file documented as of this encounter Plan of Treatment Not on file documented as of this encounter Visit Diagnoses Not on filedocumented in this encounter Care Teams Chief Marketing Officer Relationship Specialty Start Date End Date Chance Medellin MD [address] [facility] [address] [place] [phone] PCP - General Internal Medicine 04/28/16 documented as of this encounter
--- OUTSIDE RECORDS SUMMARY | 2024-08-29 12:08 | XMS_ITS | Encounter Summary ---
Author Organization [employer] Address [address] [place] [address] Care Team Providers Care Chute Tender Name Role Phone Chance Medellin MD Primary Care Provider [phone] Encounter Details Date Type Department Care Team (Late st Contact Info) Description 12/19/2005 Outpatient Historical Division of Neurology [address] [facility] [address] [address] Nohemy Benitez MD [address] [facility] [address] [place] [address] Social History Tobacco Use Types Packs/Day Years Used Date Smoking Tobacco: Never Assessed Comments Unknown Sex and Gender Information Value Date Recorded Sex Assigned at Not on file Legal Sex Female 4:22 AM BICYCLE SERVICE TECHNICIAN Gender Identity Not on file Sexual Orientation Not on file documented as of this encounter Plan of Treatment Not on file documented as of this encounter Visit Diagnoses Not on filedocumented in this encounter Care Teams Chute Tender Relationship Specialty Start Date End Date Chance Medellin MD [address] [facility] [address] [place] [phone] PCP - General Internal Medicine 04/28/16 documented as of this encounter
--- OUTSIDE RECORDS SUMMARY | 2024-08-29 12:08 | XMS_ITS | Encounter Summary ---
Author Organization [facility] Address [address] [place] [address] Care Team Providers Care Furnace Installer Name Role Phone Mykel Garcia DO Primary Care Provider + Encounter Details Date Type Department Care Team (Late st Contact Info) Description 03/23/2022 MyChart Message Enc [facility] Medical Group Family & Internal Medicine [facility] [address] [place] [address] Mykel Garcia DO [address] [place] [address] Doxazosin Social History Tobacco Use Types Packs/Day Years [...] Total Score: 3 06/03/20 21 8:34 AM SUPPORT ENGINEER documented as of this encounter Care Teams Furnace Installer Relationship Specialty Start Date End Date Mykel Garcia DO [address] [place] [address] PCP - General FAMILY PRACTICE 03/26/20 documented as of this encounter
--- OUTSIDE RECORDS SUMMARY | 2024-08-29 12:08 | XMS_ITS | Encounter Summary ---
Author Organization [facility] Address [address] [place] [address] Care Team Providers Care Resin Mixer Name Role Phone Chance Medellin MD Primary Care Provider [phone] Encounter Details Date Type Department Care Team (Late st Contact Info) Description 12/11/2005 Outpatient [facility] [address] [place] [address] Dank Ling MD NO ADDRESS ON FILE Social History Tobacco Use Types Packs/Day Years Used Date Smoking Tobacco: Never Assessed Comments Unknown Sex and Gender Information Value Date Recorded Sex Assigned at Not on file Legal Sex Female 4:22 AM TRAIN DIRECTOR Gender Identity Not on file Sexual Orientation Not on file documented as of this encounter Plan of Treatment Not on file documented as of this encounter Visit Diagnoses Not on filedocumented in this encounter Care Teams Resin Mixer Relationship Specialty Start Date End Date Chance Medellin MD [address] [phone] PCP - General Internal Medicine 04/28/16 documented as of this encounter
--- OUTSIDE RECORDS SUMMARY | 2024-08-29 12:08 | XMS_ITS | Encounter Summary ---
Author Organization [facility] Address [address] [place] [address] Care Team Providers Care Edge Banding Machine Offbearer Name Role Phone Chance Medellin MD Primary Care Provider [phone] Encounter Details Date Type Department Care Team (Late st Contact Info) Description 07/09/[address] [facility] [address] [employer] [address] Nohemy Benitez MD [address] [facility] [address] [place] [address] Social History Tobacco Use Types Packs/Day Years Used Date Smoking Tobacco: Never Assessed Comments Unknown Sex and Gender Information Value Date Recorded Sex Assigned at Not on file Legal Sex Female 4:22 AM PROFESSIONAL BENEFITS SALES CONSULTANT Gender Identity Not on file Sexual Orientation Not on file documented as of this encounter Plan of Treatment Not on file documented as of this encounter Visit Diagnoses Not on filedocumented in this encounter Care Teams Edge Banding Machine Offbearer Relationship Specialty Start Date End Date Chance Medellin MD [address] [facility] [address] [place] [address] PCP - General Internal Medicine 04/28/16 documented as of this encounter
--- OUTSIDE RECORDS SUMMARY | 2024-08-29 12:08 | XMS_ITS | Encounter Summary ---
Author Organization [employer] Address [address] [place] [address] Care Team Providers Care Ornamental Metal Erector Apprentice Name Role Phone Chance Medellin MD Primary Care Provider [phone] Encounter Details Date Type Department Care Team (Late st Contact Info) Description 06/09/2005 Outpatient Historical Division of Neurology [address] [facility] [address] Nohemy Benitez MD [address] [facility] [address] [place] [address] Social History Tobacco Use Types Packs/Day Years Used Date Smoking Tobacco: Never Assessed Comments Unknown Sex and Gender Information Value Date Recorded Sex Assigned at Not on file Legal Sex Female 4:22 AM HOSPITAL CNA Gender Identity Not on file Sexual Orientation Not on file documented as of this encounter Plan of Treatment Not on file documented as of this encounter Visit Diagnoses Not on filedocumented in this encounter Care Teams Ornamental Metal Erector Apprentice Relationship Specialty Start Date End Date Chance Medellin MD [address] [facility] [address] [place] [address] PCP - General Internal Medicine 04/28/16 documented as of this encounter
--- OUTSIDE RECORDS SUMMARY | 2024-08-29 12:08 | XMS_ITS | Encounter Summary ---
Author Organization [facility] Address [address] [place] [address] Care Team Providers Care Dot Etcher Name Role Phone Chance Medellin MD Primary Care Provider [phone] Encounter Details Date Type Department Care Team (Late st Contact Info) Description 01/11/2005 Outpatient Historical [facility] Internal Medicine Medical [facility] [address] [facility] [address] [address] Nina Contreras MD Social History Tobacco Use Types Packs/Day Years Used Date Smoking Tobacco: Never Assessed Comments Unknown Sex and Gender Information Value Date Recorded Sex Assigned at Not on file Legal Sex Female 4:22 AM DE ICER FINISHER Gender Identity Not on file Sexual Orientation Not on file documented as of this encounter Plan of Treatment Not on file documented as of this encounter Visit Diagnoses Not on filedocumented in this encounter Care Teams Dot Etcher Relationship Specialty Start Date End Date Chance Medellin MD [address] [facility] [address] [place] [address] PCP - General Internal Medicine 04/28/16 documented as of this encounter
--- OUTSIDE RECORDS SUMMARY | 2024-08-29 12:08 | XMS_ITS | Encounter Summary ---
Author Organization [facility] Address [address] [place] [address] Care Team Providers Care Librarian Assistant Name Role Phone Chance Medellin MD Primary Care Provider [phone] Encounter Details Date Type Department Care Team (Latest Contact Info) Description 12/16/2004 Outpatient Historical [facility] YENIFER Turner, Daniel Goins MD 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 BUILDER Gender Identity Not on file Sexual Orientation Not on file documented as of this encounter Plan of Treatment Not on file documented as of this encounter Procedures Procedure Name Priority Date/Time Associated Diagnosis Comments BASIC METABOLIC PANEL Routine 12/16/2004 2:42 PM CDT documented in this encounter Results * (ABNORMAL) BASIC METABOLIC PANEL (12/16/2004 2:42 PM CDT) GLUCOSE 95 65 - 109 mg/dL INTERFACE SYSTEM CREATININE 1.1 0.4 - 1.2 mg/dL INTERFACE SYSTEM CALCIUM 9.0 8.6 - 10.2 mg/dL INTERFACE SYSTEM BUN 8 6 - 20 mg/dL INTERFACE SYSTEM SODIUM 141 135 - 145 mmol/L INTERFACE SYSTEM POTASSIUM 3.4(L) 3.5 - 4.9 mmol/L INTERFACE SYSTEM CHLORIDE 106 96 - 108 mmol/L INTERFACE SYSTEM CO2 28 22 - 30 mmol/L INTERFACE SYSTEM 12/16/2004 2:42 PM CDT us Daniel Turner MD CHEMISTRY ORDERABLES Final Re sult INTERFACE SYSTEM Refer to clinic/hospital department documented in this encounter Visit Diagnoses Diagnosis Essential hypertension, malignant- Primary documented in this encounter Care Teams Librarian Assistant Relationship Specialty Start Date End Date Chance Medellin MD [address] [address] PCP - General Internal Medicine 04/28/16 documented as of this encounter
--- OUTSIDE RECORDS SUMMARY | 2024-08-29 12:08 | XMS_ITS | Encounter Summary ---
Author Organization [facility] Address 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
--- OUTSIDE RECORDS SUMMARY | 2024-08-29 12:08 | XMS_ITS | Encounter Summary ---
Author Organization [facility] Address [address] [place] [address] Care Team Providers Care Marketing Sales Representative Name Role Phone Chance Medellin MD Primary Care Provider [phone] Encounter Details Date Type Department Care Team (Late st Contact Info) Description 07/13/2006 Outpatient Historical [facility] Internal Medicine Medical [facility] [address] [facility] [address] [address] Nina Contreras MD Social History Tobacco Use Types Packs/Day Years Used Date Smoking Tobacco: Never Assessed Comments Unknown Sex and Gender Information Value Date Recorded Sex Assigned at Not on file Legal Sex Female 4:22 AM ARTIFICIAL BREEDING TECHNICIAN Gender Identity Not on file Sexual Orientation Not on file documented as of this encounter Last Filed Vital Signs Vital Sign Reading Time Taken Comments Blood Pressure 140/90 07/13/2006 12:30 PM ARTIFICIAL BREEDING TECHNICIAN Pulse 72 07/13/2006 12:30 PM ARTIFICIAL BREEDING TECHNICIAN Temperature 36.2 C (97.2 F) 07/13/2006 12:30 PM ARTIFICIAL BREEDING TECHNICIAN Respiratory Rate - - Oxygen Saturation - - Inhaled Oxygen Concentration - - Weight 86.6 kg (191 lb) 07/13/2006 12:30 PM ARTIFICIAL BREEDING TECHNICIAN Height - - Body Mass Index 29.91 06/13/2004 9:30 AM ARTIFICIAL BREEDING TECHNICIAN documented in this encounter Plan of Treatment Not on file documented as of this encounter Visit Diagnoses Not on filedocumented in this encounter Care Teams Marketing Sales Representative Relationship Specialty Start Date End Date Chance Medellin MD [address] [facility] [address] [place] [address] PCP - General Internal Medicine 04/28/16 documented as of this encounter
--- OUTSIDE RECORDS SUMMARY | 2024-08-29 12:08 | XMS_ITS | Encounter Summary ---
Author Organization [facility] Address [address] [place] [address] Care Team Providers Care Blindstitch Machine Operator Name Role Phone Chance Medellin MD Primary Care Provider [phone] Encounter Details Date Type Department Care Team (Late st Contact Info) Description 12/30/2005 Outpatient Historical [facility] Internal Medicine Medical [facility] [address] [facility] [address] Ever Reddy MD NO ADDRESS ON FILE Social History Tobacco Use Types Packs/Day Years Used Date Smoking Tobacco: Never Assessed Comments Unknown Sex and Gender Information Value Date Recorded Sex Assigned at Not on file Legal Sex Female 4:22 AM DIRECTOR OF ENROLLMENT Gender Identity Not on file Sexual Orientation Not on file documented as of this encounter Plan of Treatment Not on file documented as of this encounter Visit Diagnoses Not on filedocumented in this encounter Care Teams Blindstitch Machine Operator Relationship Specialty Start Date End Date Chance Medellin MD [address] [facility] [address] [place] [phone] PCP - General Internal Medicine 04/28/16 documented as of this encounter
--- OUTSIDE RECORDS SUMMARY | 2024-08-29 12:08 | XMS_ITS | Encounter Summary ---
Author Organization [facility] Address [address] 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
--- OUTSIDE RECORDS SUMMARY | 2024-08-29 12:08 | XMS_ITS | Encounter Summary ---
Author Organization [employer] Address [address] [place] [address] Care Team Providers Care Char Conveyor Tender Name Role Phone Chance Medellin MD Primary Care Provider [phone] Encounter Details Date Type Department Care Team (Late st Contact Info) Description 10/17/2004 Outpatient Historical [facility] Moy Thomas MD [address] [place] [address] ESOPHAGITIS, UNSPECIFIED (Primary Dx) Social History Tobacco Use Types Packs/Day Years Used Date Smoking Tobacco: Never Assessed Comments Unknown Sex and Gender Information Value Date Recorded Sex Assigned at Not on file Legal Sex Female 4: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
--- OUTSIDE RECORDS SUMMARY | 2024-08-29 12:08 | XMS_ITS | Encounter Summary ---
Author Organization [facility] Address [address] [place] [address] Care Team Providers Care Liquor Establishment Manager Name Role Phone Mykel Garcia DO Primary Care Provider + Encounter Details Date Type Department Care Team (Late st Contact Info) Description 01/17/2023 MyChart Message Enc [facility] Medical [facility] [address] [place], [place] [address] [employer] Provider Air Quality Message Social History Tobacco Use Types Packs/Day Years [...] Date Recorded Patient Health Questionnaire-2 Score 0 09/11/2022 Comments No Sex and Gender Information Value Date Recorded Sex Assigned at Not on file Legal Sex Female 8:32 PM CDT Gender Identity Not on file Sexual Orientation Not on file COVID-19 Exposure Response Date Recorded In the last 10 days, have yo u been in contact with someone who was confirmed or suspected to have Coronavirus/COVID-19? No / Unsure 12/27/2022 6:57 AM CDT documented as of this encounter Plan of [...] Total Score: 3 06/03/20 21 8:34 AM SAMPLE EXAMINER documented as of this encounter Care Teams Liquor Establishment Manager Relationship Specialty Start Date End Date Mykel Garcia DO [address] [place] [address] PCP - General FAMILY PRACTICE 03/26/20 documented as of this encounter
--- OUTSIDE RECORDS SUMMARY | 2024-08-29 12:08 | XMS_ITS | Encounter Summary ---
Author Organization [employer] Address [address] [place] [address] Care Team Providers Care Mental Health Aide Name Role Phone Chance Medellin MD Primary Care Provider [phone] Encounter Details Date Type Department Care Team (Late st Contact Info) Description 12/07/2005 Outpatient Historical [facility] 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
--- OUTSIDE RECORDS SUMMARY | 2024-08-29 12:08 | XMS_ITS | Encounter Summary ---
Author Organization [facility] Address [address] [place] [address] Care Team Providers Care Solderer Dipper Name Role Phone Chance Medellin MD Primary Care Provider [phone] Encounter Details Date Type Department Care Team (Late st Contact Info) Description 07/18/2006 Outpatient Historical [facility] Internal Medicine Medical [facility] [address] [facility] [address] [address] Nina Contreras MD Social History Tobacco Use Types Packs/Day Years Used Date Smoking Tobacco: Never Assessed Comments Unknown Sex and Gender Information Value Date Recorded Sex Assigned at Not on file Legal Sex Female 4:22 AM DIRECTOR TRANSLATIONAL Gender Identity Not on file Sexual Orientation Not on file documented as of this encounter Plan of Treatment Not on file documented as of this encounter Visit Diagnoses Not on filedocumented in this encounter Care Teams Solderer Dipper Relationship Specialty Start Date End Date Chance Medellin MD [address] [facility] [address] [place] [address] PCP - General Internal Medicine 04/28/16 documented as of this encounter
--- OUTSIDE RECORDS SUMMARY | 2024-08-29 12:08 | XMS_ITS | Encounter Summary ---
Author Organization [facility] Address [address] [place] [address] Care Team Providers Care Metalworker Name Role Phone Chance Medellin MD Primary Care Provider [phone] Encounter Details Date Type Department Care Team (Latest Contact Info) Description 09/29/2004 Outpatient Historical [facility] Nina Garcia MD COAGULAT DEFECT NEC/NOS (Primary Dx) Social History Tobacco Use Types Packs/Day Years Used Date Smoking Tobacco: Never Assessed Comments Unknown Sex and Gender Information Value Date Recorded Sex Assigned at Not on file Legal Sex Female 4:22 AM HOME DAY CARE PROVIDER Gender Identity Not on file Sexual Orientation Not on file documented as of this encounter Plan of Treatment Not on file documented as of this encounter Procedures Procedure Name Priority Date/Time Associated Diagnosis Comments PT AND APTT Routine 09/29/2004 10:53 AM HOME DAY CARE PROVIDER CBC WITH DIFFERENTIAL Routine 09/29/2004 10:53 AM HOME DAY CARE PROVIDER CBC WITH DIFFERENTIAL Routine 09/29/2004 10:53 AM HOME DAY CARE PROVIDER PROTHROMBIN FACTOR II MUTATION ANALYSIS Routine 09/29/2004 10:42 AM HOME DAY CARE PROVIDER documented in this encounter Results * CBC WITH DIFFERENTIAL (09/29/2004 10:53 AM HOME DAY CARE PROVIDER) NEUTROPHILS 58 45 - 70 % INTERFAC E SYSTEM LYMPHOCYTES 31 16 - 45 % INTERFAC E SYSTEM MONOCYTES 10 3 - 13 % INTERFACE SYSTEM EOSINOPHILS 1 0 - 7 % INTERFAC E SYSTEM BASOPHILS 1 0 - 2 % INTERFACE SYSTEM NEUTROPHIL ABSOLUTE 3.28 1.90 - 7.00 K/uL INTERFACE SYSTEM LYMPHOCYTE ABSOLUTE 1.74 0.70 - 4.50 K/uL INTERFACE SYSTEM MONOCYTE ABSOLUTE 0.56 0.10 - 1.30 K/uL INTERFACE SYSTEM EOSINOPHIL ABSOLUTE 0.08 0.00 - 0.70 K/uL INTERFACE SYSTEM BASOPHILS ABSOLUTE 0.04 0.00 - 0.20 K/uL INTERFACE SYSTEM 09/29/2004 10:5 3 AM HOME DAY CARE PROVIDER Nina Contreras MD HEMATOLOGY ORDERABLES Final R esult INTERFACE SYSTEM Refer to clinic/hospital department * CBC WITH DIFFERENTIAL (09/29/2004 10:53 AM HOME DAY CARE PROVIDER) WBC 5.7 4.0 - 9.8 K/uL INTERFACE SYSTEM RBC 4.63 3.90 - 4.90 M/uL INTERFACE SYSTEM HEMOGLOBIN 13.7 11.8 - 14.8 g/dL INTERFACE SYSTEM HEMATOCRIT 39.9 35.5 - 44.0 % INTERFACE SYSTEM MCV 86.2 82.0 - 99.0 fL INTERFACE SYSTEM MCH 29.6 27.2 - 32.6 pg INTERFACE SYSTEM MCHC 34.3 31.5 - 35.5 % INTERFACE SYSTEM RDW 12.3 11.5 - 14.5 % INTERFACE SYSTEM RDW-STDEV 38.6 37.1 - 48.7 fL INTERFACE SYSTEM PLATELETS 301 140 - 350 K/uL INTERFACE SYSTEM MPV 10.3 9.3 - 12.4 fL INTERFACE SYSTEM 09/29/2004 10:5 3 AM HOME DAY CARE PROVIDER Nina Contreras MD HEMATOLOGY ORDERABLES Final R esult INTERFACE SYSTEM Refer to clinic/hospital department * PT AND APTT (09/29/2004 10:53 AM HOME DAY CARE PROVIDER) PROTIME 14.0 12.9 - 15.7 Seconds INTERFACE SYSTEM INR 1.0 0.9 - 1.1 INTERFACE SYSTEM Comment: INR Therapeutic Range: Adult: 2.0 - 3.0 for pulmonary embolism or prophylaxis against venous thrombosis or systemic embolization. 2.0 - 3.0 for patients with tissue heart valves. 3.0 - 4.5 for patients with mechanical heart valves. Pediatric (12 years and under): 1.5 - 3.0 Although the target range in children is not well established, INR values of 1.5 - 3.0 are recommended for most patients. Higher values have been used in children with prosthetic cardiac valves and hereditary clotting disorders. (<3 days) therapeutic ranges have not been established. PTT 34.5 25.0 - 35.0 Seconds INTERFACE SYSTEM Comment: PTT Therapeutic Range: Heparin Level PTT (seconds) <0.10 units/mL <45 0.10 - 0.30 units/mL 45 - 65 0.30 - 0.70 units/mL* 65 - 106* 0.70 - 1.00 units/mL 106 - 137 *corresponds to therapeutic range for unfractionated heparin 09/29/2004 10:5 3 AM HOME DAY CARE PROVIDER Nina Contreras MD HEMATOLOGY ORDERABLES Final R esult Performing Organization Address City/[facility]/ZIP Co de Phone Number INTERFACE SYSTEM Refer to clinic/hospital department * (ABNORMAL) PROTHROMBIN FACTOR II MUTATION ANALYSIS (09/29/2004 10:42 AM HOME DAY CARE PROVIDER) PROTHROMBIN FACTOR II MUTATION ANALYSIS Pos/Heter ozygous(A ) Negative INTERFACE SYSTEM Comment: Mutation tested for is [id number]. Performed by [facility], [place], [place]. 09/29/2004 10:4 2 AM HOME DAY CARE PROVIDER Nina Contreras MD CHEMISTRY ORDERABLES Final Re sult INTERFACE SYSTEM Refer to clinic/hospital department documented in this encounter Visit Diagnoses Diagnosis Other and unspecified coagulation defects- Primary documented in this encounter Care Teams Metalworker Relationship Specialty Start Date End Date Chance Medellin MD [address] [facility] [address] [place] [address] PCP - General Internal Medicine 04/28/16 documented as of this encounter
--- OUTSIDE RECORDS SUMMARY | 2024-08-29 12:08 | XMS_ITS | Encounter Summary ---
Author Organization [facility] Address [address] [place] [address] Care Team Providers Care Sales Officer Name Role Phone Chance Medellin MD Primary Care Provider [phone] Encounter Details Date Type Department Care Team (Late st Contact Info) Description 01/01/2006 Outpatient Historical [facility] Internal Medicine Medical [facility] [address] [facility] [address] [phone] Nina Contreras MD Social History Tobacco Use Types Packs/Day Years Used Date Smoking Tobacco: Never Assessed Comments Unknown Sex and Gender Information Value Date Recorded Sex Assigned at Not on file Legal Sex Female 4:22 AM PRIVATE BRANCH EXCHANGE SERVICE ADVISER Gender Identity Not on file Sexual Orientation Not on file documented as of this encounter Plan of Treatment Not on file documented as of this encounter Visit Diagnoses Not on filedocumented in this encounter Care Teams Sales Officer Relationship Specialty Start Date End Date Chance Medellin MD [address] [facility] [address] [place] [phone] PCP - General Internal Medicine 04/28/16 documented as of this encounter
--- OUTSIDE RECORDS SUMMARY | 2024-08-29 12:08 | XMS_ITS | Clinical Summary ---
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 Vitamin D deficiency 03/25/2020 Prediabetes 01/18/2018 [...] on file Legal Sex Female 7:45 PM STRATEGIC MARKETING SPECIALIST Gender Identity Not on file Sexual Orientation Not on file Obstetrics History Last Filed Vital Signs Vital Sign Reading [...] 05/24/2024 9:16 AM CDT Plan of Treatment Health Maintenance Due Date Last Done Comments Breast Cancer Screening-Mammogram 1960 Cervical Cancer Screening 1960 Colon Cancer Screening-Colonoscopy 1960 Depression Screening 1960 Hepatitis C Screening 1960 Hepatitis B Screening 1978 Regular Well Visit/Exam 18-64 1978 Zoster Vaccine (1 of 2) 2010 Pneumococcal vaccine <65 (2 of 2 - PCV) 04/26/2011 04/26/2010 Covid-19 Vaccine (3 - 2023-2 5 season) 2024 05/25/2021, 09/27/2020 Influenza Vaccine (#1) 2024 , 05/19/2022, 03/26/2020, Additional history exists DTaP/Tdap/Td Vaccine (4 - Td or Tdap) 11/19/2031 11/18/2021, 03/26/2020, 07/23/1998, Additional history exists Insurance [facility] Care Teams Monotype Keyboard Operator Relationship Specialty Start Date End Date Mykel Garcia DO [address] [place] [phone] PCP - General Family Medicine 01/12/22
--- OUTSIDE RECORDS SUMMARY | 2024-08-29 12:08 | XMS_ITS | Encounter Summary ---
Author Organization [employer] Address [address] [place] [address] Care Team Providers Care Esthetician/Owner Name Role Phone Chance Medellin MD Primary Care Provider [phone] Encounter Details Date Type Department Care Team (Late st Contact Info) Description 2006 Outpatient Historical [facility] [address] [place] [address] Brad Adkins MD [address] [place] [address] Social History Tobacco Use Types Packs/Day Years Used Date Smoking Tobacco: Never Assessed Comments Unknown Sex and Gender Information Value Date Recorded Sex Assigned at Not on file Legal Sex Female 4:22 AM RN MEDICATION Gender Identity Not on file Sexual Orientation Not on file documented as of this encounter Plan of Treatment Not on file documented as of this encounter Visit Diagnoses Not on filedocumented in this encounter Care Teams Esthetician/Owner Relationship Specialty Start Date End Date Chance Medellin MD [address] [facility] [address] [place] [address] PCP - General Internal Medicine 04/28/16 documented as of this encounter
--- OUTSIDE RECORDS SUMMARY | 2024-08-29 12:08 | XMS_ITS | Encounter Summary ---
Author Organization [employer] Address [address] [place] [address] Care Team Providers Care Speech Lang Path Therapist Name Role Phone Chance Medellin MD Primary Care Provider [phone] Encounter Details Date Type Department Care Team (Late st Contact Info) Description 08/29/2004 Outpatient Historical [facility] Moy [place] MD [address] [place] [address] KLEIN'S ESOPHAGUS (Primary Dx) Social History Tobacco Use Types Packs/Day Years Used Date Smoking Tobacco: Never Assessed Comments Unknown Sex and Gender Information Value Date Recorded Sex Assigned at Not on file Legal Sex Female 4: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
--- OUTSIDE RECORDS SUMMARY | 2024-08-29 12:08 | XMS_ITS | Encounter Summary ---
Author Organization [facility] Address [address] [place] [address] Care Team Providers Care English Drawer Name Role Phone Chance Medellin MD Primary Care Provider [phone] Encounter Details Date Type Department Care Team (Late st Contact Info) Description 06/13/2004 Outpatient Historical [facility] Internal Medicine Medical [facility] [address] [facility] [address] [address] Nina Contreras MD Social History Tobacco Use Types Packs/Day Years Used Date Smoking Tobacco: Never Assessed Comments Unknown Sex and Gender Information Value Date Recorded Sex Assigned at Not on file Legal Sex Female 4:22 AM NUTRITION DIRECTOR Gender Identity Not on file Sexual Orientation Not on file documented as of this encounter Last Filed Vital Signs Vital Sign Reading Time Taken Comments Blood Pressure 160/98 06/13/2004 9:30 AM NUTRITION DIRECTOR Pulse 70 06/13/2004 9:30 AM NUTRITION DIRECTOR Temperature 36.8 C (98.2 F) 06/13/2004 9:30 AM NUTRITION DIRECTOR Respiratory Rate - - Oxygen Saturation - - Inhaled Oxygen Concentration - - Weight 86.2 kg (190 lb) 06/13/2004 9:30 AM NUTRITION DIRECTOR Height 170.2 cm (5' 7 ) 06/13/2004 9:30 AM NUTRITION DIRECTOR Body Mass Index 29.76 06/13/2004 9:30 AM NUTRITION DIRECTOR documented in this encounter Plan of Treatment Not on file documented as of this encounter Visit Diagnoses Not on filedocumented in this encounter Care Teams English Drawer Relationship Specialty Start Date End Date Chance Medellin MD [address] [facility] [address] [place] [phone] PCP - General Internal Medicine 04/28/16 documented as of this encounter
--- OUTSIDE RECORDS SUMMARY | 2024-08-29 12:08 | XMS_ITS | Encounter Summary ---
Author Organization [employer] Address [address] [place] [address] Care Team Providers Care Store Operations Manager Name Role Phone Chance Medellin MD Primary Care Provider [phone] Encounter Details Date Type Department Care Team (Latest Contact Info) Description 08/08/2006 Outpatient Historical [facility] Nina Contreras MD Special Screening for Osteoporosis (Primary Dx) Social History Tobacco Use Types Packs/Day Years Used Date Smoking Tobacco: Never Assessed Comments Unknown Sex and Gender Information Value Date Recorded Sex Assigned at Not on file Legal Sex Female 4:22 AM PLUG MAKING OPERATOR Gender Identity Not on file Sexual Orientation Not on file documented as of this encounter Plan of Treatment Not on file documented as of this encounter Visit Diagnoses Diagnosis Special screening for osteoporosis- Primary documented in this encounter Care Teams Store Operations Manager Relationship Specialty Start Date End Date Chance Medellin MD [address] [facility] [address] [place] [phone] PCP - General Internal Medicine 04/28/16 documented as of this encounter
--- OUTSIDE RECORDS SUMMARY | 2024-08-29 12:08 | XMS_ITS | Encounter Summary ---
Author Organization [facility] Address [address] [place] [address] Care Team Providers Care Plate Fitter Name Role Phone Chance Medellin MD Primary Care Provider [phone] Encounter Details Date Type Department Care Team (Late st Contact Info) Description 07/25/2006 Outpatient Historical [facility] Internal Medicine Medical [facility] [address] [facility] [address] [phone] Nina Contreras MD Social History Tobacco Use Types Packs/Day Years Used Date Smoking Tobacco: Never Assessed Comments Unknown Sex and Gender Information Value Date Recorded Sex Assigned at Not on file Legal Sex Female 4:22 AM FIELD CHECKER Gender Identity Not on file Sexual Orientation Not on file documented as of this encounter Plan of Treatment Not on file documented as of this encounter Visit Diagnoses Not on filedocumented in this encounter Care Teams Plate Fitter Relationship Specialty Start Date End Date Chance Medellin MD [address] [facility] [address] [place] [phone] PCP - General Internal Medicine 04/28/16 documented as of this encounter
--- OUTSIDE RECORDS SUMMARY | 2024-08-29 12:08 | XMS_ITS | Encounter Summary ---
Author Organization [facility] Address [address] [place] [address] Care Team Providers Care Louver Door Assembler Name Role Phone Mykel Garcia DO Primary Care Provider + Encounter Details Date Type Department Care Team (Late st Contact Info) Description 12/09/2021 [employer] Message Enc [facility] Family & Internal Medicine [facility] [address] [place] [address] Mykel Garcia DO [address] [place] [address] Generic Advair Social History Tobacco Use Types Packs/Day Years [...] suspected to have Coronavirus/COVID-19? No / Unsure 12/07/2021 6:52 AM CDT documented as of this encounter Progress Notes * Mykel Garcia DO - 12/09/2021 3:16 PM CDT Sent in separate task; looks like it was errantly removed from list. documented in this encounter Plan of Treatment Not on file documented as of this encounter Visit Diagnoses Not on filedocumented in this encounter Additional Health Concerns Infection Onset Date Last Indicated Resolved Time COVID-19 Rule Out 05/09/2023 05/09/2023 05/09/2023 11:39 AM CDT COVID-19 Rule Out 05/09/2023 05/09/2023 05/10/2023 3:31 PM CDT Assessment Noted Time PHQ-9 Depression Total Score: 3 06/03/20 21 8:34 AM CROSSCUTTER ROLLED GLASS documented as of this encounter Care Teams Louver Door Assembler Relationship Specialty Start Date End Date Mykel Garcia DO [address] [place] [address] PCP - General FAMILY PRACTICE 03/26/20 documented as of this encounter
--- OUTSIDE RECORDS SUMMARY | 2024-08-29 12:08 | XMS_ITS | Encounter Summary ---
Author Organization [email or web address] Address [address] [place] [address] Care Team Providers Care Junior Web Developer Name Role Phone Chance Medellin MD Primary Care Provider [phone] Encounter Details Date Type Department Care Team (Late st Contact Info) Description 06/26/2006 Outpatient Historical Division of Neurology [address] [address] Nohemy Benitez MD [address] [facility] [address] [place] [address] Social History Tobacco Use Types Packs/Day Years Used Date Smoking Tobacco: Never Assessed Comments Unknown Sex and Gender Information Value Date Recorded Sex Assigned at Not on file Legal Sex Female 4:22 AM INPUT OUTPUT CLERK Gender Identity Not on file Sexual Orientation Not on file documented as of this encounter Plan of Treatment Not on file documented as of this encounter Visit Diagnoses Not on filedocumented in this encounter Care Teams Junior Web Developer Relationship Specialty Start Date End Date Chance Medellin MD [address] [facility] [address] [place] [phone] PCP - General Internal Medicine 04/28/16 documented as of this encounter
--- OUTSIDE RECORDS SUMMARY | 2024-08-29 12:08 | XMS_ITS | Encounter Summary ---
Author Organization [facility] Address [address] [place] [address] Care Team Providers Care Chip Washer Name Role Phone Chance Medellin MD Primary Care Provider [phone] Encounter Details Date Type Department Care Team (Latest Contact Info) Description 05/17/2004 Outpatient Historical [facility] YENIFER Bialey, Kenyon Holman MD NO ADDRESS ON FILE SCREENING MAMM-MAILG NEOPL-OTHER (Primary Dx) Social History Tobacco Use Types Packs/Day Years Used Date Smoking Tobacco: Never Assessed Comments Unknown Sex and Gender Information Value Date Recorded Sex Assigned at Not on file Legal Sex Female 4:22 AM MACHINE TANK OPERATOR Gender Identity Not on file Sexual Orientation Not on file documented as of this encounter Plan of Treatment Not on file documented as of this encounter Visit Diagnoses Diagnosis Other screening mammogram- Primary documented in this encounter Care Teams Chip Washer Relationship Specialty Start Date End Date Chance Medellin MD [address] [facility] [address] [place] [phone] PCP - General Internal Medicine 04/28/16 documented as of this encounter
--- OUTSIDE RECORDS SUMMARY | 2024-08-29 12:08 | XMS_ITS | Encounter Summary ---
Author Organization [facility] Address [address] [place] [address] Care Team Providers Care Gripper Attacher Name Role Phone Chance Medellin MD Primary Care Provider [phone] Encounter Details Date Type Department Care Team (Late st Contact Info) Description 06/02/2004 Outpatient Historical [facility] Internal Medicine Medical [facility] [address] [facility] [address] [address] Nina Contreras MD Social History Tobacco Use Types Packs/Day Years Used Date Smoking Tobacco: Never Assessed Comments Unknown Sex and Gender Information Value Date Recorded Sex Assigned at Not on file Legal Sex Female 4:22 AM SYSTEMS MANAGEMENT CONSULTANT Gender Identity Not on file Sexual Orientation Not on file documented as of this encounter Last Filed Vital Signs Vital Sign Reading Time Taken Comments Blood Pressure 180/112 06/02/2004 9:30 AM SYSTEMS MANAGEMENT CONSULTANT Pulse 72 06/02/2004 9:30 AM SYSTEMS MANAGEMENT CONSULTANT Temperature - - Respiratory Rate 18 06/02/2004 9:30 AM SYSTEMS MANAGEMENT CONSULTANT Oxygen Saturation - - Inhaled Oxygen Concentration - - Weight 86.6 kg (191 lb) 06/02/2004 9:30 AM SYSTEMS MANAGEMENT CONSULTANT Height 170.2 cm (5' 7 ) 06/02/2004 9:30 AM SYSTEMS MANAGEMENT CONSULTANT Body Mass Index 29.91 06/02/2004 9:30 AM SYSTEMS MANAGEMENT CONSULTANT documented in this encounter Plan of Treatment Not on file documented as of this encounter Visit Diagnoses Not on filedocumented in this encounter Care Teams Gripper Attacher Relationship Specialty Start Date End Date Chance Medellin MD [address] [facility] [address] [place] [phone] PCP - General Internal Medicine 04/28/16 documented as of this encounter
--- OUTSIDE RECORDS SUMMARY | 2024-08-29 12:08 | XMS_ITS | Encounter Summary ---
Author Organization [facility] Address [address] [place] [address] Care Team Providers Care Valve Setter Name Role Phone Chance Medellin MD Primary Care Provider [phone] Encounter Details Date Type Department Care Team (Late st Contact Info) Description 01/11/2005 Outpatient Historical [facility] Blood Flow [address] [place] [phone] Luis Daniel Dunne MD NO ADDRESS ON FILE Social History Tobacco Use Types Packs/Day Years Used Date Smoking Tobacco: Never Assessed Comments Unknown Sex and Gender Information Value Date Recorded Sex Assigned at Not on file Legal Sex Female 4:22 AM LOAN REVIEWER Gender Identity Not on file Sexual Orientation Not on file documented as of this encounter Plan of Treatment Not on file documented as of this encounter Visit Diagnoses Not on filedocumented in this encounter Care Teams Valve Setter Relationship Specialty Start Date End Date Chance Medellin MD [address] [facility] [address] [place] [phone] PCP - General Internal Medicine 04/28/16 documented as of this encounter
--- OUTSIDE RECORDS SUMMARY | 2024-08-29 12:08 | XMS_ITS | Encounter Summary ---
Author Organization [employer] Address [address] [place] [address] Care Team Providers Care Human Resources Support Specialist Name Role Phone Chance Medellin MD Primary Care Provider [phone] Encounter Details Date Type Department Care Team (Late st Contact Info) Description 07/24/2006 Outpatient Historical [facility] [address] [place] [address] Brad Adkins MD [address] [place] [address] Social History Tobacco Use Types Packs/Day Years Used Date Smoking Tobacco: Never Assessed Comments Unknown Sex and Gender Information Value Date Recorded Sex Assigned at Not on file Legal Sex Female 4:22 AM ASSOCIATE BIOLOGICAL SALES Gender Identity Not on file Sexual Orientation Not on file documented as of this encounter Plan of Treatment Not on file documented as of this encounter Visit Diagnoses Not on filedocumented in this encounter Care Teams Human Resources Support Specialist Relationship Specialty Start Date End Date Chance Medellin MD [address] [facility] [address] [place] [address] PCP - General Internal Medicine 04/28/16 documented as of this encounter
--- OUTSIDE RECORDS SUMMARY | 2024-08-29 12:08 | XMS_ITS | Encounter Summary ---
Author Organization [employer] [facility] Address [address] [place] [address] Care Team Providers Care Hog Man Name Role Phone Chance Medellin MD Primary Care Provider [phone] Encounter Details Date Type Department Care Team (Latest Contact Info) Description 08/01/2006 Outpatient Historical [facility] Kenyon Bailey MD NO ADDRESS ON FILE Excessive or Frequent Menstruation (Primary Dx) Social History Tobacco Use Types Packs/Day Years Used Date Smoking Tobacco: Never Assessed Comments Unknown Sex and Gender Information Value Date Recorded Sex Assigned at Not on file Legal Sex Female 4:22 AM EDGE GLUER Gender Identity Not on file Sexual Orientation Not on file documented as of this encounter Plan of Treatment Not on file documented as of this encounter Procedures Procedure Name Priority Date/Time Associated Diagnosis Comments POC , URINE Routine 08/01/2006 8:45 AM EDGE GLUER PT AND APTT Routine 08/01/2006 8:33 AM EDGE GLUER HEMOGLOBIN AND HEMATOCRIT Routine 07/18/2006 12:40 PM EDGE GLUER BASIC METABOLIC PANEL Routine 07/18/2006 12:40 PM EDGE GLUER documented in this encounter Results * POC , URINE (08/01/2006 8:45 AM EDGE GLUER) , URINE POC Negative Negative INTERFACE SYSTEM 08/01/2006 8:45 AM EDGE GLUER us Kenyon Bailey MD POINT OF CARE TESTING Edited Performing Organization Address [facility] de Phone Number INTERFACE SYSTEM Refer to clinic/hospital department * PT AND APTT (08/01/2006 8:33 AM EDGE GLUER) PROTIME 13.7 12.7 - 15.1 Seconds INTERFACE SYSTEM INR 1.0 0.9 - 1.1 INTERFACE SYSTEM Comment: INR Therapeutic Range: Adult: 2.0 - 3.0 for pulmonary embolism or prophylaxis against venous thrombosis or systemic embolization. 2.0 - 3.0 for patients with tissue heart valves. 2.5 - 3.5 for patients with mechanical heart valves or post [place]. Pediatric (12 years and under): 1.5 - 3.0 Although the target range in children is not well established , INR values of 1.5 - 3.0 are recommended for most patients. Higher values have been used in children with prosthetic cardiac valves and hereditary clotting disorders. (<3 days) therapeutic ranges have not been established. PTT 29.7 24.4 - 36.4 Seconds INTERFACE SYSTEM Comment: PTT Therapeutic Range: Heparin Level PTT (seconds) <0.10 units/mL <53 0.10 - 0.30 units/mL 53 - 67 0.30 - 0.70 units/mL* 67 - 95* 0.70 - 1.00 units/mL 95 - 116 *corresponds to therapeutic range for unfractionated heparin 08/01/2006 8:33 AM EDGE GLUER us Kenyon Bailey MD HEMATOLOGY ORDERABLES Edited Performing Organization Address [facility] Phone Number INTERFACE SYSTEM Refer to clinic/hospital department * (ABNORMAL) BASIC METABOLIC PANEL (07/18/2006 12:40 PM EDGE GLUER) GLUCOSE 104(H) 65 - 99 mg/dL INTERFACE SYSTEM CREATININE 1.00(H) 0.51 - 0.95 mg/dL INTERFACE SYSTEM CALCIUM 9.4 8.4 - 10.2 mg/dL INTERFACE SYSTEM BUN 9 6 - 20 mg/dL INTERFACE SYSTEM SODIUM 140 135 - 145 mmol/L INTERFACE SYSTEM POTASSIUM 3.9 3.5 - 4.9 mmol/L INTERFACE SYSTEM CHLORIDE 107 96 - 108 mmol/L INTERFACE SYSTEM CO2 24 22 - 30 mmol/L INTERFACE SYSTEM GFR, >60 >=60 mL/min/1. 7 sq meter INTERFACE SYSTEM GFR 60 >=60 mL/min/1. 7 sq meter INTERFACE SYSTEM Comment: Estimated GFR rate interpretative information for both Americans and non- Americans is available on the [facility] Intranet at: [email or web address] Select: Lab Policies and Procedures Select: Reference Ranges - GFR 07/18/2006 12:4 0 PM EDGE GLUER us Kenyon Bailey MD CHEMISTRY ORDERABLES Final R esult INTERFACE SYSTEM Refer to clinic/hospital department * (ABNORMAL) HEMOGLOBIN AND HEMATOCRIT (07/18/2006 12:40 PM EDGE GLUER) HEMOGLOBIN 11.9 11.8 - 14.8 g/dL INTERFACE SYSTEM HEMATOCRIT 34.1(L) 35.5 - 44.0 % INTERFACE SYSTEM 07/18/2006 12:4 0 PM EDGE GLUER us Kenyon Bailey MD HEMATOLOGY ORDERABLES Final Result Performing Organization Address [facility] Co de Phone Number INTERFACE SYSTEM Refer to clinic/hospital department documented in this encounter Visit Diagnoses Diagnosis Excessive or frequent menstruation- Primary documented in this encounter Care Teams Hog Man Relationship Specialty Start Date End Date Chance Medellin MD [address] [phone] PCP - General Internal Medicine 04/28/16 documented as of this encounter
--- OUTSIDE RECORDS SUMMARY | 2024-08-29 12:08 | XMS_ITS | Encounter Summary ---
Author Organization [employer] Address 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) Social History Tobacco Use Types Packs/Day Years Used Date Smoking Tobacco: Never Assessed Comments Unknown Sex and Gender Information Value Date Recorded Sex Assigned at Not on file Legal Sex Female 4:22 AM MID LEVEL CLINICIAN Gender Identity Not on file Sexual Orientation Not on file documented as of this encounter Plan of Treatment Not on file documented as of this encounter Visit Diagnoses Diagnosis Lumbosacral spondylosis without myelopathy- Primary documented in this encounter Care Teams Surgeon Chief Relationship Specialty Start Date End Date Chance Medellin MD [address] [facility] [address] [place] [phone] PCP - General Internal Medicine 04/28/16 documented as of this encounter
--- OUTSIDE RECORDS SUMMARY | 2024-08-29 12:08 | XMS_ITS | Encounter Summary ---
Author Organization [employer] [facility] Address [address] [place] [address] Care Team Providers Care Lead Ruby On Rails Developer Name Role Phone Chance Medellin MD Primary Care Provider [phone] Encounter Details Date Type Department Care Team (Late st Contact Info) Description 05/24/2004 Outpatient Historical [facility] Nina Contreras MD LEANDRA ESOPH FISTULA/ATRES (Primary Dx) Social History Tobacco Use Types Packs/Day Years Used Date Smoking Tobacco: Never Assessed Comments Unknown Sex and Gender Information Value Date Recorded Sex Assigned at Not on file Legal Sex Female 4:22 AM HIGH SCHOOL ACADEMIC COACH Gender Identity Not on file Sexual Orientation Not on file documented as of this encounter Plan of Treatment Not on file documented as of this encounter Visit Diagnoses Diagnosis Congenital tracheoesophageal fistula, esophageal atresia and stenosis- Primary documented in this encounter Care Teams Lead Ruby On Rails Developer Relationship Specialty Start Date End Date Chance Medellin MD [address] [facility] [address] [place] [phone] PCP - General Internal Medicine 04/28/16 documented as of this encounter
--- OUTSIDE RECORDS SUMMARY | 2024-08-29 12:08 | XMS_ITS | Encounter Summary ---
Author Organization [facility] Address [address] [place] [address] Care Team Providers Care Implementation Project Coordinator Name Role Phone Chance Medellin MD Primary Care Provider [phone] Encounter Details Date Type Department Care Team (Late st Contact Info) Description 11/16/2006 Outpatient Historical [facility] Internal Medicine Medical [facility] [address] [address] [address] Nina Contreras MD Social History Tobacco Use Types Packs/Day Years Used Date Smoking Tobacco: Never Assessed Comments Unknown Sex and Gender Information Value Date Recorded Sex Assigned at Not on file Legal Sex Female 4:22 AM HEAD HOUSEKEEPER Gender Identity Not on file Sexual Orientation Not on file documented as of this encounter Last Filed Vital Signs Vital Sign Reading Time Taken Comments Blood Pressure 150/100 11/16/2006 8:45 AM CDT Pulse 64 11/16/2006 8:45 AM CDT Temperature 36.2 C (97.1 F) 11/16/2006 8:45 AM CDT Respiratory Rate - - Oxygen Saturation - - Inhaled Oxygen Concentration - - Weight 84.8 kg (187 lb) 11/16/2006 8:45 AM CDT Height - - Body Mass Index 29.29 06/13/2004 9:30 AM HEAD HOUSEKEEPER documented in this encounter Plan of Treatment Not on file documented as of this encounter Visit Diagnoses Not on filedocumented in this encounter Care Teams Implementation Project Coordinator Relationship Specialty Start Date End Date Chance Medellin MD [address] [facility] [address] [place] [phone] PCP - General Internal Medicine 04/28/16 documented as of this encounter
--- OUTSIDE RECORDS SUMMARY | 2024-08-29 12:08 | XMS_ITS | Encounter Summary ---
Author Organization [facility] Address [address] [place] [address] Care Team Providers Care Cattle Farmer Name Role Phone Chance Medellin MD Primary Care Provider [phone] Encounter Details Date Type Department Care Team (Late st Contact Info) Description 07/09/2006 Outpatient Historical [facility] Internal Medicine Medical [facility] [address] [facility] [address] [phone] Nina Contreras MD Social History Tobacco Use Types Packs/Day Years Used Date Smoking Tobacco: Never Assessed Comments Unknown Sex and Gender Information Value Date Recorded Sex Assigned at Not on file Legal Sex Female 4:22 AM TREASURY REPRESENTATIVE Gender Identity Not on file Sexual Orientation Not on file documented as of this encounter Plan of Treatment Not on file documented as of this encounter Visit Diagnoses Not on filedocumented in this encounter Care Teams Cattle Farmer Relationship Specialty Start Date End Date Chance Medellin MD [address] [facility] [address] [place] [phone] PCP - General Internal Medicine 04/28/16 documented as of this encounter
--- OUTSIDE RECORDS SUMMARY | 2024-08-29 12:08 | XMS_ITS | Encounter Summary ---
Author Organization [employer] [facility] Address [address] [place] [address] Care Team Providers Care Naval Marine Engineer Name Role Phone Chance Medellin MD Primary Care Provider [phone] Encounter Details Date Type Department Care Team (Latest Contact Info) Description 05/19/2004 Outpatient Historical [facility] Nina Garcia MD MALIGNANT HYPERTENSION (Primary Dx) Social History Tobacco Use Types Packs/Day Years Used Date Smoking Tobacco: Never Assessed Comments Unknown Sex and Gender Information Value Date Recorded Sex Assigned at Not on file Legal Sex Female 4:22 AM MECHANICAL HANDYMAN Gender Identity Not on file Sexual Orientation Not on file documented as of this encounter Plan of Treatment Not on file documented as of this encounter Visit Diagnoses Diagnosis Essential hypertension, malignant- Primary documented in this encounter Care Teams Naval Marine Engineer Relationship Specialty Start Date End Date Chance Medellin MD [address] [facility] [address] [place] [phone] PCP - General Internal Medicine 04/28/16 documented as of this encounter
--- OUTSIDE RECORDS SUMMARY | 2024-08-29 12:08 | XMS_ITS | Encounter Summary ---
Author Organization [employer] [facility] Address [address] [place] [address] Care Team Providers Care Rail Gang Supervisor Name Role Phone Chance Medellin MD Primary Care Provider [phone] Encounter Details Date Type Department Care Team (Latest Contact Info) Description 07/09/2006 Outpatient Historical [facility] Nohemy Benitez MD [address] [facility] [address] [place] [address] Pain in Soft Tissues of Limb (Primary Dx) Social History Tobacco Use Types Packs/Day Years Used Date Smoking Tobacco: Never Assessed Comments Unknown Sex and Gender Information Value Date Recorded Sex Assigned at Not on file Legal Sex Female 4:22 AM CHEMICAL ANALYTICAL SAMPLER Gender Identity Not on file Sexual Orientation Not on file documented as of this encounter Plan of Treatment Not on file documented as of this encounter Visit Diagnoses Diagnosis Pain in limb- Primary documented in this encounter Care Teams Rail Gang Supervisor Relationship Specialty Start Date End Date Chance Medellin MD [address] [facility] [address] [place] [phone] PCP - General Internal Medicine 04/28/16 documented as of this encounter
--- OUTSIDE RECORDS SUMMARY | 2024-08-29 12:08 | XMS_ITS | Encounter Summary ---
Author Organization [employer] Address [address] [place] [address] Care Team Providers Care Travel Registered Nurse Nicu Name Role Phone Chance Medellin MD Primary Care Provider [phone] Encounter Details Date Type Department Care Team (Late st Contact Info) Description 10/05/2005 Outpatient Historical [facility] [address] [place] [address] Brad Adkins MD [address] [place] [address] Social History Tobacco Use Types Packs/Day Years Used Date Smoking Tobacco: Never Assessed Comments Unknown Sex and Gender Information Value Date Recorded Sex Assigned at Not on file Legal Sex Female 4:22 AM LAPIDARIST Gender Identity Not on file Sexual Orientation Not on file documented as of this encounter Plan of Treatment Not on file documented as of this encounter Visit Diagnoses Not on filedocumented in this encounter Care Teams Travel Registered Nurse Nicu Relationship Specialty Start Date End Date Chance Medellin MD [address] [facility] [address] [place] [phone] PCP - General Internal Medicine 04/28/16 documented as of this encounter
== END 2024-08-29 11:41 | disposition home or self-care (01) ==
PROVIDERS: PCP Student in an Organized Health Care Education/Training Program; Visit Provider Student in an Organized Health Care Education/Training Program
DX: M79.661 Pain in right lower leg (principal); M79.89 Other specified soft tissue disorders
CPT/HCPCS: 93971